=== PATIENT | female | born 1965 | race Caucasian/White ===

== ENCOUNTER → 2020-06-17 15:24 | Outpatient (CLI) | payer BC, SELFPAY ==
[2020-06-17 16:04] LABS: Chloride 106 mmol/L (98-107); Sodium 141 mmol/L (136-145)
[2020-06-17 16:05] LABS: Potassium 4.5 mmoL/L (3.5-5.1)
[2020-06-17 16:07] LABS: Alanine Aminotransferase 17 U/L (12-78); Albumin Level 4.9 g/dl (3.5-5.0); Alkaline Phosphatase 78 U/L (38-126); Anion Gap 10.5 mEq/L (5-15); Aspartate Amino Transferase 23 U/L (14-36); Bilirubin,Total 0.5 mg/dl (0.2-1.3); Blood Urea Nitrogen 21 mg/dl (7-17); Carbon Dioxide 29 mmol/L (22.0-30.0); Estimated Glomerular Filt Rate 87 ml/min (>60); GFR (African American) 106 ML/MIN (>60); Globulin 2.4 g/dL (1.3-3.2); Total Protein,Serum 7.3 g/dl (6.3-8.2)
[2020-06-17 16:08] LABS: Calcium 9.8 mg/dl (8.4-10.2); Glucose 108 mg/dl (74-100)
[2020-06-17 16:38] LABS: Thyroid Stimulating Hormone 1.63 uIU/mL (0.465-4.68)
[2020-06-17 16:44] LABS: Erythrocyte Sedimentation Rate 13 mm/hr (0-30)
[2020-06-22 17:41] LABS: Antinuclear Antibodies, IFA Negative (.)
== END ==
PROVIDERS: Visit Provider Family Medicine
DX: H01.004 Unspecified blepharitis left upper eyelid (principal); J30.1 Allergic rhinitis due to pollen
CPT/HCPCS: 80053; 84443; 85651; 86038

== ENCOUNTER → 2020-07-01 15:43 | Outpatient (POV) | payer BC, SELFPAY | PROVIDERS: Visit Provider Family Medicine | DX: Z00.00 Encounter for general adult medical examination without abnormal findings (principal) ==

== ENCOUNTER → 2020-07-29 14:59 | Outpatient (POV) | payer BC, SELFPAY | DX: Z00.00 Encounter for general adult medical examination without abnormal findings (principal) ==

== ENCOUNTER 2020-09-06 17:14 | Emergency (ER) | payer BC, SELFPAY ==
[2020-09-06 18:00] VITALS: BP 212/100; PULSE 72; RESP 22; TEMP 37; O2SAT 97; BMI 31.2
--- NOTE | 2020-09-06 18:36 | HMH.EDUTC ---
[facility] [place] Clinical Impression: Leg pain Qualifiers: Laterality: left Qualified Code(s): M79.605 - Pain in left leg Disposition: Home, Self-Care Condition on Discharge: Good Instructions: DI for Leg Pain Additional Instructions: You was given out patient order for venous dopler they should call you tomorrow to schedule this procedure Follow up with your Family Doctor if no improvement or any worsening of symptoms Return if needed Follow up with your Family Doctor as needed for re-evaluation of elevated blood pressure Straight to ER if any life threatening symptoms Warm compresses may help when pain starts Referrals: Anuj Brown MD [Primary Care Provider] - As needed Time of Disposition: 19:24 Medical Decision Making - Woodrow Inquiry Pt receiving controlled substance: No Woodrow was queried for this patient: No Vital Signs: 09/06/20 18:00 Temperature 98.6 F Temperature Source Oral Pulse Rate [Right Brachial] 72 Respiratory Rate 22 Blood Pressure [Right Arm] 212/100 H Blood Pressure Mean [Right Arm] 137 Blood Pressure Source [Right Arm] Automatic Cuff Blood Pressure Position [Right Arm] Sitting 02 Sat by Pulse Oximetry 97 Oxygen Delivery Method Room Air Orders (Tests/Meds): ORDERS Category Date Time Status XR tibia fibula LT 2V Stat Exams 09/06/20 18:39 Taken - Radiology Data #1 Image(s): Tib/Fib Image Reviewed: Yes I reviewed the patient's radiology image Preliminary Findings: No Fracture Seen Medical Decision Narrative: Patient blood pressure elevated discussed with patient about transfer to the ED and patient declined States that she was nervous about coming into the [facility] and did not want to be transferred she would follow up with her PCP [facility] [place] - General Stated complaint: left leg swelling and burning Time Seen by Provider: 09/06/20 18:36 Mode of Arrival: Ambulatory Source of Information: Patient Limitations: No Limitations Description of Symptoms (Recalled from Triage Doc. by RN): PATIENT C/O PAIN AND INTERMITTEN SWELLING TO LEFT LOWER LEG X 3-4 WEEKS HEENT Symptoms (Recalled from RN notes): No Resp Symptoms (Recalled from RN notes): No Skin Symptoms (Recalled from RN notes): No MS Symptoms (Recalled from RN notes): Yes Functional Status (Recalled from RN notes): WNL - History of Present Illness Provider Complaint: Patient states that she has been having burning like sensation on and off for several weeks States that it occurs most at night when she lays down States that burning pain has come and gone and sometimes her leg feels a little swollen States that she has not done anything that she is aware of to hurt it Denies any recent trips or long periods of sitting - Related Data Allergies Allergy/AdvReac Type Severity Reaction Status Date / Time No Known Allergies Allergy Verified 09/06/20 18:17 - Worker's Comp Is this a Worker's Comp case?: No [facility] History - Hepatitis A Screen Drug use history?: No High risk sexual behaviors?: No History of sexually transmitted infection?: No Currently employed?: No Childcare worker?: No Do you have indoor plumbing?: Yes Do you have electricity?: Yes Attestation statement:: This patient has been screened for Hepatitis A risk factors. I have reviewed the patient's past medical history: Yes - Social History Alcohol Intake: never Occupational Status: other ROS Obtained: Yes All systems reviewed & no additional complaints, Yes Systems reviewed as appropriate & no additional complaints - Constitutional Constitutional: Reports system reviewed and no additional complaints, except as docu - Cardiovascular Cardiovascular: Reports system reviewed and no additional complaints, except as docu - Respiratory Respiratory: Reports system reviewed and no additional complaints, except as docu - Gastrointestinal Gastrointestingal: Reports: system reviewed and no additional complaints, except as docu Physical Exam
--- NOTE | 2020-09-06 18:39 | XR_ITS ---
PROCEDURE INFORMATION: Exam: XR Left Tibia and Fibula Exam date and time: 09/06/2020 6:39 PM Age: 55 years old Clinical indication: Patient HX: Left lower leg pain for several weeks, no known injury. ; Additional info: Pain in lower leg TECHNIQUE: Imaging protocol: XR Left tibia and fibula. Views: 2 views. COMPARISON: No relevant prior studies available. FINDINGS: Bones/joints: No acute fracture or dislocation. No significant osteoarthrosis. No joint space erosion. Small dorsal calcaneal enthesophyte. Soft tissues: Normal. IMPRESSION: No acute osseous finding.
[2020-09-06 19:22] VITALS: BP 158/92
[2020-09-06 19:28] VITALS: BP 158/92; PULSE 72; RESP 22; TEMP 37; O2SAT 97
== END 2020-09-06 19:34 | disposition home or self-care (01) ==
PROVIDERS: Emergency Provider Nurse Practitioner; PCP Family Medicine
DX: M79.605 Pain in left leg (principal); R60.0 Localized edema
CPT/HCPCS: 73590; 99202; G0463

== ENCOUNTER → 2020-09-11 08:36 | Outpatient (CLI) | payer BC, SELFPAY ==
--- NOTE | 2020-09-11 08:45 | CA_ITS ---
APPROVED REPORT Left Lower Extremity Venous Study for DVT. Client Technical Professional: DESTINI Indications Lower Extremity Pain: Left Lower Extremity Edema: Left Pain in LLE x 3-4 weeks. She denies trauma. Pain is in the mid lateral aspect of the left calf. Vein Imaging CFV (L): compressive, spontaneous, phasic, augmentation FEM (L): compressive, spontaneous, phasic, augmentation POP (L): compressive, spontaneous, phasic, augmentation PTV (L): Compressible GSV (L): compressive, spontaneous, phasic, augmentation Peroneals (L):Compressible GAS (L): Compressible Findings No evidence of DVT or superficial thrombophlebitis in the veins scanned of the left lower extremity. Conclusion No evidence of DVT or superficial thrombophlebitis in the veins scanned of the left lower extremity. Electronically signed by : Kenn Oreilly MD 09/11/2020 15:10:30
== END ==
PROVIDERS: PCP Family Medicine; Visit Provider Nurse Practitioner
DX: M79.662 Pain in left lower leg (principal); M79.89 Other specified soft tissue disorders
CPT/HCPCS: 93971

== ENCOUNTER → 2020-09-15 14:24 | Outpatient (CLI) | payer BC, SELFPAY ==
--- NOTE | 2020-09-15 14:32 | XR_ITS ---
PROCEDURE: XR LUMBAR SPINE MIN 4V CLINICAL INDICATION: BACK PAIN COMPARISON: No exams were available for comparison FINDINGS: Minimal lumbar curvature convex left. No fracture or dislocation. No lytic or blastic change. There is mild degenerative disc disease at L2-L3. Facet arthritic changes are present at the lumbosacral junction. 5 mm stone is present in the mid polar region of the left kidney. IMPRESSION: Degenerative changes lumbar spine. Left nephrolithiasis Dictated by: Kenn Oreilly MD 09/15/2020 14:55 Kenn Oreilly MD in [place] 09/15/2020 14:55
== END ==
PROVIDERS: PCP Family Medicine; Visit Provider Nurse Practitioner Family
DX: M54.9 Dorsalgia, unspecified (principal); M54.5 Low back pain
CPT/HCPCS: 72110

== ENCOUNTER 2020-11-12 17:45 | Emergency (ER) | payer OTHER, BC, SELFPAY ==
[2020-11-12 18:50] VITALS: BP 212/88; PULSE 79; RESP 18; TEMP 36.8; O2SAT 99; BMI 31.2
--- NOTE | 2020-11-12 19:07 | XR_ITS ---
PROCEDURE INFORMATION: Exam: XR Right Foot Exam date and time: 11/12/2020 7:07 PM Age: 55 years old Clinical indication: Patient HX: Right lateral foot and heel pain for a week. Uses a pedal on a machine at work. No known injury. TECHNIQUE: Imaging protocol: XR Right foot. Views: 3 or more views. COMPARISON: No relevant prior studies available. FINDINGS: Bones/joints: Degenerative changes in the 1st tarsal metatarsal joint with joint space narrowing. Mild hallux valgus deformity. Calcaneal spurring. There is a fracture of the sesamoid bone adjacent to the cuboid. Soft tissues: Normal. IMPRESSION: Fracture of the sesamoid bone adjacent to the cuboid. No additional fracture or dislocation.
--- NOTE | 2020-11-12 20:10 | HMH.EDUTC ---
[facility] [place] Disposition Clinical Impression: Right foot pain, Tendinitis of right foot Disposition: Home, Self-Care Condition on Discharge: Good Instructions: DI for Tendinitis, DI for Foot Pain Additional Instructions: Rest the extremity, Wear the matthew wrap for compression, Elevate the extremity as tolerated while you are resting. Follow up with Dr. Domingo (podiatry). I put in a referral but you need to call her office and schedule an appointment. Sometimes ankle and foot tendonitis is hard to get completely better because you will still have to walk and use your foot a lot. So, plan on following up with the software test specialist. Follow up with your regular doctor. GO TO THE ER FOR ANY WORSENING SYMPTOMS Prescriptions: methylPREDNISolone [Medrol] 4 mg PO DIRECTED 6 Days #21 packet Transmission Status: Received by [id number] Referrals: Anuj Brown MD [Primary Care Provider] - Maegan Domingo DPM [Staff Physician] - Time of Disposition: 20:17 Medical Decision Making - Medical Records Medical records reviewed: No: I reviewed the patient's medical records. - Woodrow Inquiry Pt receiving controlled substance: No Vital Signs: 11/12/20 18:50 11/12/20 20:20 Temperature 98.2 F 98.2 F Temperature Source Oral Pulse Rate 79 Pulse Rate [Right Brachial] 79 Respiratory Rate 18 18 Blood Pressure 212/88 H Blood Pressure [Right Arm] 212/88 H Blood Pressure Mean [Right Arm] 129 Blood Pressure Source [Right Arm] Automatic Cuff Blood Pressure Position [Right Arm] Sitting 02 Sat by Pulse Oximetry 99 Oxygen Delivery Method Room Air - Radiology Data #1 Image(s): Foot/Toes Image Reviewed: Yes I reviewed the patient's radiology image Preliminary Findings: Abnormal PROCEDURE INFORMATION: Exam: XR Right Foot Exam date and time: 11/12/2020 7:07 PM Age: 55 years old Clinical indication: Patient HX: Right lateral foot and heel pain for a week. Uses a pedal on a machine at work. No known injury. TECHNIQUE: Imaging protocol: XR Right foot. Views: 3 or more views. COMPARISON: No relevant prior studies available. FINDINGS: Bones/joints: Degenerative changes in the 1st tarsal metatarsal joint with joint space narrowing. Mild hallux valgus deformity. Calcaneal spurring. There is a fracture of the sesamoid bone adjacent to the cuboid. Soft tissues: Normal. IMPRESSION: Fracture of the sesamoid bone adjacent to the cuboid. No additional fracture or dislocation. [facility] [place] HPI - General Stated complaint: right foot pain Time Seen by Provider: 11/12/20 19:00 Mode of Arrival: Ambulatory Source of Information: Patient Limitations: No Limitations Description of Symptoms (Recalled from Triage Doc. by RN): PATIENT C/O PAIN TO OUTER SIDE OF RIGHT FOOT X 2 WEEKS. STATES WHEN SHE WAS WALKING TODAY SHE HAD A SHARP RADIATE THROUGH HER ANKLE. NO KNOWN INJURY HEENT Symptoms (Recalled from RN notes): No Resp Symptoms (Recalled from RN notes): No Skin Symptoms (Recalled from RN notes): No MS Symptoms (Recalled from RN notes): Yes Functional Status (Recalled from RN notes): WNL - History of Present Illness Provider Complaint: She has been having right foot pain for the past 2 weeks. She denies any injury. She states that today her pain got worse, so she came in to try to get it checked out. She is not diabetic. - Related Data Previous Rx's Medication Instructions Recorded methylPREDNISolone [Medrol] 4 mg PO DIRECTED 6 Days #21 11/12/20 packet Allergies Allergy/AdvReac Type Severity Reaction Status Date / Time No Known Allergies Allergy Verified 09/06/20 18:17 - Worker's Comp Is this a Worker's Comp case?: No [facility] History - Hepatitis A Screen Drug use history?: No High risk sexual behaviors?: No History of sexually transmitted infection?: No Currently employed?: No Childcare worker?: No Do
[2020-11-12 20:20] VITALS: BP 212/88; PULSE 79; RESP 18; TEMP 36.8; O2SAT 99
== END 2020-11-12 20:25 | disposition home or self-care (01) ==
PROVIDERS: Emergency Provider Nurse Practitioner Family; PCP Family Medicine
DX: M77.51 Other enthesopathy of right foot and ankle (principal); S92.811A Other fracture of right foot, initial encounter for closed fracture
CPT/HCPCS: 73630; 99202; G0463

== ENCOUNTER 2020-11-13 11:26 | Outpatient (RCR) | payer BC, SELFPAY | END 2020-11-13 12:24 | disposition home or self-care (01) | LOC: PT 11:26 | PROVIDERS: Visit Provider Podiatrist | DX: M79.671 Pain in right foot (principal); M77.51 Other enthesopathy of right foot and ankle | CPT/HCPCS: 97760 ==

== ENCOUNTER → 2020-12-16 14:33 | Outpatient (CLI) | payer OTHER, SELFPAY ==
--- NOTE | 2020-12-16 14:34 | MR_ITS ---
PROCEDURE INFORMATION: Exam: MR Right Lower Extremity Other Than Joint Without and With Contrast; Foot Exam date and time: 12/16/2020 2:34 PM Age: 55 years old Clinical indication: Patient HX: Right lateral foot pain and swelling. No initial injury. Symptoms x1 month; Additional info: Evaluate right foot injury and pain TECHNIQUE: Imaging protocol: MR of the Right lower extremity without and with intravenous contrast. Exam focused on the foot. Contrast material: PROHANCE; Contrast volume: 15 ml; Contrast route: IV; COMPARISON: CR XR FOOT RT MIN 3V 11/12/2020 7:17 PM FINDINGS: Bones and cartilage: First MTP arthropathy. Cystic change is identified within the plantar aspect of the 1st metatarsal head. Increased STIR signal intensity is identified within the medial sub-hallux sesamoid bone, suggestive of a cyst or sesamoiditis. T1 isointense soft tissue plantar to the 5th metatarsal head, likely due to a pressure lesion. This is hyperintense on STIR. No dislocation of the foot. Mild valgus deviation of the great toe. An ossicle is identified adjacent to the calcaneocuboid joint with enhancement of the bone marrow and surrounding soft tissues. This enhancement is likely due to marrow and soft tissue edema, with fracture of this bone described on prior x-rays. Joint spaces: Effusion posterior to the tibiotalar joint. Minimal subtalar joint effusion. Small intermetatarsal effusion at the 1st interspace. LIGAMENTS: Calcaneofibular ligament: Mild edema adjacent to the calcaneofibular ligament without visualized tear. Ligament sprain is considered. Lisfranc ligament: No evidence of tear. TENDONS: Flexor tendons of foot: Mild fluid adjacent to the flexor hallucis tendon, suggestive of tenosynovitis. Tibialis posterior tendon: No evidence of tear. Peroneal tendons: Partial split tear of the peroneus brevis tendon. Partial tear also visualized of the peroneus longus tendon. There is mild fluid adjacent to the peroneal tendons. Extensor tendons of foot: No evidence of tear. Tibialis anterior tendon: No evidence of tear. Achilles tendon: There is a decrease in caliber of the distal Achilles tendon, suggestive of partial tear. Mild heterogeneous signal intensity of the Achilles tendon. Tarsal canal (Sinus tarsi): Edema within the sinus tarsi. Soft tissues: Minimal fluid within the retrocalcaneal bursa. Mild soft tissue swelling plantar to the 2nd MTP joint. The above. Plantar fascia: Thickening and heterogeneous signal intensity of the proximal plantar fascia with adjacent heel pad edema, consistent with plantar fasciitis. IMPRESSION: 1. Partial split tear of the peroneus brevis tendon. Partial tear also visualized of the peroneus longus tendon. There is mild fluid adjacent to the peroneal tendons. 2. An ossicle is identified adjacent to the calcaneocuboid joint with enhancement of the bone marrow and surrounding soft tissues. This enhancement is likely due to marrow and soft tissue edema, with fracture of this bone described on prior x-rays. 3. MR findings consistent with plantar fasciitis. 4. Effusion posterior to the tibiotalar joint. Minimal subtalar joint effusion. 5. There is a decrease in caliber of the distal Achilles tendon, suggestive of partial tear. Clinical correlation is recommended. 6. First MTP arthropathy. Cystic change is identified within the plantar aspect of the 1st metatarsal head. 7. Increased STIR signal intensity is identified within the medial sub-hallux sesamoid bone, suggestive of a cyst or sesamoiditis. 8. Mild valgus deviation of the great toe. 9. Mild edema adjacent to the calcaneofibular ligament without visual
== END ==
PROVIDERS: PCP Family Medicine; Visit Provider Podiatrist
DX: M79.671 Pain in right foot (principal); M77.51 Other enthesopathy of right foot and ankle
CPT/HCPCS: 73720; A9576

== ENCOUNTER 2020-12-28 13:34 | Outpatient (RCR) | payer BC, MEDICAID, SELFPAY ==
--- NOTE | 2020-12-28 15:07 | HMH.PTOPEV ---
PT Outpatient Evaluation Rehab PT Outpatient Evaluation Start: 12/28/20 13:37 Freq: Status: Active Protocol: Document 12/28/20 13:45 CHRISTOPHERVANGIE (Rec: 12/28/20 15:07 GUSTABO [id number]) Electronically Signed By Butch Evans, JOHNSON 12/28/20 13:45 Outpatient Therapy Subjective History Subjective History This is the initial evaluation for Shell Rosado. Pt is a 55 y /o female referred for Peroneal tendonitis. Pt reports she uses a foot pedal at work all day. She states one day she got up and started walking when she felt and heard a crack in her R ankle. Pt reported a 10/10 pain with swelling. Pt went to ED to get imaging, but imaging was negative for fractures. Pt was told she had peroneal tendonitis and then given a boot. Pt later went to Foot doctor where imaging then found Peroneal longus/brevis partial tears and other associated injuries. Pt's boot was d/c last Monday and progressed to a tie up foot brace. Pt has been off work but is retuning MondayJanuary 04. 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/Reading,Recreation Activity,Walking Symptom Description Intermittent Level of pain today (0-10) 3 Pain scale - at its best (0-10) 0 Pain scale - at its worst (0-10) 10 Ankle/Foot Eval Gait Observation General Gait Pattern Observation No Deviations/Normal Palpation Tenderness right Ankle/Foot Palpation Findings Tenderness Ankle/Foot Palpation Overall Comment along Peroneal longus/brevis insertions/tendons ROM Ankle/Foot Dorsiflexion w/Knee Extended 35 Active Range Motion (degrees) Ankle/Foot Plantar Flexion Active Range 60 of Motion (degrees) Ankle/Foot Eversion Active Range of 23 Motion (degrees) Ankle/Foot Inversion Active Range of 31 Motion (degrees) MMT Ankle Dorsiflexion Strength Grade 5 Normal Ankle Plantarflexion Strength Grade
== END 2020-12-28 13:40 | disposition home or self-care (01) ==
LOC: PT 13:34
PROVIDERS: PCP Family Medicine; Visit Provider Podiatrist
DX: M79.671 Pain in right foot (principal); M76.71 Peroneal tendinitis, right leg; M77.51 Other enthesopathy of right foot and ankle
CPT/HCPCS: 97163

== ENCOUNTER → 2021-02-16 09:56 | Outpatient (CLI) | payer BC, SELFPAY | PROVIDERS: PCP Family Medicine; Visit Provider Nurse Practitioner | DX: Z20.822 Contact with and (suspected) exposure to COVID-19 (principal) | CPT/HCPCS: C9803; U0003; U0005 ==

== ENCOUNTER 2021-02-19 15:47 | Outpatient (RCR) | payer BC, MEDICAID, SELFPAY ==
--- NOTE | 2021-02-19 16:41 | HMH.PTOPEV ---
PT Outpatient Evaluation Rehab PT Outpatient Evaluation Start: 02/19/21 15:58 Freq: Status: Active Protocol: Document 02/19/21 16:24 IRENEPERLA (Rec: 02/19/21 16:34 IRENEILSAALOK [id number]) Electronically Signed By Sergio Lerma, PT 02/19/21 16:24 Outpatient Therapy Subjective History Subjective History This is the inital evaluation for the 2nd episode of PT for this patient. Pt is a 55 y/o female initially referred for Peroneal tendonitis. Pt reports she uses a foot pedal at work all day. She states one day she got up and started walking when she felt and heard a crack in her R ankle. Pt reported a 10/10 pain with swelling following initial injury. Pt went to ED to get imaging, but imaging was negative for fractures. Pt was told she had peroneal tendonitis and then given a boot. Pt later went to Foot doctor where imaging then found Peroneal longus/brevis partial tears and other associated injuries. Patient ran out of approved visit from her initial episode. Patient has since returned to full duty at work with no functional limitations at work or home. Patient reports no pain. All ROM/MMT measurements WFL. Patient states that she believes she does not need therapy. Ankle/Foot Eval Palpation Tenderness right Ankle/Foot Palpation Findings None/Normal ROM Ankle/Foot Dorsiflexion w/Knee Extended WFL Active Range Motion (degrees) Ankle/Foot Plantar Flexion Active Range WFL of Motion (degrees) Ankle/Foot Eversion Active Range of WFL Motion (degrees) Ankle/Foot Inversion Active Range of WFL Motion (degrees) Great Toe ROM Reason Not Measured Within Functional Limits MMT Ankle Dorsiflexion Strength Grade 5 Normal Ankle Plantarflexion Strength Grade 5 Normal Foot Eversion Strength Grade 5 Normal Foot Inversion Strength Grade 5 Normal Special Tests Ankle Anterior Drawer Test Negative Right Ankle Eversion Test Negative Right
== END 2021-02-19 15:50 | disposition home or self-care (01) ==
LOC: PT 15:47
PROVIDERS: Visit Provider Podiatrist
DX: S92.901A Unspecified fracture of right foot, initial encounter for closed fracture (principal); S86.311A Strain of muscle(s) and tendon(s) of peroneal muscle group at lower leg level, right leg, initial encounter; M76.71 Peroneal tendinitis, right leg
CPT/HCPCS: 97163

== ENCOUNTER → 2021-04-28 13:17 | Outpatient (CLI) | payer BC, SELFPAY ==
--- NOTE | 2021-04-28 | CA_ITS ---
APPROVED REPORT EXAM: Comprehensive 2D, Doppler, and color-flow Echocardiogram Licensing Engineer: Shanelle Gallagher RT(R) Ht: 5 ft 0 in Wt: 160lbs BSA: 1.70 BP: 169/83 mmHg Indications: HTN, murmur, palpitations 2D Dimensions LVOT 1.91 cm (M/F) 1.5-2.5 LVEF (Goodwin's) 73.40 % F: 54 - 74 LV Volume 64.30 mL F: 46 - 106 LV Volume Index 38.04 mL/m2 F: 29 - 61 LA Volume 32.30 mL LA Volume Index 19.11 mL/m2 (M/F) 16-34 M-Mode Dimensions RVDd 2.88 cm (0.9-2.6) LA Diam 3.39 cm (1.9-4.0) LVDd 4.56 cm (3.5-5.7) Ao Diam 2.40 cm (2.0-3.7) LVDs 3.29 cm (3.5-5.7) IVSd 0.90 cm (0.6-1.1) PWd 0.86 cm (0.6-1.1) EF (Teich) 54.10% FS 27.90% EDV (Teich) 95.40 mL ESV (Teich) 43.80 mL LV Diastology E Decel Time 233.00 (160-240 msec) E/A Ratio 0.9 MED E' 8.80 (< 7 cm/sec) E'/MED E' Ratio 10.50 (>14) LAT E' 9.90 (<10 cm/sec) E/LAT E' Ratio 9.33 (>14) Mitral Valve MV E Max Juan. 92.00 (40-130 cm/s) MV A Velocity 97.00 (40-130 cm/s) E/A Ratio 0.95 MV Decel. Time 233.00 (160-240 ms) MV PHT 68.00 ms Tricuspid Valve TR P. Velocity 256.00 cm/s RAP Estimate 10.00 mmHg RVSP 36.30 mmHg Left Ventricle Left atrium is mildly enlarged, left ventricle is normal size, mild concentric left ventricular hypertrophy, visually estimated ejection fraction 55% with no regional wall motion abnormality, diastolic parameters are inconclusive in the study. Right Ventricle Right atrium and right ventricle relatively normal size and function. Aortic Valve Aortic valve is minimally thickened and fibrosed, there is no aortic stenosis or aortic insufficiency. Mitral Valve Mitral valve grossly normal, there is trace mitral regurgitation. Tricuspid Valve Tricuspid valve grossly normal, there is trace tricuspid regurgitation, tricuspid regurgitation jet velocity is inadequate for calculation of the right ventricular systolic pressure. Pulmonic Valve Pulmonic valve is poorly visualized. Great Vessels Aortic root is normal size. Inferior vena cava is poorly visualized. Pericardium No significant pericardial effusion noted. Conclusion 1. Mildly enlarged left atrium, normal left ventricular size, mild concentric left ventricular hypertrophy, visually estimated ejection fraction 55% with no regional wall motion abnormality, diastolic parameters are inconclusive. 2. Trace mitral and tricuspid regurgitation. 3. No significant pericardial effusion. 4. Inferior vena cava is poorly visualized. Electronically signed by : Sammy Zuluaga MD 04/28/2021 20:08:44
== END ==
PROVIDERS: PCP Family Medicine; Visit Provider Family Medicine
DX: I10 Essential (primary) hypertension (principal)
CPT/HCPCS: 93306

== ENCOUNTER → 2022-01-18 09:17 | Outpatient (CLI) | payer BC, SELFPAY ==
--- NOTE | 2022-01-18 09:19 | MM_ITS ---
PROCEDURE INFORMATION: Exam: Bilateral Screening 3D Mammography Exam date and time: 01/18/2022 9:17 AM Age: 56 years old Clinical indication: Screening examination. No family history of breast cancer. TECHNIQUE: Imaging protocol: Bilateral Screening tomosynthesis and 2D mammography including computer-aided detection (CAD) when performed. COMPARISON: [facility] DIG MAMM-SCREEN PAIGE 12/16/2013 2:32 PM FINDINGS: MAMMOGRAPHY: Breast composition: There are scattered areas of fibroglandular density. Mass: No suspicious mass. Architectural distortion: None. Calcifications: No suspicious calcifications. Asymmetric density: None. Skin thickening: None. Axillary adenopathy: None. IMPRESSION: No mammographic evidence of malignancy. Annual screening is recommended unless otherwise clinically indicated. ASSESSMENT: BI-RADS Category 1: Negative
== END ==
PROVIDERS: PCP Family Medicine; Visit Provider Family Medicine
DX: Z12.31 Encounter for screening mammogram for malignant neoplasm of breast (principal)
CPT/HCPCS: 77063; 77067

== ENCOUNTER 2022-05-10 18:45 | Emergency (ER) | payer BC, SELFPAY ==
[2022-05-10] VITALS (8 sets, daily range): BP systolic 123–143; BP diastolic 63–78; PULSE 64–78; RESP 14–16; TEMP 36.6; O2SAT 97–100; BMI 31.2
--- NOTE | 2022-05-10 19:16 | CT_ITS ---
PROCEDURE INFORMATION: Exam: CT Abdomen And Pelvis With Contrast Exam date and time: 05/10/2022 7:46 PM Age: 57 years old Clinical indication: Abdominal pain; Localized; Left lower quadrant (llq); Additional info: Llq pain TECHNIQUE: Imaging protocol: Computed tomography of the abdomen and pelvis with contrast. Radiation optimization: All CT scans at this facility use at least one of these dose optimization techniques: automated exposure control; mA and/or kV adjustment per patient size (includes targeted exams where dose is matched to clinical indication); or iterative reconstruction. Contrast material: ISOVUE; Contrast volume: 75 ml; Contrast route: IV; REPORTING DATA: Count of CT and Cardiac NM exams in prior 12 months: This patient has received 0 known CTs and 0 known cardiac nuclear medicine studies in the 12 months prior to the current study. COMPARISON: CR XR LUMBAR SPINE MIN 4V 09/15/2020 2:34 PM FINDINGS: Liver: Normal. No mass. Gallbladder and bile ducts: Normal. No calcified stones. No ductal dilation. Pancreas: Normal. No ductal dilation. Spleen: Normal. No splenomegaly. Adrenal glands: Normal. No mass. Kidneys and ureters: Multiple small calyceal stones noted in both kidneys. No evidence of obstructing ureteral stone or hydronephrosis. Stomach and bowel: There is moderate diverticulosis throughout the distal colon. Focal wall thickening and inflammatory changes seen in the lower descending colon compatible with acute diverticulitis. No evidence of diverticular perforation or abscess. Appendix: No evidence of appendicitis. Intraperitoneal space: Unremarkable. No free air. No significant fluid collection. Vasculature: Unremarkable. No abdominal aortic aneurysm. Lymph nodes: Unremarkable. No enlarged lymph nodes. Urinary bladder: Unremarkable as visualized. Reproductive: Uterus is surgically absent. There is a 2.5 cm simple appearing left adnexal cyst. Pelvic organs are otherwise unremarkable. Bones/joints: There is mild thoracolumbar scoliosis and multilevel degenerative disease. Soft tissues: Unremarkable. IMPRESSION: 1. Uncomplicated acute diverticulitis of the distal descending colon 2. 2.5 cm simple appearing left adnexal cyst in the pelvis compatible with a benign physiologic cyst. No further workup indicated. 3. Bilateral nephrolithiasis without evidence of obstructing ureteral stone or hydronephrosis
[2022-05-10 19:19] LABS: Microscopic, Urine URINE MICROSCOPIC (MICROSCOPIC)
[2022-05-10 19:26] LABS: Basophils # 0.2 K/mm3 (0-0.2); Basophils % 1.8 % (0.1-2.0); Eosinophils # 0.3 K/mm3 (0.0-0.4); Eosinophils % 2.8 % (0.1-12.0); Hematocrit 40.6 % (37.0-47.0); Hemoglobin 13.7 g/dL (12.2-16.2); Lymphocytes # 2.1 K/mm3 (0.7-4.5); Lymphocytes % 21.6 % (10-50); Mean Corpuscular HGB Conc 33.7 g/dL (31.8-35.4); Mean Corpuscular Hemoglobin 29.2 pg (27.0-31.2); Mean Corpuscular Volume 86.7 fl (81-99); Mean Platelet Volume 8.5 fl (7.4-10.4); Monocytes # 0.6 K/mm3 (0.1-1.0); Monocytes % 6.1 % (1.7-9.3); Neutrophils # 6.6 K/mm3 (1.8-7.8); Neutrophils % 67.6 % (37.0-80.0); Platelet Count 306 K/mm3 (142-424); Red Blood Count 4.69 M/mm3 (4.20-5.40); Red Cell Distribution Width 13.6 % (11.5-17.5); White Blood Count 9.7 K/mm3 (4.8-10.8)
[2022-05-10 19:29] LABS: Chloride 104 mmol/L (98-107); Potassium 3.1 mmoL/L (3.5-5.1); Sodium 139 mmol/L (136-145)
[2022-05-10 19:32] LABS: Alanine Aminotransferase 28 U/L (12-78); Albumin Level 4.9 g/dl (3.5-5.0); Alkaline Phosphatase 105 U/L (38-126); Amylase 88 U/L (30-110); Anion Gap 11.1 mEq/L (5-15); Aspartate Amino Transferase 37 U/L (14-36); Bilirubin,Total 0.4 mg/dl (0.2-1.3); Blood Urea Nitrogen 25 mg/dl (7-17); Carbon Dioxide 27 mmol/L (22.0-30.0); Creatinine Clearance Estimated 90 mL/min (50-200); Estimated Glomerular Filt Rate 74 ml/min (>60); GFR (African American) 90 ML/MIN (>60); Glucose 112 mg/dl (74-100); Lipase 99 U/L (23-300)
[2022-05-10 19:33] LABS: Albumin/Globulin Ratio 1.4 (1.1-1.8); Globulin 3.4 g/dL (1.3-3.2); Total Protein,Serum 8.3 g/dl (6.3-8.2)
[2022-05-10 19:35] LABS: Appearance,Urine CLEAR (Clear); Bilirubin,Urine Negative (Negative); Blood, Urine TRACE-I (Negative); Color,Urine YELLOW (Yellow); Glucose,Urine (UA) Negative (Negative); Ketones,Urine Negative (Negative); Leukocyte Esterase,Urine Negative (Negative); Nitrate,Urine Negative (Negative); PH,Urine 5.5 (5.0-8.5); Protein,Urine Negative (Negative); Specific Gravity, Urine >= 1.030 (1.005-1.030); Urobilinogen,Urine 0.2 EU/dl (0.2)
--- NOTE | 2022-05-10 19:41 | PC.NURSE ---
Pt gone to RAD via wheelchair
[2022-05-10 19:49] LABS: WBC,Urine Occasional #/hpf (0-3)
--- NOTE | 2022-05-10 20:09 | PC.NURSE ---
Pt back from RAD
--- NOTE | 2022-05-10 21:05 | PC.NURSE ---
Dr. Mack at
--- NOTE | 2022-05-10 21:07 | HMH.EDABDPAI ---
Discharge Plan Disposition Patient Disposition: Home, Self-Care Prescriptions Prescriptions: New metronidazole 500 mg Tablet 500 mg PO TID Qty: 30 0RF levofloxacin 500 mg tablet 500 mg PO DAILY Qty: 10 0RF Referrals Follow up/Referrals: Anuj Brown MD [Primary Care Provider] - See instructions Clinical Impressions Clinical Impression: Diverticulitis Instructions Patient Instructions: DI for Diverticulitis Discharge ED Provider: Frederick (ED),Vernon Bautista Abdominal Pain HPI General Chief Complaint: Abdominal Pain Stated Complaint: left side pain Time Seen by Provider: 05/10/22 21:07 Mode of Arrival: Ambulatory Source of Information: Patient and Medical Record Limitations: No Limitations Description of Symptoms (Recalled from ER Triage Doc. by RN): Pt c/o sharp LLQ pain since yesterday, tender to palpation. pt denies n/v/d or burning with urination. pain /10 History of Present Illness HPI narrative: pt with lt lower abd pain since yesterday w/o fever or trauma or rash - no urinary sx complaint: abdominal pain Onset (ago): day(s) Consistency: constant Location: LLQ Severity: moderate Associated symptoms: denies other symptoms Related Data Previous Rx's Medication Instructions Recorded levofloxacin 500 mg tablet 500 mg PO DAILY #10 tabs 05/10/22 metronidazole 500 mg tablet 500 mg PO TID #30 tabs 05/10/22 Allergies Allergy/AdvReac Type Severity Reaction Status Date / Time No Known Allergies Allergy Verified 05/10/22 19:30 [facility] Disclaimer: The information contained in this section may have been updated after the patient was seen, as this information can be updated by other users. Medical History (Updated 05/10/22 @ 21:23 by Vernon Mack (ED)MD) Hyperlipidemia Hypertension Hypertension Surgical History (Updated 05/10/22 @ 19:30 by Ashlyn Tomas RN) History of hysterectomy Social History Smoking Status: Never smoker alcohol intake: never current occupational status: other Travel in the last 8 weeks: None ROS Obtained: Yes All systems reviewed & no additional complaints except as documented Physical Exam General General appearance: alert Head Head exam: normocephalic Eye Eye exam: Present PERRL and EOMI ENT ENT exam: Present mucous membranes moist Neck Neck exam: Present trachea midline Respiratory Respiratory exam: Absent respiratory distress Cardiovascular Cardiovascular exam: Present regular rate Abdominal Exam Abdominal exam: Present soft and tenderness; Absent guarding or rebound Abdominal tenderness: Present LLQ and moderate Extremities Exam Extremities exam: Present full ROM Back Exam Back exam: Absent CVA tenderness (L) Neurological Exam Neurological exam: Present alert, oriented X3 and CN II-XII intact; Absent motor sensory deficit Psychiatric Psychiatric exam: Present normal affect Skin Skin exam: Absent rash Medical Decision Making Medical Records Medical records reviewed: Yes I reviewed the patient's medical records. [place] Inquiry Pt receiving controlled substance: No Vital Signs: 05/10/22 19:00 05/10/22 19:30 05/10/22 20:00 Temperature 97.8 F Temperature Source Oral Pulse Rate 68 69 Pulse Rate [Right] 78 Respiratory Rate 14 Blood Pressure 123/70 128/63 Blood Pressure [Right Arm] 135/73 Blood Pressure Mean [Right Arm] 93 Blood Pressure Source [Right Arm] Automatic Cuff Blood Pressure Position [Right Arm] Sitting 02 Sat by Pulse Oximetry 97 97 97 Oxygen Delivery Method Room Air Room Air Lab Data Lab results reviewed: Yes I reviewed the patient's lab results. Lab Results 05/10/22 19:11: Urine Color Yellow, Urine Appearance Clear, Urine pH 5.5, Ur Specific [place] >= 1.030, Urine Protein Negative, Urine Glucose (UA) Negative, Urine Ketones Negative, Urine Blood Trace-i, Urine Nitrate Negative, Urine Bilirubin Negative, Urine Urobilinogen 0.2, Ur Leukocyte Esterase Negative, Uri
--- NOTE | 2022-05-10 21:25 | PC.NURSE ---
Dr. Mack speaking with Dr. Brown
== END 2022-05-10 22:35 | disposition home or self-care (01) ==
PROVIDERS: Emergency Medicine; Emergency Provider Emergency Medicine; PCP Family Medicine
DX: K57.92 Diverticulitis of intestine, part unspecified, without perforation or abscess without bleeding (principal); R10.32 Left lower quadrant pain; E78.5 Hyperlipidemia, unspecified; I10 Essential (primary) hypertension; Z90.710 Acquired absence of both cervix and uterus
CPT/HCPCS: 74177; 80053; 81001; 82150; 83690; 85025; 96361; 96374; 96375; 99285; Q9967

== ENCOUNTER 2022-05-16 11:39 | Emergency (ER) | payer BC, SELFPAY ==
[2022-05-16 12:30] VITALS: BP 133/79; PULSE 83; RESP 20; TEMP 36.8; O2SAT 98; BMI 45.8
--- NOTE | 2022-05-16 12:40 | XR_ITS ---
FINAL REPORT CLINICAL HISTORY: Chest congestion, cough FINDINGS: Two views of the chest were obtained. The heart size and pulmonary vascularity are within normal limits. The mediastinum is normal. No acute pulmonary abnormality is identified. There is no pneumothorax. The bony thorax is intact. IMPRESSION: No active cardiopulmonary disease. Reviewed, Interpreted and Dictated by Aguilar Chau III, MD Transcribed by Patt Heath Authenticated and [facility]
--- NOTE | 2022-05-16 13:05 | EXP.UTC ---
Discharge Plan Disposition Patient Disposition: Home, Self-Care Condition: Good Prescriptions Prescriptions: No Action lisinopril-hydrochlorothiazide 20-12.5 mg tablet 1 tab PO DAILY Label Comments: TAKE 1 TABLET BY MOUTH ONCE DAILY potassium chloride 10 mEq tablet extended release 10 meq PO DAILY Label Comments: TAKE 1 TABLET BY MOUTH TWICE DAILY venlafaxine 37.5 mg tablet 37.5 mg PO DAILY Label Comments: TAKE 1 TABLET BY MOUTH ONCE DAILY metoprolol succinate 25 mg tablet extended release 24 hr 25 mg PO DAILY Label Comments: TAKE 1 TABLET BY MOUTH AT BEDTIME rosuvastatin 10 mg tablet 10 mg PO DAILY topiramate 50 mg tablet 50 mg PO DAILY Label Comments: TAKE 1 TABLET BY MOUTH ONCE DAILY AT BEDTIME metronidazole 500 mg tablet 500 mg PO TID levofloxacin 500 mg tablet 500 mg PO DAILY Referrals Follow up/Referrals: Anuj Brown MD [Primary Care Provider] - See instructions Activity Restrictions/Add. Instructions Additional Instructions/Restrictions: *Monitor Temp, Over the counter Motrin or Tylenol as directed/as needed Tylenol every 4 hours and Motrin every 6 hours (as long as your family doctor has told you that you can take it) for fever or pain. and straight to ER if unable to lower temp less than 101.0 after medication given *Warm salt water gargles may help to soothe the throat *Throat Lozenges? *Warm fluids like tea with honey may help to soothe the throat? *Sleep elevated *Humidifier/Vaporizer Continue taking Levaquin as prescribed Follow up IMMEDIATELY for new or worsening symptoms or no Noticeable improvement over the next 48-72 hours. 911 for difficulty breathing or swallowing Clinical Impressions Clinical Impression: URI (upper respiratory infection) Instructions Patient Instructions: Levofloxacin, Guaifenesin Discharge ED Provider: Marly Molina [facility] HPI General Stated complaint: congestion,cough,headache Mode of Arrival: Ambulatory Source of Information: Patient Limitations: No Limitations Time Seen by Provider: 05/16/22 13:05 Description of Symptoms (Recalled from Triage Doc. by RN): weak, cough, LINARES, congestion, hurts in ears HEENT Symptoms (Recalled from RN notes): Yes Resp Symptoms (Recalled from RN notes): No Skin Symptoms (Recalled from RN notes): No MS Symptoms (Recalled from RN notes): No Functional Status (Recalled from RN notes): n/a History of Present Illness Provider Complaint: Patient states that she is currently on Levaquin States that for the last couple of days she will cough up some white colored mucous and today her ears was hurting and she was feeling tired and achy states that she was worried that she may be getting bronchitis or something so she came in to get checked Related Data Home Medications Medication Instructions Recorded Confirmed levofloxacin 500 mg tablet 500 mg PO DAILY abx 05/16/22 05/16/22 lisinopril 20 1 tab PO DAILY . 05/16/22 05/16/22 mg-hydrochlorothiazide 12.5 mg tablet metoprolol succinate 25 mg 25 mg PO DAILY . 05/16/22 05/16/22 tablet,extended release 24 hr metronidazole 500 mg tablet 500 mg PO TID abx 05/16/22 05/16/22 potassium chloride 10 mEq 10 meq PO DAILY . 05/16/22 05/16/22 tablet,extended release rosuvastatin 10 mg tablet 10 mg PO DAILY . 05/16/22 05/16/22 topiramate 50 mg tablet 50 mg PO DAILY . 05/16/22 05/16/22 venlafaxine 37.5 mg tablet 37.5 mg PO DAILY . 05/16/22 05/16/22 Allergies Allergy/AdvReac Type Severity Reaction Status Date / Time No Known Allergies Allergy Verified 05/16/22 12:43 Worker's Comp Is this a Worker's Comp case?: No [facility] Disclaimer: The information contained in this section may have been updated after the patient was seen, as this information can be updated by other users. Medical History (Updated 05/16/22 @ 14:08 by Marly Molina APRN) Hyperlipidemia Hyperten
[2022-05-16 14:21] VITALS: BP 133/79; PULSE 83; RESP 20; TEMP 36.8; O2SAT 98
== END 2022-05-16 14:15 | disposition home or self-care (01) ==
PROVIDERS: Emergency Provider Nurse Practitioner; PCP Family Medicine
DX: J06.9 Acute upper respiratory infection, unspecified (principal); R51.9 Headache, unspecified
CPT/HCPCS: 71046; 99212; 99214; G0463

== ENCOUNTER 2022-07-08 11:16 | Day surgery (SDC) | payer BC, SELFPAY ==
[2022-07-08 11:41] VITALS: BP 147/74; PULSE 80; RESP 16; TEMP 36.4; O2SAT 98; BMI 26.1
--- NOTE | 2022-07-08 12:27 | EXP.ANES.CKL ---
[facility] Disclaimer: The information contained in this section may have been updated after the patient was seen, as this information can be updated by other users. Medical History Hyperlipidemia Hypertension Hypertension Surgical History History of hysterectomy Family History (Updated 07/08/22 @ 11:41 by Mandi Macedo RN) Other No significant family history Social History (Updated 07/08/22 @ 11:40 by Mandi Macedo RN) Smoking Status: Never smoker alcohol intake: never substance use type: denies use current occupational status: employed Travel in the last 8 weeks: None [facility] Anesthesia Checklist Patient Identification Patient Identification: Arm Band and Family Structural Data Admitted From: Home Planned Operative Procedure/s: Colonoscopy Consent for Planned Operative Procedure(s) Verified: Yes Verified Documents: Surgical Consent and History and Physical NPO Status Verified Time NPO: 00:00 Additional verifications Patient : No Anesthesia Reactions: No Hx Blood Transfusions: No Blood Transfusion Reaction: No Cephalosporin Allergy: No Previous Colonoscopy: No Airway Assessment C-Spine Mobility Assessed: Yes TMJ Mobility Assessed: Yes Dentition: Good Dentition Neurological Assessment Level of Consciousness: Awake, Alert, Appropriate and Follows Commands Hx Seizures: No Numbness or tingling in extremities: No Anesthesia Plan Anesthesia Risk discussed: Yes ASA Class: II Anesthesia Type: MAC Preoperative Comments Pre-Operative Comments: Hypertension. No previous colonoscopy.
[2022-07-08 13:51] VITALS: O2SAT 98
--- NOTE | 2022-07-08 14:20 | P.PCN_ITS ---
Procedure: Date: 07/08/22 Patient Date of :: 1965 Procedure Performed:: Total colonoscopy to terminal ileum Indications:: Patient is a 57-year-old female. She has never had previous colonoscopy. She did present to the emergency department on 05/10/2022 with left lower quadrant pain and work-up revealed uncomplicated diverticulitis which was able to be managed as an outpatient. Performing Provider:: Aguilar Roldan MD Referring Provider:: Jordon Brown MD Sedation:: MAC sedation Procedure:: Patient history was obtained and appropriate physical examination was performed. Patient's medications and allergies were reviewed. Informed consent was obtained after explaining the benefits, alternatives, and risks of the procedure including, but not limited to, bleeding, perforation, missed lesions, and ad verse reaction to anesthesia medications. Patient was transported to endoscopy procedure room. Patient was connected to monitoring devices. Throughout the procedure the patient's blood pressure, p ulse, and oxygen saturations were monitored continuously. Patient identification and planned procedure were verified by the staff. Patient was positioned in lateral decubitus position. Digital anorectal exam was performed. Variable stiffness Olympus colonoscope was inserted and advanced under direct visualization to the cecum. Adequacy of the colonic preparation was noted. The colonoscope was advanced a short distance into the terminal ileum. The colonoscope was then slowly withdrawn while carefully examining the color, texture, anatomy, and integrity of the mucosoa circumferentially. Within the rectum retroflexion was performed. Colonoscope was then withdrawn. There was noted to be some particulate liquid stool throughout the colon and this was mostly cleared with thorough trans colonoscopic irrigation and suctioning. She did have some stool coating the thomas of the cecum and ascending colon. Findings:: Mild diverticular disease between 25 and 30 cm from the anal verge Recommendations:: Recommend repeat colonoscopy 5 to 7 years as this is her initial screening colonoscopy and prep was somewhat suboptimal. Complications:: None immediately apparent Estimated blood obtained (mL): 0
[2022-07-08 14:23] VITALS: BP 131/73; PULSE 82; RESP 16; TEMP 36.6; O2SAT 100
[2022-07-08 14:33] VITALS: BP 140/77; PULSE 75; RESP 16; O2SAT 99
[2022-07-08 14:38] VITALS: BP 120/60; PULSE 80; RESP 17; O2SAT 100
[2022-07-08 14:53] VITALS: BP 121/63; PULSE 77; RESP 16; O2SAT 100
== END 2022-07-08 14:55 | disposition home or self-care (01) ==
PROVIDERS: PCP Family Medicine; Visit Provider Surgery
PROC: 0DJD8ZZ Inspection of Lower Intestinal Tract, Via Natural or Artificial Opening Endoscopic (ICD-10-PCS; CPT 45378; principal; 2022-07-08 12:30)
DX: K57.92 Diverticulitis of intestine, part unspecified, without perforation or abscess without bleeding (principal); Z79.899 Other long term (current) drug therapy
CPT/HCPCS: 45378

== ENCOUNTER 2022-12-02 15:05 | Emergency (ER) | payer BC, SELFPAY ==
--- NOTE | 2022-12-02 15:07 | EXP.UTC ---
Discharge Plan Disposition Patient Disposition: Home, Self-Care Condition: Good Prescriptions Prescriptions: New cyclobenzaprine 10 mg tablet 10 mg PO Q8H PRN (Reason: muscle spasm) Qty: 30 0RF No Action lisinopril-hydrochlorothiazide 20-12.5 mg tablet 1 tab PO DAILY Patient Comments: TAKE 1 TABLET BY MOUTH ONCE DAILY potassium chloride 10 mEq tablet extended release 10 meq PO DAILY Patient Comments: TAKE 1 TABLET BY MOUTH TWICE DAILY venlafaxine 37.5 mg tablet 37.5 mg PO DAILY Patient Comments: TAKE 1 TABLET BY MOUTH ONCE DAILY metoprolol succinate 25 mg tablet extended release 24 hr 25 mg PO DAILY Patient Comments: TAKE 1 TABLET BY MOUTH AT BEDTIME rosuvastatin 10 mg tablet 10 mg PO DAILY topiramate 50 mg tablet 50 mg PO DAILY Patient Comments: TAKE 1 TABLET BY MOUTH ONCE DAILY AT BEDTIME peg 3350-electrolytes [Golytely] 236-22.74-6.74 -5.86 gram recon soln 240 ml PO Q10M Rx Instructions: until fecal effluent is clear Referrals Follow up/Referrals: Anuj Brown MD [Primary Care Provider] - See instructions Clinical Impressions Clinical Impression: Muscle spasm Instructions Patient Instructions: DI for Muscle Spasm Discharge ED Provider: Cherrie Castellanos [facility] [place] HPI General Stated complaint: RT lower back and shoulder blade pain Time Seen by Provider: 12/02/22 15:35 History of Present Illness Provider Complaint: Pain under right shoulder blade for about a week. Pain in right low back X 2-3 days. Worse in am. Better after she moves around but still there. No known injury. Pain patch helped some but pain returned as soon as she took it off. Onset (ago): week(s) (1) Location: back Relieving factors: none Exacerbating factors: none Associated symptoms: denies other symptoms Treatments prior to arrival: none Related Data Home Medications Medication Instructions Recorded Confirmed lisinopril 20 1 tab PO DAILY . 05/16/22 07/08/22 mg-hydrochlorothiazide 12.5 mg tablet metoprolol succinate 25 mg 25 mg PO DAILY . 05/16/22 07/08/22 tablet,extended release 24 hr potassium chloride 10 mEq 10 meq PO DAILY . 05/16/22 07/08/22 tablet,extended release rosuvastatin 10 mg tablet 10 mg PO DAILY . 05/16/22 07/08/22 topiramate 50 mg tablet 50 mg PO DAILY . 05/16/22 07/08/22 venlafaxine 37.5 mg tablet 37.5 mg PO DAILY . 05/16/22 07/08/22 peg 3350-electrolytes 236 240 ml PO Q10M BOWEL PREP 07/08/22 07/08/22 gram-22.74 gram-6.74 gram-5.86 gram solution (Golytely) Previous Rx's Medication Instructions Recorded cyclobenzaprine 10 mg tablet 10 mg PO Q8H PRN muscle spasm #30 12/02/22 tabs Allergies Allergy/AdvReac Type Severity Reaction Status Date / Time No Known Allergies Allergy Verified 07/08/22 11:38 [facility] Disclaimer: The information contained in this section may have been updated after the patient was seen, as this information can be updated by other users. Medical History (Updated 12/02/22 @ 15:41 by REJI Mcfarlane) Hyperlipidemia Hypertension Hypertension Surgical History History of hysterectomy Family History (Updated 07/08/22 @ 11:41 by Mandi Macedo RN) No significant family history Social History (Updated 07/08/22 @ 12:29 by Sergio Lei CRNA) Smoking Status: Never smoker alcohol intake: never substance use type: denies use current occupational status: employed Travel in the last 8 weeks: None ROS Obtained: Yes All systems reviewed & no additional complaints except as documented Musculoskeletal Musculoskeletal: Reports as per HPI, Reports myalgias and Reports stiffness Physical Exam General General appearance: alert and in no apparent distress Head Head exam: atraumatic, normocephalic and normal inspection Eye Eye exam: Present normal appearance, PERRL and EOMI
[2022-12-02 15:30] VITALS: BP 141/66; PULSE 82; RESP 16; TEMP 36.8; O2SAT 98; BMI 29.9
[2022-12-02 15:44] VITALS: BP 141/66; PULSE 82; RESP 16; TEMP 36.8; O2SAT 98
== END 2022-12-02 15:46 | disposition home or self-care (01) ==
PROVIDERS: Emergency Provider Physician Assistant; PCP Family Medicine
DX: M54.6 Pain in thoracic spine (principal); M62.838 Other muscle spasm; E78.5 Hyperlipidemia, unspecified; I10 Essential (primary) hypertension
CPT/HCPCS: 99212; 99214; G0463

== ENCOUNTER → 2023-01-20 15:14 | Outpatient (CLI) | payer BC, SELFPAY ==
--- NOTE | 2023-01-20 15:21 | MM_ITS ---
PROCEDURE INFORMATION: Exam: MG Bilateral Screening 3D Mammography Exam date and time: 01/20/2023 3:15 PM Age: 57 years old Clinical indication: Screening examination TECHNIQUE: Imaging protocol: Bilateral Screening tomosynthesis and 2D mammography including computer-aided detection (CAD) when performed. COMPARISON: 1. MG MM DIG SCREENING MAMM BI W/CAD 01/18/2022 9:17 AM 2. MG DMSB DIG MAMM-SCREEN PAIGE 12/16/2013 2:32 PM FINDINGS: MAMMOGRAPHY: Breast composition: The breasts are almost entirely fatty. Mass: None. Architectural distortion: None. Calcifications: No suspicious calcifications. Asymmetric density: None. Skin thickening: None. Axillary adenopathy: None. IMPRESSION: No mammographic evidence of malignancy. Annual screening is recommended unless otherwise clinically indicated. ASSESSMENT: BI-RADS Category 1: Negative
== END ==
PROVIDERS: PCP Family Medicine; Visit Provider Family Medicine
DX: Z12.31 Encounter for screening mammogram for malignant neoplasm of breast (principal)
CPT/HCPCS: 77063; 77067

== ENCOUNTER 2023-12-06 21:49 | Emergency (ER) | payer BC, SELFPAY ==
[2023-12-06 21:51] VITALS: BP 158/77; PULSE 77; RESP 18; TEMP 37.1; O2SAT 98; BMI 32.2
--- NOTE | 2023-12-06 22:18 | ED_ITS ---
Discharge Plan Disposition Patient Disposition: Home, Self-Care Chief Complaint: Wound/Laceration Prescriptions Prescriptions: No Action meloxicam 15 mg tablet 15 mg PO DAILY Patient Comments: TAKE 1 TABLET BY MOUTH ONCE DAILY lisinopril-hydrochlorothiazide 20-12.5 mg tablet 1 tab PO DAILY Patient Comments: TAKE 1 TABLET BY MOUTH ONCE DAILY potassium chloride 10 mEq tablet extended release 10 meq PO DAILY Patient Comments: TAKE 1 TABLET BY MOUTH TWICE DAILY venlafaxine 37.5 mg tablet 37.5 mg PO DAILY Patient Comments: TAKE 1 TABLET BY MOUTH ONCE DAILY rosuvastatin 10 mg tablet 10 mg PO DAILY cyclobenzaprine 10 mg tablet 10 mg PO Q8H PRN (Reason: muscle spasm) Qty: 30 0RF Referrals Follow up/Referrals: Anuj Brown MD [Primary Care Provider] - See instructions Activity Restrictions/Add. Instructions Additional Instructions/Restrictions: Call your family doctor to establish care for this visit to the emergency department and schedule follow-up within 48 hours to ensure improvement. If you have any worsening of your condition or any other concerning signs or symptoms, return to the emergency department or your primary care doctor for further evaluation. Return to the emergency department triage area to have olga removed in 10 to 14 days. Just tell them you have olga that need removed, you do not need to check in as a patient. Clinical Impressions Clinical Impression: Laceration of scalp Instructions Patient Instructions: DI for Laceration Repair Print Language Print Language: Palestinian Discharge ED Provider: Devan Pabon General Adult HPI General Chief complaint: Wound/Laceration Stated complaint: AO 12-06-23 2100 fell and hit head Time Seen by Provider: 12/06/23 21:52 Mode of Arrival: Ambulatory Source of Information: Patient Limitations: No Limitations Description of Symptoms (Recalled from ER Triage Doc. by RN): 58 F presents from home with a laceration to her scalp after a mechanical fall in her bedroom approximately 1 hour ago. Patient denies LOC and does not take a daily blood thinner. NAD on arrival. GCS 15 History of Present Illness HPI narrative: Please note that above description of symptoms, in this electronic medical record under categorization of recalled from ER triage doctor by RN are reflective of an initial nursing assessment, however, is not reflective of my full history and physical exam that was personally taken and clarified. Consequentially, this preceding description of symptoms, which may include the patient's categorized chief complaint in the EMR, do not reflect my personal clinical impression, and the ultimate description of history of present illness and patient stated complaints should be deferred to this section of the note. Unless stated otherwise or congruent with this section of the note, additional signs, symptoms, or incongruence should be interpreted as inaccurate with my clinical impression. Related Data Home Medications ?Medication ?Instructions ?Recorded ?Confirmed lisinopril 20 1 tab PO DAILY . 05/16/22 04/13/23 mg-hydrochlorothiazide 12.5 mg tablet potassium chloride 10 mEq 10 meq PO DAILY . 05/16/22 04/13/23 tablet,extended release rosuvastatin 10 mg tablet 10 mg PO DAILY . 05/16/22 04/13/23 venlafaxine 37.5 mg tablet 37.5 mg PO DAILY . 05/16/22 04/13/23 meloxicam 15 mg tablet 15 mg PO DAILY 04/13/23 04/13/23 Previous Rx's ?Medication ?Instructions ?Recorded cyclobenzaprine 10 mg tablet 10 mg PO Q8H PRN muscle spasm #30 12/02/22 tabs Allergies Allergy/AdvReac Type Severity Reaction Status Date / Time No Known Allergies Allergy Verified 04/13/23 14:16 [facility] Disclaimer: The information contained in this section may have been updated after the patient was seen, as this information can be updated by other users. Medical History Hyperlipidemia Hypertension Hypertension Surgical History History of hysterectomy Family History (Updated 04/13/23 @ 14:25 by Ana Paula Crawford) Other Heart attack Hyperlipidemia Hypertension Social History Smoking Status: Never smoker alcohol intake: never substance use type: denies use current occupational status: employed Travel in the last 8 weeks: None ROS Obtained: Yes All systems reviewed & no additional complaints except as documented Physical Exam General General appearance: alert Head Head exam: normocephalic and other (4 cm laceration posterior scalp) Eye Eye exam: Present normal appearance, PERRL and EOMI Neck Neck exam: Present normal inspection, full ROM and trachea midline Respiratory Respiratory exam: Absent respiratory distress, wheezes, stridor, accessory muscle use or prolonged expiratory phase Cardiovascular Cardiovascular exam: Present other (Pulses equal symmetric in upper and lower extremities) Abdominal Exam Abdominal exam: Present soft; Absent distention, tenderness or pulsatile mass Extremities Exam Extremities exam: Absent edema Neurological Exam Neurological exam: Present alert, oriented X3 and CN II-XII intact; Absent motor sensory deficit Skin Skin exam: Present warm and dry; Absent diaphoresis or erythema Medical Decision Making Medical Records Medical records reviewed: Yes I reviewed the patient's medical records. Screening: Per USPSTF and CDC recommendations, given the prevalence of disease in our region, it is our hospital?s policy to screen for HIV and viral Hepatitis for all patients aged 18 and over and those with ongoing risk factors. [place] Inquiry Pt receiving controlled substance: No Woodrow was queried for this patient: No Vital Signs: 12/06/23 21:51 Temperature 98.7 F Temperature Source Oral Pulse Rate [Left] 77 Respiratory Rate 18 Blood Pressure [Right Arm] 158/77 H Blood Pressure Mean [Right Arm] 104 Blood Pressure Source [Right Arm] Automatic Cuff Blood Pressure Position [Right Arm] Sitting 02 Sat by Pulse Oximetry 98 Oxygen Delivery Method Room Air Orders (Tests/Meds): ED MEDICATIONS Discontinued Medications Generic Name Dose Route Start Last Admin Trade Name Freq PRN Reason Stop Dose Admin Lidocaine HCl 20 ml 12/06/23 22:02 Lidocaine 1% 20ml Mdv SQ 12/06/23 22:03 ONCE ONE Medical Decision Narrative: 58-year-old female no relevant medical history presenting with fall and head laceration. She tripped just before arrival, hit her head on a coffee table. Laceration and bleeding. Not lose consciousness. Lost her hair, came to the emergency department. Hemostatic on arrival. She does not take anticoagulatio n. Minimal pain. History obtained with patient. On arrival, well-appearing. She has a 4 cm laceration on her occipital scalp that does not gape. Does not violate muscular tissue. Incredibly low risk for tetanus given indoor, tetanus not deemed necessary at this time. Laceration was anesthetized with 1% lidocaine, closed with [address] [place] [address] head and [place] CT C-spine negative. Imaging considered, but not deemed necessary. Because patient at baseline without signs or symptoms of clinical decompensation, deemed appropriate for discharge. I discussed my clinical impression with patient[] and answered all questions. At this time, the evidence for any other entities in the differential is insufficient to warrant any further testing or ED observation. This was explained as well. Advisory was given that persistent or worsening symptoms require further evaluation. I confirmed the understanding of this discussion. Logistics Service Representative disclaimer Much of this encounter note is an electronic resource director spoken language to printed text. Electronic resource director of the spoken language may permit errors. Although I have reviewed the note, some errors may still exist. Procedures Laceration Laceration 1: Site: scalp Side (If applicable): left Size (cm): 4 Description: linear Depth: simple, single layer Local Anesthetic: lidocaine 1% Amount of anesthesia used (mL): 10 Pre-repair: wound explored and deep structures intact Skin layer closed with: other (Olga) Number of sutures: 5 Critical Care Critical Care Time Critical Care Time: No
[2023-12-06] MEDS: LIDOCAINE 1% 20ML MDV 20 ML SQ (22:22)
--- NOTE | 2023-12-06 22:23 | PC.NURSE ---
Lidacaine used by provider on patients lac on head
[2023-12-06 22:43] VITALS: BP 141/76; PULSE 67; RESP 16; TEMP 36.8; O2SAT 98
== END 2023-12-06 22:45 | disposition home or self-care (01) ==
PROVIDERS: Emergency Provider Emergency Medicine; PCP Family Medicine
DX: S01.01XA Laceration without foreign body of scalp, initial encounter (principal); W01.190A Fall on same level from slipping, tripping and stumbling with subsequent striking against furniture, initial encounter
CPT/HCPCS: 12002; 99283

== ENCOUNTER 2023-12-08 11:17 | Outpatient (CLI) | payer BC, SELFPAY ==
--- NOTE | 2023-12-08 11:25 | XR_ITS ---
FINAL REPORT CLINICAL HISTORY: fall, c/o low back pain COMPARISON: 09/15/2020 FINDINGS: LUMBOSACRAL SPINE SERIES Five views of the lumbosacral spine were obtained. There is no fracture present. There is no malalignment. There is moderate diffuse degenerative disc disease and facet arthropathy. IMPRESSION: Degenerative changes without acute process. Reviewed, Interpreted and Dictated by Anuj Van MD Transcribed by Pili Soares Authenticated and [facility]
--- NOTE | 2023-12-08 11:28 | XR_ITS ---
FINAL REPORT CLINICAL HISTORY: ACUTE MIDLINE LOW BACK PAIN WITHOUT SCIATICA FALL COMPARISON: None FINDINGS: SACRUM COCCYX 3 views demonstrate no acute fracture or dislocation. The sacral arches are intact. There are mild degenerative changes of the sacroiliac joints. No soft tissue abnormality is seen. IMPRESSION: Degenerative changes without acute process. Reviewed, Interpreted and Dictated by Anuj Van MD Transcribed by Pili Soares Authenticated and [facility]
== END 2023-12-08 23:59 | disposition home or self-care (01) ==
LOC: LAB 11:19 → RAD 11:20
PROVIDERS: PCP Physician Assistant; Visit Provider Physician Assistant
DX: M54.50 Low back pain, unspecified (principal)
CPT/HCPCS: 72110; 72220

== ENCOUNTER 2023-12-16 11:03 | Emergency (ER) | payer BC, SELFPAY ==
[2023-12-16 11:19] VITALS: BP 120/80; PULSE 80; RESP 20; O2SAT 100
[2023-12-16 11:23] VITALS: BP 120/80; PULSE 80; RESP 20; TEMP 36.6
== END 2023-12-16 11:23 | disposition home or self-care (01) ==
LOC: UTC 11:30
PROVIDERS: Emergency Provider Nurse Practitioner Family; PCP Physician Assistant
DX: Z48.02 Encounter for removal of sutures (principal)
CPT/HCPCS: 99211; G0381

== ENCOUNTER 2024-01-19 10:39 | Outpatient (CLI) | payer BC, SELFPAY ==
--- OUTSIDE RECORDS SUMMARY | 2024-01-19 10:44 | XMS_ITS ---
Author Organization [facility] Address [address] [facility] 36 [facility] [address] [place] [id number] Care Team Providers Care Assistant Project Engineer Name Role Phone Owen Brown Primary Care Provider [phone] Meg Evans Unavailable [phone] REASON FOR VISIT Message PROBLEMS Problem Type ICD Code Onset Dates Problem Status W/U Status Risk SNOMED Code Notes Problem Neck pain (M54.2) Active confirmed [id number] Encounters Encounter Location Date Provider Diagnosis [place] [facility] [address] [facility] [address] [place] [phone] 01/18/2024 Meg Evans Neck pain M54.2 and Pain, joint, shoulder, left M25.512 ASSESSMENTS Encounter Date Diagnosis Assessment Notes Treatment Notes Treatment Clinical Notes 01/18/2024 Neck pain (ICD-10 - M54.2) 01/18/2024 Pain, joint, shoulder, left (ICD-10 - M25.512) PLAN OF TREATMENT Pending Test Test Name Order Date X ray : Shoulder, left 01/18/2024 X ray : Spine, cervical A-P and Lateral 01/18/2024 Next Appt Details Provider Name:Meg devlin, 03/15/2024 01:15:00 PM, 12[address] [facility] 36 [facility], [address], [place], [phone],
--- OUTSIDE RECORDS SUMMARY | 2024-01-19 10:44 | XMS_ITS | Patient Health Record ---
Author Organization [facility] Address [address] [place] [id number] Care Team Providers Care Company Manager Name Role Phone Owen Brown Primary Care Provider Meg Evans Unavailable [phone] ALLERGIES No Known Allergies RESULTS Component Value Reference Range Notes P-Basic Metabolic Panel (BMP ) Reviewed date:01/11/2024 01:21:37 PM Interpretation:gluc 154, bun 23 Performing Lab: Notes/Report: Test performed by [facility], [facility] , [address], [place] [address] Geronimo Mcdonnell MD, Crew Chief CLIA: [id number] Sodium 142 135-145 mmol/L Potassium 3.6 3.5-5.3 mmol/L Chloride 104 97-108 mmol/L CO2 26 22-32 mmol/L Glucose 154 65-99 mg/dL BUN 23 6-20 mg/dL Creatinine 0.62 0.50-1.00 mg/dL Calcium 9.2 8.6-10.4 mg/dL eGFR by Creatinine 103 >59 mL/min/1.73m2 Glycohemoglobin A1c (in hous e) Reviewed date:01/09/2024 11:19:12 AM Interpretation:5.6 Performing Lab: Notes/Report: 5.6 glycohemoglobin 5.6% 5 - 6.5 % X ray : Spine, sacrum and co ccyx Reviewed date:12/14/2023 08:12:29 AM Interpretation:degenerative changes Performing Lab: Notes/Report: degenerative changes X ray : Spine, lumbar Reviewed date:12/14/2023 08:12:37 AM Interpretation: Performing Lab: Notes/Report: P-Basic Metabolic Panel (BMP ) Reviewed date:09/22/2023 10:51:59 AM Interpretation:gluc 132, bun 27 Performing Lab: Notes/Report: Test performed by [facility] [address] [place] [address] , [address], [place] [address] Geronimo Mcdonnell MD, Crew Chief CLIA: [id number] Sodium 143 135-145 mmol/L Potassium 4.3 3.5-5.3 mmol/L Chloride 106 97-108 mmol/L CO2 24 22-32 mmol/L Glucose 132 65-99 mg/dL BUN 27 6-20 mg/dL Creatinine 0.70 0.50-1.00 mg/dL Calcium 9.8 8.6-10.4 mg/dL eGFR by Creatinine 101 >59 mL/min/1.73m2 Glycohemoglobin A1c (in hous e) Reviewed date:09/22/2023 10:51:59 AM Interpretation:5.5 Performing Lab: Notes/Report: 5.5 glycohemoglobin 5.5% 5 - 6.5 % P-Vitamin D 25-Hydroxy Reviewed date:03/27/2023 10:57:18 PM Interpretation:Normal Performing Lab: Notes/Report: Test performed by [facility] [address] [place] [address] , [address], [place] [address] Geronimo Mcdonnell MD, Crew Chief CLIA: [id number] Vitamin D 25-Hydroxy 35.7 30.0-100.0 ng/mL Interpretation of Vitamin D 25 OH: < 20 ng/mL - Deficiency 20 - 29 ng/mL - Insufficiency 30 - 100 ng/mL - Sufficiency > 100 ng/mL - Super-therapeutic- toxicity may occur above this level. Clinical correlation required. P-TSH reflex to FT4 Reviewed date:03/27/2023 10:57:18 PM Interpretation:Normal Performing Lab: Notes/Report: Test performed by [facility] [address] [place] [address] , [address], [place] [address] Geronimo Mcdonnell MD, Crew Chief CLIA: [id number] TSH reflex to FT4 1.70 0.43-5.25 mU/L P-Comprehensive Metabolic Pa bairon (CMP) Reviewed date:03/27/2023 10:57:18 PM Interpretation:Glu 110, Bun 24 Performing Lab: Notes/Report: Test performed by [facility] [address] [place] [address] , [address], [place] [address] Geronimo Mcdonnell MD, Crew Chief CLIA: [id number] Sodium 141 135-145 mEq/L Potassium 4.6 3.5-5.3 mEq/L Chloride 105 97-108 mEq/L CO2 26 22-32 mEq/L Glucose 110 65-99 mg/dL BUN 24 6-20 mg/dL Creatinine 0.82 0.50-1.00 mg/dL Calcium 9.8 8.6-10.4 mg/dL eGFR by Creatinine 83 >59 mL/min/1.73m2 Protein 7.0 6.0-8.3 g/dL Albumin 5.0 3.5-5.3 g/dL Alkaline Phosphatase 94 35-121 IU/L ALT (SGPT) 23 <5-47 IU/L AST (SGOT) 22 <5-40 IU/L Bilirubin, Total 0.2 <0.2-1.2 mg/dL A/G Ratio 2.5 1.1-2.5 mg/dL P-Vitamin B12 Reviewed date:03/27/2023 10:57:18 PM Interpretation:Normal Performing Lab: Notes/Report: Test performed by [facility] [address] [place] [address] , [address], [place] [address] Geronimo Mcdonnell MD, Crew Chief CLIA: [id number] Vitamin B12 834 805-3756 pg/mL CBC Venipuncture (in house) Reviewed date:03/24/2023 05:06:26 PM Interpretation: Performing Lab: Notes/Report: wbc 9.5 3.5 - 10 lymph 27.9 15 - 50 mid 5.3 2 - 15 gran 66.8 35 - 80 rbc 4.74 3.5 - 5.5 hgb 14.0 11.5 - 16.5 hct 40.2 35 - 55 mcv 84.8 75 - 100 mch 29.6 25 - 35 mchc 34.9 31 - 38 platlet 305 100 - 400 Mammogram Reviewed date:02/01/2023 01:21:36 PM Interpretation:Negative annual f/u Performing Lab: Notes/Report: Negative annual f/u result REASON FOR REFERRAL Diagnosis 1 Headache, chronic da tamela (R51.9) Referral Organization [facility] Referring Provider First Name Meg Referring Provider Last Name Cristina Referring Provider Speciality Physician Marketing Designer Referred Provider Neurology, . Referred Provider Specialty Neurology General Notes Meg Evans 03/24 2:12:47 PM > PT needs an appt with Deven Bonilla Melissa 03/27/2023 10:07:19 AM > faxed referral, they will contact pt Referral Priority Routine MEDICATIONS Medication SIG (Take, Route, Frequency, Duration) Notes Start Date End Date Status Meloxicam 15 MG Take 1 tablet by mouth once daily for 90 Active Rosuvastatin Calcium 10 MG 1 tab(s) oral ly once a day for 90 days Active Topiramate 50 MG TAKE 1 TABLET BY MOUTH AT BEDTIME for 90 days Not-Taking Cyclobenzaprine HCl 5 MG 1 tablet at bed time as needed Orally Once a day 01/04/2024 Active Potassium Chloride ER 10 MEQ Take 1 tablet by mouth twice daily for 90 Active Nurtec 75 MG ALLOW 1 TABLET TO DISSOLVE ON THE TONGUE ONCE DAILY for 30 Active Lisinopril-hydroCHLOROthiaz dann 20-25 MG 1 tablet Orally Once a day for 90 days Active Venlafaxine HCl 37.5 MG Take 1 tablet by mouth once daily for 90 Active IMMUNIZATIONS Vaccine Route Administration Date Status Comme nts COVID 19 Moderna Unknown 09/22/2021 Administered COVID 19 Pfizer Unknown 05/25/2020 Administered COVID 19 Pfizer Unknown 06/22/2020 Administered COVID 19 Pfizer Unknown 11/18/2020 Administered Flublok Unknown 11/11/2020 Administered Fluzone PF Quad (6-35 months) Unknown 12/07/2015 Admini stered Fluzone PF Quad (6-35 months) Unknown 11/30/2016 Admini stered Fluzone PF Quad (6-35 months) Unknown 11/23/2019 Admini stered Hepatitis A (adult) Unknown 02/27/2018 Administered Shingrix Unknown 09/17/2022 Administered SOCIAL HISTORY Sex Assigned At : Social History Observation Description Sex Assigned At Unknown PROBLEMS Problem Type ICD Code Onset Dates Problem Status W/U Status Risk SNOMED Code Notes Problem Diverticulitis (K57.92) Active confirmed 288007594 Problem Migraine without aur a and without status migrainosus, not intractable (G43.009) Active confirmed 237534893 Problem Neck pain (M54.2) Active confirmed 8168 0005 Problem New daily persistent headache (G44.52) Active confirmed 763393561402446 Problem Seasonal allergic rhinitis due to pollen (J30.1) Active confirmed 37475999 Problem Pure hypercholesterolemia (E78.00) Active confirmed 962828825 Problem Hot flashes due to menopause (N95.1) Active confirmed 734519265 Problem Primary hypertension (I10) Active confirmed 24020787 Problem Screening mammogram for breast cancer (Z12.31) Active confirmed 416216856 Problem 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) Active confirmed 114675519909550 VITAL SIGNS Heart Rate 79 /min 01/04/2024 Blood pressure diastolic 68 mm Hg 01/04/2024 Height 62 in 01/04/2024 Blood pressure systolic 126 mm Hg 01/04/2024 Weight 167.4 lbs 01/04/2024 BMI 30.61 kg/m2 01/04/2024 Encounters Encounter Location Date Provider Diagnosis [facility] [address] [place], [place] [id number] 01/30/2023 Owen Brown [facility] [address] [place], [place] [id number] 03/27/2023 Meg Burgosdy [facility] [address] [place] [id number] 05/08/2023 Meg Aubreydy [facility] [address] [place] [id number] 09/15/2023 Meg Aubreydy [facility] [address] [place] [id number] 09/18/2023 Owen Brown [facility] [address] [place] [id number] 09/19/2023 Meg Evans [facility] [address] [place] [id number] 09/22/2023 Meg Cristina [facility] [address] [place] [id number] 12/01/2023 Owen Brown [facility] [address] [place], [place] [id number] 12/14/2023 Meg Crowdy [facility] [address] [place] [id number] 12/15/2023 Meg Crowdy [facility] [address] [place] [id number] 01/09/2024 Owen Brown [facility] [address] [place] [id number] 01/11/2024 Meg Crowdy [facility] [address] [place] [id number] 01/18/2024 Meg Crowdy Neck pain M54.2 and Pain, joint, shoulder, left M25.512 [facility] [address] [place], [place] [id number] 01/01/2024 Owen Brown [facility] [address] [place], [place] [id number] 01/04/2024 Meg Crowdy Neck muscle spasm M6 2.838 ; Pure hypercholesterolemia E78.00 ; Impaired fasting glucose R73.01 ; Elevated BUN R79.9 and Screening mammogram, encounter for Z12.31 [facility] [address] [place] [id number] 12/15/2023 Meg Crowdy [facility] [address] [place], [place] [id number] 12/08/2023 Meg Crowdy Laceration of scalp without foreign body, subsequent encounter S01.01XD and Acute midline low back pain without sciatica M54.50 [facility] [address] [place], [place] [id number] 11/10/2023 Meg Crowdy Neck muscle spasm M6 2.838 and Frequent headaches R51.9 [facility] [address] [place], [place] [id number] 08/25/2023 Meg Crowdy Lower extremity elizabeth a R60.0 [facility] [address] [place], [place] [id number] 09/15/2023 Meg Evans Routine physical examination Z00.00 ; Primary hypertension I10 ; Pure hypercholesterolemia E78.00 ; Lower extremity edema R60.0 and Elevated glucose R73.09 [facility] [address] [facility] [address] [facility] [address] [place] [id number] 03/24/2023 Meg Evans Headache, chronic da tamela R51.9 ; Primary hypertension I10 and Neck muscle spasm M62.838 ASSESSMENTS Encounter Date Diagnosis Assessment Notes Treatment Notes Treatment Clinical Notes 01/04/2024 Neck muscle spasm (I CD-10 - M62.838) 01/04/2024 Pure hypercholestero lemia (ICD-10 - E78.00) Lipids were normal at her work, see patient docs. 01/18/2024 Neck pain (ICD-10 - M54.2) 01/18/2024 Pain, joint, shoulde r, left (ICD-10 - M25.512) 12/08/2023 Laceration of scalp without foreign body, subsequent encounter (ICD-10 - S01.01XD) Will return for staple removal. 12/08/2023 Acute midline low ba ck pain without sciatica (ICD-10 - M54.50) 11/10/2023 Neck muscle spasm (I CD-10 - M62.838) 11/10/2023 Frequent headaches ( ICD-10 - R51.9) Headaches are likely caused by her neck muscle spasm. Gave exercises to do at home and will apply voltaren and get a neck massager. If this does not help, will get imaging and start PT. 09/15/2023 Routine physical examination (ICD-10 - Z00.00) Healthy female, continue routine care. She is going to call her insurance to see if they cover any weight loss medications. 09/15/2023 Primary hypertension (ICD-10 - I10) BP is better and swelling has resolved. 08/25/2023 Lower extremity elizabeth a (ICD-10 - R60.0) 03/24/2023 Primary hypertension (ICD-10 - I10) 03/24/2023 Headache, chronic da tamela (ICD-10 - R51.9) Headaches do not appear to be migraines. They happen daily and feel like a band around her head. She has no light or sound sensitivity. The nurtec and topamax have not helped. She was previously on a beta jamil and it did not help either. She gets relief from excedrine migraine. Will check labs and make neurology referral. She can start taking the meloxicam daily to see if this does help with the neck pain, which may, in turn, help the headaches. 09/15/2023 Pure hypercholestero lemia (ICD-10 - E78.00) 03/24/2023 Neck muscle spasm (I CD-10 - M62.838) Will start the meloxicam daily for the next week. Will check labs. If all normal, can try some muscle relaxants. Also discussed heat and massage for the neck. 01/04/2024 Impaired fasting glu cose (ICD-10 - R73.01) 09/15/2023 Lower extremity elizabeth a (ICD-10 - R60.0) 01/04/2024 Elevated BUN (ICD-10 - R79.9) 01/04/2024 Screening mammogram, encounter for (ICD-10 - Z12.31) 09/15/2023 Elevated glucose (IC D-10 - R73.09) PLAN OF TREATMENT Pending Test Test Name Order Date X ray : Shoulder, left 01/18/2024 Mammogram 01/04/2024 X ray : Spine, cervical A-P and Lateral 01/18/2024 Next Appt Details Provider Name:Meg Bautista Ze devlin, 03/15/2024 01:15:00 PM, [address], [address], [place], [place], [id number], Insurance Providers Payer Name Payer Address Payer Phone Subscriber Number Group Number Insured Name Patient Relationship to Insured Coverage Start Date Coverage End Date [employer] [address] [place] [address] [phone] [id number] Danny EFRAÍN NAIF Self - patient is the insured MEDICAL (GENERAL) HISTORY Medical History History ICD Code Blepharitis Surgical History Surgery Date(Month/Year) partial hysterectomy 2001 Hospitalization History Reason Date(Month/Year) [facility]rec [place] [place] [facility] [place] 09/06/2020
--- OUTSIDE RECORDS SUMMARY | 2024-01-19 10:44 | XMS_ITS ---
Author Organization [facility] Address [address] [facility] [address] [facility] [address] [place] [id number] Care Team Providers Care Cattle Feeder Name Role Phone Owen Brown Primary Care Provider Meg Evans [phone] REASON FOR VISIT Test results Encounters Encounter Location Date Provider Diagnosis [facility] [address] [facility] [address] [facility] [address] [place] [id number] 01/11/2024 Meg Evans PLAN OF TREATMENT Next Appt Details Provider Name:Meg devlin, 03/15/2024 01:15:00 PM, [address] [facility] [address] [facility], [address], [place], [phone],
--- OUTSIDE RECORDS SUMMARY | 2024-01-19 10:44 | XMS_ITS ---
Author Organization [facility] Address [address] [place] [phone] Care Team Providers Care Mash Tub Cooker Name Role Phone Owen Brown Primary Care Provider REASON FOR VISIT refills MEDICATIONS Medication SIG (Take, Route, Frequency, Duration) Notes Start Date End Date Status Nurtec 75 MG ALLOW 1 TABLET TO DI SSOLVE ON THE TONGUE ONCE DAILY for 30 Active Encounters Encounter Location Date Provider Diagnosis [facility] [address] [place] [id number] 01/09/2024 Owen Brown PLAN OF TREATMENT Medication Medication Name Sig Start Date Stop Date Notes Nurtec 75 MG ALLOW 1 TABLET TO DI SSOLVE ON THE TONGUE ONCE DAILY for 30 Next Appt Details Provider Name:Meg devlin, 03/15/2024 01:15:00 PM, [address] [facility] [address] [facility], [address], [place], [place], [phone],
--- NOTE | 2024-01-19 10:48 | XR_ITS ---
FINAL REPORT CLINICAL HISTORY: PAIN COMPARISON: None FINDINGS: LEFT SHOULDER: 3 views of the left shoulder were obtained. There is no acute fracture or dislocation. Mild acromioclavicular degenerative change is present. There is calcification adjacent to the humeral head, consistent with calcific tendinitis. IMPRESSION: Calcification adjacent to the humeral head, consistent with calcific tendinitis. Mild acromioclavicular degenerative change without acute bony abnormality. Reviewed, Interpreted and Dictated by Aguilar Chau III, MD Transcribed by Soraida Castro Authenticated and . [facility]
--- NOTE | 2024-01-19 10:48 | XR_ITS ---
FINAL REPORT CLINICAL HISTORY: neck pain COMPARISON: None FINDINGS: CERVICAL SPINE: AP and lateral views of the cervical spine were obtained. There is no prior exam for comparison. There is no acute fracture or malalignment. Vertebral body height is preserved. Mild and moderate degenerative change of the mid and lower cervical spine is present. The precervical soft tissues are normal. IMPRESSION: Mild and moderate degenerative change of the mid and lower cervical spine, without acute bony abnormality. Reviewed, Interpreted and Dictated by Aguilar Chau III, MD Transcribed by Soraida Castro Authenticated and [facility]
== END 2024-01-19 23:59 | disposition home or self-care (01) ==
LOC: RAD 10:42
PROVIDERS: PCP Physician Assistant; Visit Provider Physician Assistant
DX: M25.512 Pain in left shoulder (principal); M54.2 Cervicalgia
CPT/HCPCS: 72040; 73030

== ENCOUNTER 2024-01-22 15:42 | Outpatient (CLI) | payer BC, SELFPAY ==
--- NOTE | 2024-01-22 15:44 | MM_ITS ---
PROCEDURE INFORMATION: Exam: MG Bilateral Screening 3D Mammography Exam date and time: 01/22/2024 3:46 PM Age: 58 years old Clinical indication: Screening examination TECHNIQUE: Imaging protocol: Bilateral Screening tomosynthesis and 2D mammography including computer-aided detection (CAD) when performed. COMPARISON: No relevant prior studies available. FINDINGS: MAMMOGRAPHY: Breast composition: The breasts are almost entirely fatty. Mass: None. Architectural distortion: None. Calcifications: No suspicious calcifications. Asymmetric density: None. Skin thickening: None. Axillary adenopathy: None. IMPRESSION: No mammographic evidence of malignancy. Annual screening is recommended unless otherwise clinically indicated. ASSESSMENT: BI-RADS Category 1: Negative.
== END 2024-01-22 23:59 | disposition home or self-care (01) ==
LOC: RAD 15:43
PROVIDERS: PCP Physician Assistant; Visit Provider Physician Assistant
DX: Z12.31 Encounter for screening mammogram for malignant neoplasm of breast (principal)
CPT/HCPCS: 77063; 77067

== ENCOUNTER 2024-01-23 16:55 | Emergency (ER) | payer BC, SELFPAY ==
[2024-01-23 17:55] VITALS: BP 124/85; PULSE 68; RESP 18; TEMP 36.6; O2SAT 98; BMI 31.6
--- NOTE | 2024-01-23 18:02 | EXP.UTC ---
Discharge Plan Disposition Patient Disposition: Still a Patient Condition: Fair Prescriptions Prescriptions: No Action lisinopril-hydrochlorothiazide 20-12.5 mg tablet 1 tab PO DAILY Patient Comments: TAKE 1 TABLET BY MOUTH ONCE DAILY potassium chloride 10 mEq tablet extended release 10 meq PO DAILY Patient Comments: TAKE 1 TABLET BY MOUTH TWICE DAILY venlafaxine 37.5 mg tablet 37.5 mg PO DAILY Patient Comments: TAKE 1 TABLET BY MOUTH ONCE DAILY rosuvastatin 10 mg tablet 10 mg PO DAILY Referrals Follow up/Referrals: Meg Evans PA [Primary Care Provider] - See instructions Clinical Impressions Clinical Impression: Abdominal pain Print Language Print Language: Iraqi Discharge ED Provider: Anel Head [facility] HPI General Stated complaint: RT side abd pain,back pain Mode of Arrival: Ambulatory Source of Information: Patient Time Seen by Provider: 01/23/24 18:02 Description of Symptoms (Recalled from Triage Doc. by RN): PAIN ON RIGHT SIDE AND INTO BACK, STATES CAN NOT VOID, NO PEE SINCE BEFORE 1400 TODAY HEENT Symptoms (Recalled from RN notes): No Resp Symptoms (Recalled from RN notes): No Skin Symptoms (Recalled from RN notes): No MS Symptoms (Recalled from RN notes): No Functional Status (Recalled from RN notes): WNL History of Present Illness Provider Complaint: She states that since around 2:30 pm today she has had right lower back, right flank, and right sided abdominal pain. She states that she has a history of kidney stones and she feels like that is what she is having right now. She has had nausea but no vomiting, diarrhea or constipation. She states that she has not been able to void since before her pain started. Related Data Home Medications ?Medication ?Instructions ?Recorded ?Confirmed lisinopril 20 1 tab PO DAILY . 05/16/22 01/23/24 mg-hydrochlorothiazide 12.5 mg tablet potassium chloride 10 mEq 10 meq PO DAILY . 05/16/22 01/23/24 tablet,extended release rosuvastatin 10 mg tablet 10 mg PO DAILY . 05/16/22 01/23/24 venlafaxine 37.5 mg tablet 37.5 mg PO DAILY . 05/16/22 01/23/24 Allergies Allergy/AdvReac Type Severity Reaction Status Date / Time No Known Allergies Allergy Verified 04/13/23 14:16 Worker's Comp Is this a Worker's Comp case?: No PFSH PFSH Disclaimer: The information contained in this section may have been updated after the patient was seen, as this information can be updated by other users. Medical History Hyperlipidemia Hypertension Hypertension Surgical History History of hysterectomy Family History (Updated 04/13/23 @ 14:25 by Ana Paula Crawford) Other Heart attack Hyperlipidemia Hypertension Social History Smoking Status: Never smoker alcohol intake: never substance use type: denies use current occupational status: employed Travel in the last 8 weeks: None ROS Obtained: Yes All systems reviewed & no additional complaints except as documented Constitutional Constitutional: Denies chills, Denies fever(s) and Reports poor appetite ENT Ears, Nose, Mouth, and Throat: Denies dizziness and Denies sore throat Cardiovascular Cardiovascular: Denies dyspnea Respiratory Respiratory: Denies chest congestion, Denies cough and Denies dyspnea Gastrointestinal Gastrointestingal: Reports as per HPI and abdominal pain Genitourinary Female Genitourinary: Reports as per HPI, Denies difficulty voiding, Denies hematuria, Denies urinary frequency, Denies urinary incontinence, Denies urinary hesitancy and Denies urinary urgency Musculoskeletal Musculoskeletal: Denies arthralgias Integumentary/Breasts Skin/Breast: Denies rash Neurologic Neurologic: Denies dizziness Physical Exam General General appearance: alert and in no apparent distress Head Head exam: atraumatic, normocephalic and normal inspection Eye Eye exam: Present normal appearance, PERRL and EOMI ENT ENT exam: Present normal exam, normal oropharynx, mucous membranes moist, TM's normal bilaterally and normal external ear exam Neck Neck exam: Present normal inspection, full ROM and trachea midline; Absent meningismus or lymphadenopathy Chest Chest inspection: Present normal inspection and symmetric chest wall rise; Absent tenderness Respiratory Respiratory exam: Present normal lung sounds bilaterally; Absent respiratory distress Cardiovascular Cardiovascular exam: Present regular rate and normal rhythm; Absent JVD Abdominal Exam Abdominal exam: Present soft and normal bowel sounds; Absent distention, tenderness or guarding Extremities Exam Extremities exam: Present normal inspection, full ROM and normal capillary refill; Absent calf tenderness Back Exam Back exam: Present normal inspection; Absent tenderness Neurological Exam Neurological exam: Present alert and oriented X3 Psychiatric Psychiatric exam: Present normal affect and normal mood Skin Skin exam: Present warm, dry, intact and normal color Lymphatic Lymphatic Findings: no adenopathy Medical Decision Making Medical Records Medical records reviewed: No I reviewed the patient's medical records. Screening: Per USPSTF and CDC recommendations, given the prevalence of disease in our region, it is our hospital?s policy to screen for HIV and viral Hepatitis for all patients aged 18 and over and those with ongoing risk factors. [place] Inquiry Pt receiving controlled substance: No Vital Signs: 01/23/24 17:55 Temperature 97.8 F Temperature Source Oral Pulse Rate [Left Radial] 68 Respiratory Rate 18 Blood Pressure [Left Arm] 124/85 Blood Pressure Mean [Left Arm] 98 02 Sat by Pulse Oximetry 98 Medical Decision Narrative: She was transferred to the er due to her abdominal pain.
--- NOTE | 2024-01-23 19:14 | ED_ITS ---
<Statement entered by Anel Head DO - 01/24/24 00:27> I was consulted by the KAITLYNN, and we discussed the complexity of the problems being addressed. I approved the treatment and management plan for this patient's care in the emergency department, thus performing a substantive portion of the medical decision making. Anel Head DO Discharge Plan Disposition Patient Disposition: Home, Self-Care Condition: Good Prescriptions Prescriptions: New sulfamethoxazole-trimethoprim [Bactrim DS] 800-160 mg tablet 1 tab PO BID 5 Days Qty: 10 0RF tamsulosin 0.4 mg capsule 0.4 mg PO HS Qty: 7 0RF ketorolac 10 mg tablet 10 mg PO Q8H PRN (Reason: pain) 3 Days Qty: 14 0RF oxycodone 5 mg tablet 5 mg PO Q8H PRN (Reason: pain) Qty: 12 0RF No Action lisinopril-hydrochlorothiazide 20-12.5 mg tablet 1 tab PO DAILY Patient Comments: TAKE 1 TABLET BY MOUTH ONCE DAILY potassium chloride 10 mEq tablet extended release 10 meq PO DAILY Patient Comments: TAKE 1 TABLET BY MOUTH TWICE DAILY venlafaxine 37.5 mg tablet 37.5 mg PO DAILY Patient Comments: TAKE 1 TABLET BY MOUTH ONCE DAILY rosuvastatin 10 mg tablet 10 mg PO DAILY Referrals Follow up/Referrals: Meg Evans PA [Primary Care Provider] - See instructions Darryl Don MD [Referring] - See instructions Activity Restrictions/Add. Instructions Additional Instructions/Restrictions: Please take your antibiotic until it is gone. Please call in the morning to establish follow-up with urology. Please strain all your urine with urine strainer that I gave you. Return to the ER for any worsening fever pain intractable nausea vomiting. Clinical Impressions Clinical Impression: Ureterolithiasis Urinary tract infectious disease Qualifiers: Urinary tract infection type: site unspecified Hematuria presence: with hematuria Qualified Code(s): N39.0 - Urinary tract infection, site not specified Instructions Patient Instructions: DI for Kidney Stones Print Language Print Language: Upper Sorbian Discharge ED Provider: Anel Head General Adult HPI <REJI Diaz - Last Filed: 01/23/24 23:08> General Chief complaint: Abdominal Pain Stated complaint: RT side abd pain,back pain Time Seen by Provider: 01/23/24 18:02 Mode of Arrival: Ambulatory Source of Information: Patient Description of Symptoms (Recalled from ER Triage Doc. by RN): PAIN ON RIGHT SIDE AND INTO BACK, STATES CAN NOT VOID, NO PEE SINCE BEFORE 1400 TODAY History of Present Illness HPI narrative: Patient presents for evaluation of right flank pain. Patient reports that she had acute onset of right flank pain this afternoon. It has not abated. She does have a previous history of stones but does not currently have a urologist. She denies fever chills hemoptysis hematochezia melena hematemesis hematuria dysuria she reports some nausea but no vomiting or diarrhea. Related Data Home Medications ?Medication ?Instructions ?Recorded ?Confirmed lisinopril 20 1 tab PO DAILY . 05/16/22 01/23/24 mg-hydrochlorothiazide 12.5 mg tablet potassium chloride 10 mEq 10 meq PO DAILY . 05/16/22 01/23/24 tablet,extended release rosuvastatin 10 mg tablet 10 mg PO DAILY . 05/16/22 01/23/24 venlafaxine 37.5 mg tablet 37.5 mg PO DAILY . 05/16/22 01/23/24 Previous Rx's ?Medication ?Instructions ?Recorded ketorolac 10 mg tablet 10 mg PO Q8H PRN pain 3 days #14 01/23/24 tabs oxycodone 5 mg tablet 5 mg PO Q8H PRN pain #12 tabs 01/23/24 sulfamethoxazole 800 1 tab PO BID 5 days #10 tabs 01/23/24 mg-trimethoprim 160 mg tablet (Bactrim DS) tamsulosin 0.4 mg capsule 0.4 mg PO HS #7 caps 01/23/24 Allergies Allergy/AdvReac Type Severity Reaction Status Date / Time No Known Allergies Allergy Verified 04/13/23 14:16 [facility] <REJI Diaz - Last Filed: 01/23/24 23:08> [facility] Disclaimer: The information contained in this section may have been updated after the patient was seen, as this information can be updated by other users. Medical History Hyperlipidemia Hypertension Hypertension Surgical History History of hysterectomy Family History (Updated 04/13/23 @ 14:25 by Ana Paula Crawford) Other Heart attack Hyperlipidemia Hypertension Social History Smoking Status: Never smoker alcohol intake: never substance use type: denies use current occupational status: employed Travel in the last 8 weeks: None Other Medical History Have you received the Pneumonia Vaccine: No <REJI Diaz - Last Filed: 01/23/24 23:08> ROS Obtained: Yes Systems reviewed as appropriate & no additional complaints except as documented Physical Exam <REJI Diaz - Last Filed: 01/23/24 23:08> General General appearance: alert and in no apparent distress Respiratory Respiratory exam: Present normal lung sounds bilaterally Cardiovascular Cardiovascular exam: Present regular rate Neurological Exam Neurological exam: Present alert and oriented X3 Medical Decision Making <REJI Diaz - Last Filed: 01/23/24 23:08> Medical Records Medical records reviewed: Yes I reviewed the patient's medical records. Screening: Per USPSTF and CDC recommendations, given the prevalence of disease in our region, it is our hospital?s policy to screen for HIV and viral Hepatitis for all patients aged 18 and over and those with ongoing risk factors. [place] Inquiry Pt receiving controlled substance: No Vital Signs: 01/23/24 17:55 01/23/24 19:21 01/23/24 21:26 Temperature 97.8 F 98.1 F 98.2 F Temperature Source Oral Oral Pulse Rate 78 Pulse Rate [Left Radial] 68 83 Respiratory Rate 18 18 20 Blood Pressure 136/73 Blood Pressure [Left Arm] 124/85 143/78 H Blood Pressure Mean [Left Arm] 98 99 02 Sat by Pulse Oximetry 98 100 Oxygen Delivery Method Room Air Room Air Lab Data Lab results reviewed: Yes I reviewed the patient's lab results. Lab Results 01/23/24 19:39: WBC 17.6 H, RBC 4.53, Hgb 13.3, Hct 38.0, MCV 83.9, MCH 29.3, MCHC 35.0, RDW 13.9, Plt Count 325, MPV 8.7, Neut % (Auto) 86.6 H, Lymph % (Auto) 9.3 L, [place] % (Auto) 3.3, Eos % (Auto) 0.3, Baso % (Auto) 0.5, Neut # (Auto) 15.2 H, Lymph # (Auto) 1.6, [place] # (Auto) 0.6, Eos # (Auto) 0.1, Baso # (Auto) 0.1, Total Counted 100, Neutrophils % (Manual) 84 H, Band Neutrophils % 3.0, Lymphocytes % (Manual) 10, Monocytes % (Manual) 3, Platelet Estimate Normal, Anisocytosis 1+, Microcytosis 1+, Macrocytosis 1+, Ovalocytes 1+, Sodium 136, Potassium 4.1, Chloride 101, Carbon Dioxide 25, Anion Gap 14.1, BUN 25 H, Creatinine 0.70, Estimated Creat Clear 103, Estimated GFR 86, Est GFR ( Amer) 104, Glucose 116 H, Calcium 9.5, Total Bilirubin 0.5, AST 36, ALT 30, Alkaline Phosphatase 63, Total Protein 7.2, Albumin 5.0, Globulin 2.2, A lbumin/Globulin Ratio 2.3 H, Lipase 83, HIV 1&2 Antibody Rapid Nonreactive 01/23/24 19:47: Urine Color Yellow, Urine Appearance Clear, Urine pH 6.0, Ur Specific [place] >= 1.030, Urine Protein Negative, Urine Glucose (UA) Negative, Urine Ketones 2+, Urine Blood 3+ A, Urine Nitrate Negative, Urine Bilirubin Negative, Urine Urobilinogen 0.2, Ur Leukocyte Esterase Negative, Urine RBC Tntc, Urine WBC 3-5, Ur Squamous Epith Cells 20-50, Urine Bacteria 3+ 01/23/24 19:39 01/23/24 19:39 Orders (Tests/Meds): ED MEDICATIONS Discontinued Medications Generic Name Dose Route Start Last Admin Trade Name Sammyq PRN Reason Stop Dose Admin Acetaminophen 1,000 mg 01/23/24 19:41 01/23/24 19:44 Acetaminophen 500mg Tab PO 01/23/24 19:42 1,000 mg ONCE ONE Administration Sodium Chloride 1,000 mls @ 250 mls/hr 01/23/24 18:15 Sod Chlor 0.9% 1000ml Bag IV 02/22/24 18:14 .Q4H ESTEBAN Iopamidol 75 ml 01/23/24 20:14 01/23/24 20:15 Iopamidol-370 (76%);100ml Bottle IV 01/23/24 20:15 75 ml ONCE ONE Administration Ketorolac Tromethamine 15 mg 01/23/24 19:41 01/23/24 19:44 Ketorolac 30mg/Ml Vial IV 01/23/24 19:42 15 mg ONCE ONE Administration Sodium Chloride 10 ml 01/23/24 20:14 01/23/24 20:15 Sodium Chloride 0.9% 10ml Syr (Rad Only) IV 02/22/24 20:13 10 ml NEEDED PRN Administration Maintain IV Site Tamsulosin HCl 0.4 mg 01/23/24 21:15 01/23/24 21:20 Tamsulosin 0.4mg Capsule PO 01/23/24 21:16 0.4 mg ONCE ONE Administration Trimethoprim/Sulfamethoxazole 1 each 01/23/24 21:14 01/23/24 21:20 Sulfa/Trimethoprim 1 Tablet PO 01/23/24 21:15 1 each ONCE ONE Administration ORDERS Category Date Time Status CT abdomen pelvis w con Stat Cat Scan 01/23/24 19:21 Completed Complete Blood Count Auto Diff Stat Lab 01/23/24 19:39 Completed Comprehensive Metabolic Panel Stat Lab 01/23/24 19:39 Completed HIV (1&2) Antibody Rapid Stat Lab 01/23/24 19:39 Completed Hep C Ab with Reflex to RNA Stat Lab 01/23/24 19:39 Received Lipase Stat Lab 01/23/24 19:39 Completed UA [Urinalysis and Microscopic] Stat Lab 01/23/24 19:47 Completed Urine Culture Stat Micro 01/23/24 19:47 Received Medical Decision Narrative: In summary patient is a 58-year-old female who presents to the emergency department for evaluation of right flank pain. Patient is hemodynamically stable upon arrival, afebrile. Zickel exam is remarkable for CVA tenderness to percussion on the right negative on the left no anterior abdominal pain rebound guarding or rigidity. Bowel sounds normal active. Differential diagnosis includes kidney stone versus urinary tract infection versus cholecystitis versus pancreatitis etc. Initial workup will be conducted with hematologic labs CT scan abdomen pelvis with contrast. Initial interventions include Tylenol and Toradol for now. Initial workup reviewed by me white count of 17.6 with a left shift and absolute neutrophil count of 15.2 her CMP is nonactionable urinalysis shows 2+ ketones 3+ blood nitrite negative leukocyte Estrace negative with microscopic exam showing too numerous to count red cells 3-5 white cells 20-50 epithelial cells 3+ bacteria and my informal interpretation of her CT scan abdomen pelvis showed an obstructing approximately 3 mm stone at the right UVJ junction with hydronephrosis.. Upon repeat evaluation patient reported complete resolution of her discomfort. I had interactive discussion with the patient regarding her options given her findings and patient is comfortable going home with a prescription for Bactrim tamsulosin Toradol a referral to Dr. Don of urology. Thus she is appropriate for discharge at this time with strict return precautions <Anel N Sonido, DO - Last Filed: 01/24/24 00:27> [place] Inquiry Pt receiving controlled substance: Yes [place] was queried for this patient: Yes Risks and benefits of using a controlled substance: were discussed with pt by me Vital Signs: 01/23/24 17:55 01/23/24 19:21 01/23/24 21:26 Temperature 97.8 F 98.1 F 98.2 F Temperature Source Oral Oral Pulse Rate 78 Pulse Rate [Left Radial] 68 83 Respiratory Rate 18 18 20 Blood Pressure 136/73 Blood Pressure [Left Arm] 124/85 143/78 H Blood Pressure Mean [Left Arm] 98 99 02 Sat by Pulse Oximetry 98 100 Oxygen Delivery Method Room Air Room Air Lab Data Lab Results 01/23/24 19:39: WBC 17.6 H, RBC 4.53, Hgb 13.3, Hct 38.0, MCV 83.9, MCH 29.3, MCHC 35.0, RDW 13.9, Plt Count 325, MPV 8.7, Neut % (Auto) 86.6 H, Lymph % (Auto) 9.3 L, [place] % (Auto) 3.3, Eos % (Auto) 0.3, Baso % (Auto) 0.5, Neut # (Auto) 15.2 H, Lymph # (Auto) 1.6, [place] # (Auto) 0.6, Eos # (Auto) 0.1, Baso # (Auto) 0.1, Total Counted 100, Neutrophils % (Manual) 84 H, Band Neutrophils % 3.0, Lymphocytes % (Manual) 10, Monocytes % (Manual) 3, Platelet Estimate Normal, Anisocytosis 1+, Microcytosis 1+, Macrocytosis 1+, Ovalocytes 1+, Sodium 136, Potassium 4.1, Chloride 101, Carbon Dioxide 25, Anion Gap 14.1, BUN 25 H, Creatinine 0.70, Estimated Creat Clear 103, Estimated GFR 86, Est GFR ( Amer) 104, Glucose 116 H, Calcium 9.5, Total Bilirubin 0.5, AST 36, ALT 30, Alkaline Phosphatase 63, Total Protein 7.2, Albumin 5.0, Globulin 2.2, A lbumin/Globulin Ratio 2.3 H, Lipase 83, HIV 1&2 Antibody Rapid Nonreactive 01/23/24 19:47: Urine Color Yellow, Urine Appearance Clear, Urine pH 6.0, Ur Specific [place] >= 1.030, Urine Protein Negative, Urine Glucose (UA) Negative, Urine Ketones 2+, Urine Blood 3+ A, Urine Nitrate Negative, Urine Bilirubin Negative, Urine Urobilinogen 0.2, Ur Leukocyte Esterase Negative, Urine RBC Tntc, Urine WBC 3-5, Ur Squamous Epith Cells 20-50, Urine Bacteria 3+ Orders (Tests/Meds): ED MEDICATIONS Discontinued Medications Generic Name Dose Route Start Last Admin Trade Name Freq PRN Reason Stop Dose Admin Acetaminophen 1,000 mg 01/23/24 19:41 01/23/24 19:44 Acetaminophen 500mg Tab PO 01/23/24 19:42 1,000 mg ONCE ONE Administration Sodium Chloride 1,000 mls @ 250 mls/hr 01/23/24 18:15 Sod Chlor 0.9% 1000ml Bag IV 02/22/24 18:14 .Q4H ESTEBAN Iopamidol 75 ml 01/23/24 20:14 01/23/24 20:15 Iopamidol-370 (76%);100ml Bottle IV 01/23/24 20:15 75 ml ONCE ONE Administration Ketorolac Tromethamine 15 mg 01/23/24 19:41 01/23/24 19:44 Ketorolac 30mg/Ml Vial IV 01/23/24 19:42 15 mg ONCE ONE Administration Sodium Chloride 10 ml 01/23/24 20:14 01/23/24 20:15 Sodium Chloride 0.9% 10ml Syr (Rad Only) IV 02/22/24 20:13 10 ml NEEDED PRN Administration Maintain IV Site Tamsulosin HCl 0.4 mg 01/23/24 21:15 01/23/24 21:20 Tamsulosin 0.4mg Capsule PO 01/23/24 21:16 0.4 mg ONCE ONE Administration Trimethoprim/Sulfamethoxazole 1 each 01/23/24 21:14 01/23/24 21:20 Sulfa/Trimethoprim 1 Tablet PO 01/23/24 21:15 1 each ONCE ONE Administration ORDERS Category Date Time Status CT abdomen pelvis w con Stat Cat Scan 01/23/24 19:21 Completed Complete Blood Count Auto Diff Stat Lab 01/23/24 19:39 Completed Comprehensive Metabolic Panel Stat Lab 01/23/24 19:39 Completed HIV (1&2) Antibody Rapid Stat Lab 01/23/24 19:39 Completed Hep C Ab with Reflex to RNA Stat Lab 01/23/24 19:39 Received Lipase Stat Lab 01/23/24 19:39 Completed UA [Urinalysis and Microscopic] Stat Lab 01/23/24 19:47 Completed Urine Culture Stat Micro 01/23/24 19:47 Received Critical Care <REJI Diaz - Last Filed: 01/23/24 23:08> Critical Care Time Critical Care Time: No
[2024-01-23 19:21] VITALS: BP 143/78; PULSE 83; RESP 18; TEMP 36.7; O2SAT 100; BMI 31.6
--- NOTE | 2024-01-23 19:21 | CT_ITS ---
PROCEDURE INFORMATION: Exam: CT Abdomen And Pelvis With Contrast Exam date and time: 01/23/2024 8:12 PM Age: 58 years old Clinical indication: Abdominal pain and other: Right flank pain; Additional info: Right flank pain, h0 kidney stones TECHNIQUE: Imaging protocol: Computed tomography of the abdomen and pelvis with contrast. Radiation optimization: All CT scans at this facility use at least one of these dose optimization techniques: automated exposure control; mA and/or kV adjustment per patient size (includes targeted exams where dose is matched to clinical indication); or iterative reconstruction. Contrast material: ISOVUE 370; Contrast volume: 75 ml; Contrast route: IV; COMPARISON: CT ABDOMEN PELVIS W CON 05/10/2022 7:46 PM FINDINGS: Liver: Normal. No mass. Gallbladder and biliary ducts: Normal. No calcified stones. No ductal dilation. Pancreas: Normal. No ductal dilation. Spleen: Normal. No splenomegaly. Adrenal glands: Normal. No mass. Kidneys and ureters: Mild right hydronephrosis is documented. There are multiple bilateral nonobstructing calyceal calculi which measure in size between 3 mm and 6 mm. Mild right hydroureter with transition point at the right UVJ calculus image number 97 measuring 3.7 mm across. Stomach and bowel: Diverticulosis without diverticulitis at descending and sigmoid colon. Appendix: No evidence of appendicitis. Intraperitoneal space: Unremarkable. No free air. No significant fluid collection. Vasculature: Unremarkable. No abdominal aortic aneurysm. Lymph nodes: Unremarkable. No enlarged lymph nodes. Urinary bladder: Unremarkable as visualized. Reproductive: Patient is status post hysterectomy Bones/joints: Unremarkable. No acute fracture. Soft tissues: Unremarkable. IMPRESSION: Mild right hydronephrosis caused by 3.7 mm right UVJ calculus.
[2024-01-23] MEDS: KETOROLAC 30MG/ML VIAL 15 MG IV (19:44)
[2024-01-23] MEDS: ACETAMINOPHEN 500MG TAB 1000 MG PO (19:44)
[2024-01-23 19:53] LABS: Microscopic, Urine URINE MICROSCOPIC (MICROSCOPIC)
[2024-01-23 19:56] LABS: Basophils # 0.1 K/mm3 (0-0.2); Basophils % 0.5 % (0.1-2.0); Eosinophils # 0.1 K/mm3 (0.0-0.4); Eosinophils % 0.3 % (0.1-12.0); Hemoglobin 13.3 g/dL (12.2-16.2); Lymphocytes # 1.6 K/mm3 (0.7-4.5); Lymphocytes % 9.3 % (10-50); Mean Corpuscular Hemoglobin 29.3 pg (27.0-31.2); Mean Corpuscular Volume 83.9 fl (81-99); Mean Platelet Volume 8.7 fl (7.4-10.4); Monocytes # 0.6 K/mm3 (0.1-1.0); Monocytes % 3.3 % (1.7-9.3); Neutrophils # 15.2 K/mm3 (1.8-7.8); Neutrophils % 86.6 % (37.0-80.0); Platelet Count 325 K/mm3 (142-424); Red Blood Count 4.53 M/mm3 (4.20-5.40); Red Cell Distribution Width 13.9 % (11.5-17.5); White Blood Count 17.6 K/mm3 (4.8-10.8)
[2024-01-23 19:56] LABS: Appearance,Urine CLEAR (Clear); Bilirubin,Urine Negative (Negative); Blood, Urine 3+ (Negative); Color,Urine YELLOW (Yellow); Glucose,Urine (UA) Negative (Negative); Ketones,Urine 2+ (Negative); Leukocyte Esterase,Urine Negative (Negative); Nitrate,Urine Negative (Negative); Protein,Urine Negative (Negative); Specific Gravity, Urine >= 1.030 (1.005-1.030); Urobilinogen,Urine 0.2 EU/dl (0.2)
[2024-01-23 20:05] LABS: Alanine Aminotransferase 30 U/L (12-78); Albumin/Globulin Ratio 2.3 (1.1-1.8); Alkaline Phosphatase 63 U/L (38-126); Anion Gap 14.1 mEq/L (5-15); Aspartate Amino Transferase 36 U/L (14-36); Bilirubin,Total 0.5 mg/dl (0.2-1.3); Blood Urea Nitrogen 25 mg/dl (7-17); Calcium 9.5 mg/dl (8.4-10.2); Carbon Dioxide 25 mmol/L (22.0-30.0); Chloride 101 mmol/L (98-107); Creatinine Clearance Estimated 103 mL/min (50-200); Estimated Glomerular Filt Rate 86 ml/min (>60); GFR (African American) 104 ML/MIN (>60); Globulin 2.2 g/dL (1.3-3.2); Glucose 116 mg/dl (74-100); Lipase 83 U/L (23-300); Potassium 4.1 mmoL/L (3.5-5.1); Sodium 136 mmol/L (136-145); Total Protein,Serum 7.2 g/dl (6.3-8.2)
[2024-01-23 20:09] LABS: MANUAL DIFFERENTIAL MANUAL DIFFERENTIAL (MANUAL DIFF)
--- NOTE | 2024-01-23 20:11 | PC.NURSE ---
to CT at this time
[2024-01-23] MEDS: SODIUM CHLORIDE 0.9% 10ML SYR (RAD ONLY) 10 ML IV (20:15)
[2024-01-23] MEDS: IOPAMIDOL-370 (76%);100ML BOTTLE 75 ML IV (20:15)
[2024-01-23 20:20] LABS: Bacteria,Urine 3+ /lpf; RBC,Urine TNTC #/hpf (0-3); Squamous Epithelial Cell,Urine 20-50 #/hpf (0-5)
[2024-01-23 20:54] LABS: HIV (1&2) Antibody Rapid NONREACTIVE (NONREACTIVE)
[2024-01-23] MEDS: SULFA/TRIMETHOPRIM 1 TABLET 1 EACH PO (21:20)
[2024-01-23] MEDS: TAMSULOSIN 0.4MG CAPSULE 0.4 MG PO (21:20)
[2024-01-23 21:26] VITALS: BP 136/73; PULSE 78; RESP 20; TEMP 36.8; O2SAT 97
[2024-01-23 22:33] LABS: Lymphocytes % 10 % (10-50); Monocytes % 3 % (2-9); Neutrophils % 84 % (42-76); Total Cells Counted 100
[2024-01-23 22:34] LABS: Anisocytosis 1+; Macrocytosis 1+; Microcytosis 1+; Ovalocytes 1+; Platelet Estimate Normal
--- NOTE | 2024-01-24 08:24 | PC.NURSE ---
[facility] pharm[facility] called about the torodol we sent in. Due to her not having a torodol injection or IV the order was changed to 600mg PO ibuprofen q8 PRN with a total of 20 tablets by .
[2024-01-25 08:22] LABS: HCV Ab Non Reactive (Non Reactive)
== END 2024-01-23 21:27 | disposition home or self-care (01) ==
LOC: UTC 18:09 → ER 19:11
PROVIDERS: Nurse Practitioner Family; Physician Assistant; Emergency Provider Emergency Medicine; PCP Physician Assistant
DX: N20.0 Calculus of kidney (principal); N39.0 Urinary tract infection, site not specified
CPT/HCPCS: 74177; 80053; 81001; 83690; 85007; 85025; 85027; 86803; 87086; 87389; 96374; 99285; J1885; Q9967

== ENCOUNTER 2024-01-28 16:33 | Emergency (ER) | payer BC, SELFPAY ==
[2024-01-28 16:34] VITALS: BP 118/70; PULSE 67; RESP 18; TEMP 37.1; O2SAT 95; BMI 31.2
--- NOTE | 2024-01-28 17:25 | CT_ITS ---
PROCEDURE INFORMATION: Exam: CT Abdomen And Pelvis Without Contrast Exam date and time: 01/28/2024 6:31 PM Age: 58 years old Clinical indication: Abdominal pain; Generalized; Additional info: Kidney stone TECHNIQUE: Imaging protocol: Computed tomography of the abdomen and pelvis without contrast. Radiation optimization: All CT scans at this facility use at least one of these dose optimization techniques: automated exposure control; mA and/or kV adjustment per patient size (includes targeted exams where dose is matched to clinical indication); or iterative reconstruction. COMPARISON: CT ABDOMEN PELVIS W CON 01/23/2024 8:12 PM FINDINGS: Liver: Liver is unremarkable. Gallbladder and biliary ducts: Gallbladder unremarkable Pancreas: Pancreas unremarkable Spleen: The spleen is unremarkable. Splenic granulomas Adrenal glands: Adrenal glands unremarkable. Kidneys and ureters: Bilateral punctate nonobstructing renal calculi. Previously demonstrated mild right hydronephrosis has resolved. Previously demonstrated right UVJ calculus is no longer present. This is not visualized within the bladder and presumably has been excreted. Stomach and bowel: Moderate stool burden Appendix: No evidence of appendicitis. Intraperitoneal space: Unremarkable. No free air. No significant fluid collection. Vasculature: Unremarkable. No abdominal aortic aneurysm. Lymph nodes: Unremarkable. No enlarged lymph nodes. Urinary bladder: See Kidneys and ureters finding. Reproductive: Hysterectomy Bones/joints: Unremarkable. No acute fracture. Soft tissues: Unremarkable. IMPRESSION: 1. No evidence of acute abnormality. 2. Previously demonstrated mild right hydronephrosis has resolved. Previously demonstrated right UVJ calculus is no longer present. This is not visualized within the bladder and presumably has been excreted.
--- NOTE | 2024-01-28 17:47 | ED_ITS ---
Discharge Plan Disposition Patient Disposition: Home, Self-Care Condition: Good Prescriptions Prescriptions: No Action lisinopril-hydrochlorothiazide 20-12.5 mg tablet 1 tab PO DAILY Patient Comments: TAKE 1 TABLET BY MOUTH ONCE DAILY potassium chloride 10 mEq tablet extended release 10 meq PO DAILY Patient Comments: TAKE 1 TABLET BY MOUTH TWICE DAILY venlafaxine 37.5 mg tablet 37.5 mg PO DAILY Patient Comments: TAKE 1 TABLET BY MOUTH ONCE DAILY rosuvastatin 10 mg tablet 10 mg PO DAILY sulfamethoxazole-trimethoprim [Bactrim DS] 800-160 mg tablet 1 tab PO BID 5 Days Qty: 10 0RF tamsulosin 0.4 mg capsule 0.4 mg PO HS Qty: 7 0RF ketorolac 10 mg tablet 10 mg PO Q8H PRN (Reason: pain) 3 Days Qty: 14 0RF oxycodone 5 mg tablet 5 mg PO Q8H PRN (Reason: pain) Qty: 12 0RF Referrals Follow up/Referrals: Meg Evans PA [Primary Care Provider] - See instructions Activity Restrictions/Add. Instructions Additional Instructions/Restrictions: Increase fluids and rest. Scan showed no stone or no hydronephrosis. Urine was normal. Follow-up with your PCP if not improved. Clinical Impressions Clinical Impression: Dysuria Instructions Patient Instructions: Kidney Stones -- Adult Print Language Print Language: Bulgarian Discharge ED Provider: Devan Pabon General Adult HPI <Judith Borrero (ED), MOLDER SWEEP - Last Filed: 01/28/24 21:00> General Chief complaint: Recheck/Abnormal Lab/Rx Stated complaint: weak tired low blood pressure Time Seen by Provider: 01/28/24 17:47 History of Present Illness HPI narrative: This is a 58-year-old female who presents to the ED today for feeling weak, tired and shaky with some hot flashes and chills. She has no nausea or vomiting. No other symptoms. She did come to the ED earlier this week and had a 3-1/2 mm kidney stone that she was told was infected. She did not want to be admitted. She did pass the kidney stone she believes but still having some pain in feels terrible. She has no other symptoms at this time. Related Data Home Medications ?Medication ?Instructions ?Recorded ?Confirmed lisinopril 20 1 tab PO DAILY . 05/16/22 01/23/24 mg-hydrochlorothiazide 12.5 mg tablet potassium chloride 10 mEq 10 meq PO DAILY . 05/16/22 01/23/24 tablet,extended release rosuvastatin 10 mg tablet 10 mg PO DAILY . 05/16/22 01/23/24 venlafaxine 37.5 mg tablet 37.5 mg PO DAILY . 05/16/22 01/23/24 Previous Rx's ?Medication ?Instructions ?Recorded ketorolac 10 mg tablet 10 mg PO Q8H PRN pain 3 days #14 01/23/24 tabs oxycodone 5 mg tablet 5 mg PO Q8H PRN pain #12 tabs 01/23/24 sulfamethoxazole 800 1 tab PO BID 5 days #10 tabs 01/23/24 mg-trimethoprim 160 mg tablet (Bactrim DS) tamsulosin 0.4 mg capsule 0.4 mg PO HS #7 caps 01/23/24 Allergies Allergy/AdvReac Type Severity Reaction Status Date / Time No Known Allergies Allergy Verified 04/13/23 14:16 PFSH <Judith Borrero (ED), MOLDER SWEEP - Last Filed: 01/28/24 21:00> [facility] Disclaimer: The information contained in this section may have been updated after the patient was seen, as this information can be updated by other users. Medical History Hyperlipidemia Hypertension Hypertension Surgical History History of hysterectomy Family History (Updated 04/13/23 @ 14:25 by Ana Paula Crawford) Other Heart attack Hyperlipidemia Hypertension Social History Smoking Status: Never smoker alcohol intake: never substance use type: denies use current occupational status: employed Travel in the last 8 weeks: None Other Medical History Have you received the Pneumonia Vaccine: No <Judith Borrero (ED), MOLDER SWEEP - Last Filed: 01/28/24 21:00> ROS Obtained: Yes Systems reviewed as appropriate & no additional complaints except as documented Constitutional Constitutional: Reports as per HPI Physical Exam <Judith Borrero (ED), MOLDER SWEEP - Last Filed: 01/28/24 21:00> General General appearance: alert Head Head exam: atraumatic and normocephalic Eye Eye exam: Present normal appearance, PERRL and EOMI ENT ENT exam: Present normal exam and normal oropharynx Neck Neck exam: Present normal inspection and full ROM Chest Chest inspection: Present normal inspection Respiratory Respiratory exam: Present normal lung sounds bilaterally Cardiovascular Cardiovascular exam: Present regular rate, normal rhythm, normal heart sounds, +S1 and +S2 Abdominal Exam Abdominal exam: Present soft and normal bowel sounds Extremities Exam Extremities exam: Present normal inspection, full ROM and normal capillary refill Back Exam Back exam: Present normal inspection Neurological Exam Neurological exam: Present alert and oriented X3 Skin Skin exam: Present warm and dry Medical Decision Making <Judith Borrero (ED), MOLDER SWEEP - Last Filed: 01/28/24 21:00> Medical Records Screening: Per USPSTF and CDC recommendations, given the prevalence of disease in our region, it is our hospital?s policy to screen for HIV and viral Hepatitis for all patients aged 18 and over and those with ongoing risk factors. Woodrow Inquiry Pt receiving controlled substance: No Woodrow was queried for this patient: No Vital Signs: 01/28/24 16:34 01/28/24 21:23 01/28/24 21:25 Temperature 98.7 F 98.7 F 98.0 F Temperature Source Oral Oral Oral Pulse Rate 76 Pulse Rate [Right] 67 76 Respiratory Rate 18 20 20 Blood Pressure 135/70 Blood Pressure [Right Arm] 118/70 135/70 Blood Pressure Mean [Right Arm] 86 91 Blood Pressure Source Automatic Cuff Blood Pressure Position Sitting 02 Sat by Pulse Oximetry 95 96 Oxygen Delivery Method Room Air Room Air Room Air Lab Data Lab Results 01/28/24 17:58: WBC 10.0, RBC 4.69, Hgb 13.8, Hct 39.6, MCV 84.3, MCH 29.5, MCHC 34.9, RDW 13.8, Plt Count 322, MPV 7.9, Neut % (Auto) 70.8, Lymph % (Auto) 21.7, Antelope % (Auto) 5.2, Eos % (Auto) 1.5, Baso % (Auto) 0.7, Neut # (Auto) 7.1, Lymph # (Auto) 2.2, Antelope # (Auto) 0.5, Eos # (Auto) 0.2, Baso # (Auto) 0.1, Sodium 141, Potassium 4.5, Chloride 104, Carbon Dioxide 24, Anion Gap 17.5 H, BUN 26 H, Creatinine 1.10 H, Estimated Creat Clear 65, Estimated GFR 51 L, Est GFR ( Amer) 62, Glucose 120 H, Lactate 2.1, Calcium 9.9, Total Bilirubin 0.4, AST 33, ALT 27, Alkaline Phosphatase 69, Total Protein 7.8, Albumin 5.2 H, Globulin 2.6, Albumin/Globulin Ratio 2.0 H 01/28/24 18:08: Urine Color Yellow, Urine Appearance Clear, Urine pH 6.0, Ur Specific [place] >= 1.030, Urine Protein Trace, Urine Glucose (UA) Negative, Urine Ketones Negative, Urine Blood Negative, Urine Nitrate Negative, Urine Bilirubin 1+ A, Urine Urobilinogen 0.2, Ur Leukocyte Esterase Negative, Urine RBC None, Urine WBC 5-10, Ur Squamous Epith Cells 5-10, Amorphous Sediment 1+, Urine Bacteria 1+, Hyaline Casts 3-5 01/28/24 17:58 01/28/24 17:58 Orders (Tests/Meds): ED MEDICATIONS Discontinued Medications Generic Name Dose Route Start Last Admin Trade Name Freq PRN Reason Stop Dose Admin Lactated Ringer's 500 mls @ 999 mls/hr 01/28/24 17:22 01/28/24 17:53 Lactated Ringer's 1000 Ml Bag IV 01/28/24 17:52 999 mls/hr .Q31M ONE Administration Sodium Chloride 10 ml 01/28/24 18:02 Sodium Chloride 0.9% 10ml Flush Syringe IV 02/27/24 18:01 NEEDED PRN Maintain IV Site ORDERS Category Date Time Status CT abdomen pelvis wo con Stat Cat Scan 01/28/24 17:25 Completed CBC w/Auto Diff [Complete Blood Count Auto Diff] Stat Lab 01/28/24 17:58 Completed Comprehensive Metabolic Panel Stat Lab 01/28/24 17:58 Completed Lactic Acid Stat Lab 01/28/24 17:58 Completed Urinalysis-Acute [Urinalysis and Microscopic] Stat Lab 01/28/24 18:08 Completed Medical Decision Narrative: Insert review patient is a 58-year-old female presenting to the emergency department for evaluation of feeling bad, weak having chills. Patient is hemodynamically stable and nontoxic-appearing upon arrival, afebrile. Differential diagnosis includes UTI, kidney stone, sepsis, among others. Workup will be conducted with hematologic labs, specific imaging including CT scan with no contrast, provocative tests. Initial inventions include crystalloid bolus, analgesics, antibiotics patient is already on antibiotic. Initial workup reviewed by nc labs are remarkable for nothing acute. Formal imaging read remarkable for kidney stone that has passed. Upon repeat evaluation patient's pain is improved, appears better perfused, patient is safe for discharge home and feels much better <Devan Pabon MD - Last Filed: 01/28/24 21:37> Vital Signs: 01/28/24 16:34 01/28/24 21:23 01/28/24 21:25 Temperature 98.7 F 98.7 F 98.0 F Temperature Source Oral Oral Oral Pulse Rate 76 Pulse Rate [Right] 67 76 Respiratory Rate 18 20 20 Blood Pressure 135/70 Blood Pressure [Right Arm] 118/70 135/70 Blood Pressure Mean [Right Arm] 86 91 Blood Pressure Source Automatic Cuff Blood Pressure Position Sitting 02 Sat by Pulse Oximetry 95 96 Oxygen Delivery Method Room Air Room Air Room Air Lab Data Lab Results 01/28/24 17:58: WBC 10.0, RBC 4.69, Hgb 13.8, Hct 39.6, MCV 84.3, MCH 29.5, MCHC 34.9, RDW 13.8, Plt Count 322, MPV 7.9, Neut % (Auto) 70.8, Lymph % (Auto) 21.7, Antelope % (Auto) 5.2, Eos % (Auto) 1.5, Baso % (Auto) 0.7, Neut # (Auto) 7.1, Lymph # (Auto) 2.2, Antelope # (Auto) 0.5, Eos # (Auto) 0.2, Baso # (Auto) 0.1, Sodium 141, Potassium 4.5, Chloride 104, Carbon Dioxide 24, Anion Gap 17.5 H, BUN 26 H, Creatinine 1.10 H, Estimated Creat Clear 65, Estimated GFR 51 L, Est GFR ( Amer) 62, Glucose 120 H, Lactate 2.1, Calcium 9.9, Total Bilirubin 0.4, AST 33, ALT 27, Alkaline Phosphatase 69, Total Protein 7.8, Albumin 5.2 H, Globulin 2.6, Albumin/Globulin Ratio 2.0 H 01/28/24 18:08: Urine Color Yellow, Urine Appearance Clear, Urine pH 6.0, Ur Specific [place] >= 1.030, Urine Protein Trace, Urine Glucose (UA) Negative, Urine Ketones Negative, Urine Blood Negative, Urine Nitrate Negative, Urine Bilirubin 1+ A, Urine Urobilinogen 0.2, Ur Leukocyte Esterase Negative, Urine RBC None, Urine WBC 5-10, Ur Squamous Epith Cells 5-10, Amorphous Sediment 1+, Urine Bacteria 1+, Hyaline Casts 3-5 Orders (Tests/Meds): ED MEDICATIONS Discontinued Medications Generic Name Dose Route Start Last Admin Trade Name Freq PRN Reason Stop Dose Admin Lactated Ringer's 500 mls @ 999 mls/hr 01/28/24 17:22 01/28/24 17:53 Lactated Ringer's 1000 Ml Bag IV 01/28/24 17:52 999 mls/hr .Q31M ONE Administration Sodium Chloride 10 ml 01/28/24 18:02 Sodium Chloride 0.9% 10ml Flush Syringe IV 02/27/24 18:01 NEEDED PRN Maintain IV Site ORDERS Category Date Time Status CT abdomen pelvis wo con Stat Cat Scan 01/28/24 17:25 Completed CBC w/Auto Diff [Complete Blood Count Auto Diff] Stat Lab 01/28/24 17:58 Completed Comprehensive Metabolic Panel Stat Lab 01/28/24 17:58 Completed Lactic Acid Stat Lab 01/28/24 17:58 Completed Urinalysis-Acute [Urinalysis and Microscopic] Stat Lab 01/28/24 18:08 Completed Medical Decision Narrative: Insert review patient is a 58-year-old female presenting to the emergency department for evaluation of feeling bad, weak having chills. Patient is hemodynamically stable and nontoxic-appearing upon arrival, afebrile. Differential diagnosis includes UTI, kidney stone, sepsis, among others. Workup will be conducted with hematologic labs, specific imaging including CT scan with no contrast, provocative tests. Initial inventions include crystalloid bolus, analgesics, antibiotics patient is already on antibiotic. Initial workup reviewed by me labs are remarkable for nothing acute. Formal imaging read remarkable for kidney stone that has passed. Upon repeat evaluation patient's pain is improved, appears better perfused, patient is safe for discharge home and feels much better I was consulted by the KAITLNYN, and we discussed the complexity of the problems being addressed. I approved the treatment and management plan for this patient's care in the Emergency Department, thus performing a substantive portion of the medical decision making. Devan Pabon MD Critical Care <Judith Borrero (ED), MOLDER SWEEP - Last Filed: 01/28/24 21:00> Critical Care Time Critical Care Time: No
[2024-01-28] MEDS: LACTATED RINGERS 1000ML 500 ML 999 ML IV (17:53)
[2024-01-28 18:06] LABS: Basophils # 0.1 K/mm3 (0-0.2); Basophils % 0.7 % (0.1-2.0); Eosinophils # 0.2 K/mm3 (0.0-0.4); Eosinophils % 1.5 % (0.1-12.0); Hematocrit 39.6 % (37.0-47.0); Hemoglobin 13.8 g/dL (12.2-16.2); Lymphocytes # 2.2 K/mm3 (0.7-4.5); Lymphocytes % 21.7 % (10-50); Mean Corpuscular HGB Conc 34.9 g/dL (31.8-35.4); Mean Corpuscular Hemoglobin 29.5 pg (27.0-31.2); Mean Corpuscular Volume 84.3 fl (81-99); Mean Platelet Volume 7.9 fl (7.4-10.4); Monocytes # 0.5 K/mm3 (0.1-1.0); Monocytes % 5.2 % (1.7-9.3); Neutrophils # 7.1 K/mm3 (1.8-7.8); Neutrophils % 70.8 % (37.0-80.0); Platelet Count 322 K/mm3 (142-424); Red Blood Count 4.69 M/mm3 (4.20-5.40); Red Cell Distribution Width 13.8 % (11.5-17.5)
[2024-01-28 18:11] LABS: Albumin Level 5.2 g/dl (3.5-5.0); Chloride 104 mmol/L (98-107); Potassium 4.5 mmoL/L (3.5-5.1); Sodium 141 mmol/L (136-145)
[2024-01-28 18:13] LABS: Microscopic, Urine URINE MICROSCOPIC (MICROSCOPIC)
[2024-01-28 18:14] LABS: Alanine Aminotransferase 27 U/L (12-78); Alkaline Phosphatase 69 U/L (38-126); Anion Gap 17.5 mEq/L (5-15); Aspartate Amino Transferase 33 U/L (14-36); Bilirubin,Total 0.4 mg/dl (0.2-1.3); Blood Urea Nitrogen 26 mg/dl (7-17); Calcium 9.9 mg/dl (8.4-10.2); Carbon Dioxide 24 mmol/L (22.0-30.0); Creatinine Clearance Estimated 65 mL/min (50-200); Estimated Glomerular Filt Rate 51 ml/min (>60); GFR (African American) 62 ML/MIN (>60); Globulin 2.6 g/dL (1.3-3.2); Glucose 120 mg/dl (74-100); Total Protein,Serum 7.8 g/dl (6.3-8.2)
[2024-01-28 18:16] LABS: Lactic Acid 2.1 mmol/L (0.7-2.1)
[2024-01-28 18:17] LABS: Appearance,Urine CLEAR (Clear); Blood, Urine Negative (Negative); Color,Urine YELLOW (Yellow); Glucose,Urine (UA) Negative (Negative); Ketones,Urine Negative (Negative); Leukocyte Esterase,Urine Negative (Negative); Nitrate,Urine Negative (Negative); Protein,Urine TRACE (Negative); Specific Gravity, Urine >= 1.030 (1.005-1.030); Urobilinogen,Urine 0.2 EU/dl (0.2)
[2024-01-28 18:21] LABS: Bilirubin,Urine 1+ (Negative)
[2024-01-28 18:23] LABS: Amorphous Sediment,Urine 1+ /lpf; Bacteria,Urine 1+ /lpf
--- NOTE | 2024-01-28 18:30 | PC.NURSE ---
pt gone to ct via wheelchair
--- NOTE | 2024-01-28 18:37 | PC.NURSE ---
pt arrived back to room from ct
[2024-01-28 21:23] VITALS: BP 135/70; PULSE 76; RESP 20; TEMP 37.1; O2SAT 96
[2024-01-28 21:25] VITALS: BP 135/70; PULSE 76; RESP 20; TEMP 36.7; O2SAT 96
[2024-01-28 22:03] LABS: Reflex Lactic Add Lactic Reflex
== END 2024-01-28 21:20 | disposition home or self-care (01) ==
PROVIDERS: Nurse Practitioner; Emergency Provider Emergency Medicine; PCP Physician Assistant
DX: R30.0 Dysuria (principal); R53.1 Weakness; R53.83 Other fatigue; G25.0 Essential tremor; R68.83 Chills (without fever); N95.1 Menopausal and female climacteric states; R03.1 Nonspecific low blood-pressure reading
CPT/HCPCS: 74176; 80053; 81001; 83605; 85025; 96360; 99284; J7120

== ENCOUNTER 2024-02-16 12:43 | Outpatient (RCR) | payer BC, SELFPAY ==
--- NOTE | 2024-02-16 16:45 | HMH.OTOPEV ---
OT Inpatient Evaluation Rehab OT Outpatient Eval Start: 02/16/24 16:33 Freq: Status: Active Protocol: Document 02/16/24 16:33 CHERYLE (Rec: 02/16/24 16:43 [email or web address] [id number]) E-signed By Janet Jiménez, OT Outpatient Therapy Subjective History Subjective History 58 year old female referred to skilled OP OT services for L shld (upper/middle trapezium spasm) and L elbow pain ( lateral epicondylitis). Patient reported having pain in the L shld ~3 weeks consistently. 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 Patient reported having pain during jobsite with difficulty completing tasks that are required at work. X-ray on 01/19/24 with findings: Calcification adjacent to the humeral head, consistent with calcific tendinitis. Mild acromioclavicular degenerative change without acute bony abnormality. Chief Complaint Pain,Spasms Symptoms Relieved By OTC Meds Symptoms Aggravated By Physical Activity Prior Functional Limitations None Current Functional Limitations Reaching,Lifting Level of pain today (0-10) 3 Pain scale - at its best (0-10) 3 Pain scale - at its worst (0-10) 3 Shoulder/Elbow Eval Shoulder Objective Measurements Shoulder ROM Left Shoulder Abduction Active Range of 140 Motion (degrees) Shoulder Flexion Active Range of Motion 140 (degrees) Query Text: Shoulder External Rotation Active Range 50 of Motion (degrees) Shoulder Internal Rotation Active Range 50 of Motion (degrees) pain with active ROM shoulder exam left standard Shoulder MMT Lower Trapezius Strength Grade 3- Fair- Middle Trapezius Strength Grade 3- Fair- Upper Trapezius/Levator Scapulae 3- Fair- Shoulder Abduction Strength Grade 3- Fair- Shoulder Extension Strength Grade 3- Fair- Shoulder Flexion Strength Grade 3- Fair- Shoulder Horizontal Abduction Strength 3- Fair- Grade Shoulder Horizontal Adduction Strength 3- Fair- Grade Infraspinatus/Teres Minor Strength Grade 3- Fair- Shoulder External Rotation Strength 3- Fair- Grade Shoulder Internal Rotation Strength 3- Fair- Grade Elbow Objective Measurements QuickDASH Activities Please rate your ability to do the following activities in the last week by selecting the number below the appropriate response. 1. Open a tight or new jar. No difficulty 2. Do heavy financial reporting analyst (e.g., wash No difficulty thomas, floors). 3. Carry a shopping bag or briefcase. Moderate difficulty 4. Wash your back. No difficulty 5. Use a knife to cut food. No difficulty 6. Recreational activities in which you Moderate difficulty take some force or impact through your arm, shoulder, or hand (e.g., golf, hammering, tennis, etc.). 7. During the past week, to what extent Moderately has your arm, shoulder or hand problem interfered with your normal social activities with family, friends, neighbors or groups? 8. During the past week, were you Slightly limited limited in your work or other regular daily activites as a result of your arm, shoulder or hand problem? 9. Arm, shoulder or hand pain. Moderate 10. Tingling (pins and needles) in your None arm, shoulder or hand. 11. During the past week, how much Mild difficulty difficulty have you had sleeping because of the pain in your arm, shoulder or hand? Quick DASH 21 OT Outpatient Assessment Impairments Problems/Impairments Impaired Range of Motion, Impaired Strength,Impaired Work Activities,Subjective C/O Pain Prognosis Rehab Potential Good Clinical Impression Consistent with Diagnosis Yes Short Term Goals Number of Weeks 2 Increase Range of Motion Yes: Improve AROM of L UE shld strength flex: 150; abd: 150; er: 60; ir: 60 Increase Strength Yes: Improve L UE shld strength to 3 to 3+/5 throughout Decrease Subjective C/O Pain Yes: 2/10 pain at worst Patient to be Ind w/ HEP Yes: AAROM Patient to be Ind w/ Advanced HEP Yes: Strengthening Improve Quick Dash Score Yes: 19 Care Home Goals Number of Weeks 4 Increase Range of Motion Yes: Improve AROM of L UE shld strength flex: 160; abd: 160; er: 70; ir: 70 Increase Strength Yes: Improve L UE shld strength to 3+/5 to 4-/5 throughout Decrease Subjective C/O Pain Yes: 1/10 pain at worst Patient to be Ind w/ HEP Yes: AROM Patient to be Ind w/ Advanced HEP Yes: Advance strengthening Improve Quick Dash Score Yes: 17 Outpatient Therapy Plan of Care Treatment Plan May Include Therapeutic Exercise Including Home Yes Exercise Program Manual Therapy Techniques Yes Therapeutic Activities to Return to Yes Previous Functional/Work Level Thermal Modalities Yes Electrical Stimulation Yes Ultrasound/Phonophoresis Yes Iontophoresis Yes Eval/Re-Eval Yes Aquatic Therapy Yes Frequency Times per week 2x/wk Duration Number of Weeks 4 weeks Addendums This patient is a candidate for social No or vocational rehab? Patient/Guardian verbally acknowledges Yes understanding of treatment program and consents to further treatment? Patient/Guardian verbally acknowledges Yes understanding of diagnosis, prognosis and goals for treatment? Eval Complexity OT Charge 32141 - Low Complexity PHYSICIAN CERTIFICATION: I certify the specified therapy services for Shell Rosado are required, authorized, and reviewed every 30 days.
== END 2024-02-16 23:59 | disposition home or self-care (01) ==
LOC: OT 12:43
PROVIDERS: Visit Provider Physician Assistant
DX: M77.12 Lateral epicondylitis, left elbow (principal); M62.838 Other muscle spasm
CPT/HCPCS: 97165

== ENCOUNTER 2024-03-29 13:41 | Outpatient (POV) | payer BC, SELFPAY ==
[2024-03-29 14:53] VITALS: BP 139/66; PULSE 80; RESP 18; O2SAT 94; BMI 31.8
--- NOTE | 2024-03-29 15:09 | EXP.PAIN.OV ---
HPI Data of Consult Patient: new to practice Consult date: 03/29/24 Requesting Physician: Anel Osborn APRN Primary Care Provider: REJI Dukes Consult Narrative Reason for consult: Neck pain, bilateral shoulder, arm pain, headache History of present illness: Ms. Rosado is a 58 year old female who presents today as a new patient. She is a referral from [facility]. Today she rates her pain a 4 of 5 out of 10. Patient states she has chronic pain that has been going on for the last several months in her neck, bilateral shoulders and arms. She does state that the left arm does seem worse than the right. She does describe it as a burning, aching sensation that is worse with increased activity or certain positioning with her arms. She does state due to the worsening pain she feels like she has a lot of tension in her muscles and it is causing even tension headaches. Patient states that she works at [employer] and that always has her arms up for sewing or other activities and that does seem to significantly aggravate her pain. Patient has tried [id number]-[id number] Tylenol and ibuprofen along with heat and ice and topicals such as Voltaren with some improvement. Patient did go to physical therapy for 1 episode but does see a chiropractor on a regular basis and feels like this does help. Patient denies any prior back surgery or injection history. Patient is interested in any help we may be able to provide as the pain is interfering with her ability perform activities of daily living such as cooking and cleaning. Her Woodrow has been reviewed and is appropriate. CC: Anel Osborn APRN [facility] Disclaimer: The information contained in this section may have been updated after the patient was seen, as this information can be updated by other users. Medical History Hyperlipidemia Hypertension Hypertension Surgical History History of hysterectomy Family History Other Heart attack Hyperlipidemia Hypertension Social History (Updated 03/29/24 @ 15:04 by Kenia Haro RN) Smoking Status: Never smoker alcohol intake: never substance use type: denies use current occupational status: employed Travel in the last 8 weeks: None Contact w/someone who lives/traveled outside US past 30 days?: No Exposure to someone with infectious disease in past 14 days?: No Do you have a fever (greater than 100.4 F or 38 C)?: No Have you tested positive for COVID-19: No Exposed to someone with COVID-19 in past 14 days?: No Do you have a sore throat?: No Do you have a cough?: No Do you have any weakness?: No Are you experiencing any nausea/vomitting?: No Do you have any diarrhea?: No Are you experiencing any unusual bleeding?: No Do you have any muscle aches/pain?: No Do you have any abdominal pain?: No Are you experiencing loss of taste or smell?: No Review of Systems Review of Systems Review of systems:: pertinent systems reviewed and negative unless documented below Review of systems (narrative): Review of Systems: General: No recent weight changes, no fever, no sleep disturbances Respiratory: No cough, no shortness of air, no recurring pulmonary infections Cardiovascular/peripheral vascular: No chest pain, no palpitations, no edema, no shortness of breath Gastrointestinal: No new onset incontinence, normal bowel movements reported Genitourinary: No new onset incontinence Musculoskeletal: Neck pain, bilateral shoulder pain, arm numbness tingling Psychiatric: [Normal mood/affect] Neurological: [Denies weakness in extremities], [denies balance issues] Meds Home Medications and Allergies Home Medications ?Medication ?Instructions ?Recorded ?Confirmed ?Type lisinopril 20 1 tab PO DAILY . 05/16/22 03/11/24 History mg-hydrochlorothiazide 12.5 mg tablet potassium chloride 10 mEq 10 meq PO DAILY . 05/16/22 03/11/24 History tablet,extended release rosuvastatin 10 mg tablet 10 mg PO DAILY . 05/16/22 03/11/24 History venlafaxine 37.5 mg tablet 37.5 mg PO DAILY . 05/16/22 03/11/24 History ketorolac 10 mg tablet 10 mg PO Q8H PRN pain 3 days #14 01/23/24 03/11/24 Rx tabs oxycodone 5 mg tablet 5 mg PO Q8H PRN pain #12 tabs 01/23/24 03/11/24 Rx sulfamethoxazole 800 1 tab PO BID 5 days #10 tabs 01/23/24 03/11/24 Rx mg-trimethoprim 160 mg tablet (Bactrim DS) tamsulosin 0.4 mg capsule 0.4 mg PO HS #7 caps 01/23/24 03/11/24 Rx New Prescriptions to Start Prescriptions: Allergies Allergy/AdvReac Type Severity Reaction Status Date / Time No Known Allergies Allergy Verified 03/11/24 13:14 Objective Narrative: Physical Exam: General: Alert and oriented x3, no acute distress, pleasant and cooperative Lungs: Respirations even and unlabored, symmetrical chest expansion Eyes: PERRL Musculoskeletal: Flexion and extension of cervical [spine] somewhat guarded secondary to pain, [antalgic gait noted] positive Spurling's test Neurological: Speech clear, no gross sensory deficit Additional findings Additional findings: FINDINGS: CERVICAL SPINE: AP and lateral views of the cervical spine were obtained. There is no prior exam for comparison. There is no acute fracture or malalignment. Vertebral body height is preserved. Mild and moderate degenerative change of the mid and lower cervical spine is present. The precervical soft tissues are normal. IMPRESSION: Mild and moderate degenerative change of the mid and lower cervical spine, without acute bony abnormality. Reviewed, Interpreted and Dictated by Aguilar Chau III, MD Transcribed by Soraida Castro Authenticated and [facility] Assessment and Plan *Assessment and plan (1) Degenerative disc disease, cervical: Status: Acute Category: Medical Code(s): M50.30 - Other cervical disc degeneration, unspecified cervical region (2) Cervical radiculopathy: Status: Acute Category: Medical Code(s): M54.12 - Radiculopathy, cervical region (3) Myofascial pain: Status: Acute Category: Medical Code(s): M79.18 - Myalgia, other site (4) Cervicogenic headache: Status: Chronic Category: Medical Code(s): G44.86 - Cervicogenic headache Plan Patient is experiencing significant pain throughout her neck that does have radiating numbness and tingling into her upper extremities. Patient did have limited range of motion of her cervical spine and a positive Spurling's test. I did discuss with patient that I do believe she would benefit from a cervical epidural steroid injection as well as possible trigger point injections in the future. Risk and benefits were discussed with patient and she would like to proceed forward with this plan of care. Patient has tried and failed conservative therapy and has been experiencing this pain for more than 3 months. Patient has tried even chiropractor, physical therapy and continued at home stretching exercise that was physician guided for more than 12 weeks. I will order the patient a compounded cream and schedule her for a cervical epidural steroid injection C6 or C7 under fluoroscopy. Patient has been instructed to contact the clinic with any concerns before the next appointment. Dr. Jerome has reviewed this note and agrees with this plan of care. This note was dictated using voice recognition software and make contain errors or omissions. All injections are used with Lidocaine, Bupivacaine and Depo Medrol. Occasionally urine drug screen is needed to verify patient's compliance with our office pain contract. This is ordered based off specific treatments related to chronic pain with the potential to abuse certain medications.
== END 2024-03-29 23:59 | disposition home or self-care (01) ==
LOC: SC.PAIN 13:41
PROVIDERS: PCP Physician Assistant; Visit Provider Nurse Practitioner Family
DX: M50.10 Cervical disc disorder with radiculopathy, unspecified cervical region (principal); M79.18 Myalgia, other site; G44.86 Cervicogenic headache; Z73.89 Other problems related to life management difficulty
CPT/HCPCS: 99202; G0463

== ENCOUNTER 2024-04-19 14:26 | Outpatient (CLI) | payer BC, SELFPAY ==
--- NOTE | 2024-04-19 14:29 | MR_ITS ---
FINAL REPORT TECHNIQUE: Multiplanar MR without contrast CLINICAL HISTORY: NECK PAIN FINDINGS: Limited images of the posterior fossa are unremarkable. Alignment is normal. Cervical spinal cord shows normal signal and contour. C2-3: Unremarkable C3-4: Unremarkable C4-5: Mild annular disc bulge. Moderate bilateral neuroforaminal narrowing. C5-6: Mild annular disc bulge with moderate right neuroforaminal narrowing. C6-7: Mild annular disc bulge. C7-T1: Unremarkable IMPRESSION: Mild degenerative changes in the lower cervical spine, most pronounced at C4-5. Reviewed, Interpreted and Dictated by Anuj Van MD Transcribed by Stacia Ny Authenticated and [facility]
== END 2024-04-19 23:59 | disposition home or self-care (01) ==
LOC: RAD 14:26
PROVIDERS: PCP Physician Assistant; Visit Provider Nurse Practitioner Family
DX: M50.30 Other cervical disc degeneration, unspecified cervical region (principal)
CPT/HCPCS: 72141

== ENCOUNTER 2024-05-17 14:12 | Outpatient (POV) | payer BC, SELFPAY ==
[2024-05-17 14:17] VITALS: BP 130/67; PULSE 80; RESP 80; O2SAT 93; BMI 31.8
--- NOTE | 2024-05-17 14:35 | EXP.PAIN.SOA ---
[facility] Disclaimer: The information contained in this section may have been updated after the patient was seen, as this information can be updated by other users. Medical History Hyperlipidemia Hypertension Hypertension Surgical History History of hysterectomy Family History Other Heart attack Hyperlipidemia Hypertension Social History Smoking Status: Never smoker alcohol intake: never substance use type: denies use current occupational status: other Travel in the last 8 weeks: None PM Subjective & Objective Subjective Subjective:: Patient is a pleasant 59-year-old female who presents today for follow-up of her cervical MRI. Today she does rate her pain right now a 2 out of 10 however does state that on days that she works it does go to at least a 5 or more. Patient states she still has the chronic neck pain that goes into her bilateral shoulders with the left side still continuing to be the worst. She does states she has tingling sensations into her extremities. She also makes mention that she has increased headaches. 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 She states the pain is interfering with her ability perform activities of daily living such as cooking and cleaning. Patient states she is interested in injection therapy. Patient is still using her compounded cream and states this does help some. Her Woodrow has been reviewed and is appropriate. Review of Systems: General: No recent weight changes, no fever, no sleep disturbances Respiratory: No cough, no shortness of air, no recurring pulmonary infections Cardiovascular/peripheral vascular: No chest pain, no palpitations, no edema, no shortness of breath Gastrointestinal: No new onset incontinence, normal bowel movements reported Genitourinary: No new onset incontinence Musculoskeletal: Neck pain, bilateral shoulder pain, headaches Psychiatric: [Normal mood/affect] Neurological: [Denies weakness in extremities], [denies balance issues] Pain at rest (0-10 scale): 5 Objective Objective:: Physical Exam: General: Alert and oriented x3, no acute distress, pleasant and cooperative Lungs: Respirations even and unlabored, symmetrical chest expansion Eyes: PERRL Musculoskeletal: Flexion and extension of cervical [spine] somewhat guarded secondary to pain, [antalgic gait noted] positive Spurling's test Neurological: Speech clear, no gross sensory deficit Has patient had previous pain injection?: No Conservative treatment options previously tried: Home exercise plan Length of treatment: Longer than 12 weeks Meds Home Medications and Allergies Home Medications ?Medication ?Instructions ?Recorded ?Confirmed ?Type lisinopril 20 1 tab PO DAILY . 05/16/22 05/17/24 History mg-hydrochlorothiazide 12.5 mg tablet potassium chloride 10 mEq 10 meq PO DAILY . 05/16/22 05/17/24 History tablet,extended release rosuvastatin 10 mg tablet 10 mg PO DAILY . 05/16/22 05/17/24 History venlafaxine 37.5 mg tablet 37.5 mg PO DAILY . 05/16/22 05/17/24 History ketorolac 10 mg tablet 10 mg PO Q8H PRN pain 3 days #14 01/23/24 05/17/24 Rx tabs tamsulosin 0.4 mg capsule 0.4 mg PO HS #7 caps 01/23/24 05/17/24 Rx New Prescriptions to Start Prescriptions: Allergies Allergy/AdvReac Type Severity Reaction Status Date / Time No Known Allergies Allergy Verified 03/11/24 13:14 Assessment and Plan *Assessment and plan (1) Cervical radiculopathy: Status: Acute Category: Medical Code(s): M54.12 - Radiculopathy, cervical region (2) Degenerative disc disease, cervical: Status: Acute Category: Medical Code(s): M50.30 - Other cervical disc degeneration, unspecified cervical region (3) Myofascial pain: Status: Acute Category: Medical Code(s): M79.18 - Myalgia, other site (4) Headache: Status: Acute Category: Medical Code(s): R51.9 - Headache, unspecified Plan Patient is experiencing worsening pain in their neck with radiating tingling and burning sensations into their bilateral upper extremities. Patient does also have worsening headaches and tension in her muscles. Patient did have limited range of motion of her cervical spine with a positive Spurling's test. I did discuss with the patient that I do believe they would benefit from a cervical epidural steroid injection. Risk and benefits were discussed with patient and they would like to proceed forward with this plan of care. Patient has tried and failed conservative therapy including oral medications, heat and ice, topicals, at home stretching exercise for longer than 12 weeks that was physician guided. Patient has not had any cervical epidurals in the past. I did review over her updated cervical imaging that did show multilevel degenerative changes most pronounced at the C4-C5 and C5-C6 level with neuroforaminal narrowing. Patient will be scheduled for a DILEEP C5-C6 under fluoroscopy. Patient denies any blood thinners. Patient has been instructed to contact the clinic with any concerns before the next appointment. Dr. Jerome has reviewed this note and agrees with this plan of care. This note was dictated using voice recognition software and make contain errors or omissions. All injections are used with Lidocaine, Bupivacaine and Depo Medrol. Occasionally urine drug screen is needed to verify patient's compliance with our office pain contract. This is ordered based off specific treatments related to chronic pain with the potential to abuse certain medications.
== END 2024-05-17 23:59 | disposition home or self-care (01) ==
LOC: SC.PAIN 14:12
PROVIDERS: PCP Physician Assistant; Visit Provider Nurse Practitioner Family
DX: M50.10 Cervical disc disorder with radiculopathy, unspecified cervical region (principal); M79.18 Myalgia, other site; R51.9 Headache, unspecified; Z73.89 Other problems related to life management difficulty
CPT/HCPCS: 99212; G0463

== ENCOUNTER 2024-06-18 13:59 | Day surgery (SDC) | payer BC, SELFPAY ==
[2024-06-18 14:07] VITALS: BP 134/70; PULSE 75; RESP 18; TEMP 36.9; O2SAT 94; BMI 31.8
[2024-06-18] MEDS: IOPAMIDOL-200 (41%);10ML VIAL 10 ML IV (14:34)
--- NOTE | 2024-06-18 14:42 | P.PCN_ITS ---
Procedure Date: 06/18/24 Time: 14:45 Anesthesiologist:: Hardeep Champion CRNA Complications:: None Pre-procedure Diagnosis:: Degenerative disc cervical spine multilevels. Cervical radiculopathy Post-procedure Diagnosis:: Same Indications for Procedure:: Patient is a very pleasant 59-year-old female who comes our clinic today for cervical epidural steroid injection. Patient describes posterior cervical neck pain is constant, dull, aching. She also reports bilateral shoulder and arm radicular symptoms at times. She rates her pain 7/10. Procedure Details:: Procedure:Cervical epidural steroid injection Informed consent was obtained and the risks and benefits of the procedure were explained to the patient. The patient was taken to the procedure room and noninvasive monitors placed, including noninvasive blood pressure cuff and pulse oximeter. The neck was prepped using Chloraprep as a cleansing solution. The C6- C7 interspace was viewed using fluroscopy. The skin and subcutaneous tissues were anesthetized using lidocaine 1.5% and a 25-gauge needle. After this an 18- gauge Touhy epidural needle was placed into the C6-C7 interspace under fluroscopy guidance and advanced using loss of resistance to air until the epidural space was encountered. After confirmation of needle placement in the epidural space using contrast dye, a solution containing normal saline, 2 mL and Depo-Medrol 80 mg was incrementally injected into the cervical epidural space.~ The patient tolerated the procedure well with no complications. The patient was observed in the Pain Clinic and then discharged home neurologically intact. Plan and Disposition:: Patient was discharged without incident.
[2024-06-18 14:52] VITALS: BP 133/57; PULSE 72; RESP 17; O2SAT 95
[2024-06-18] MEDS: methylPREDNISolone ACETATE 80MG/ML VIAL 80 MG (14:55)
[2024-06-18 14:56] VITALS: BP 144/46; PULSE 70; RESP 18; O2SAT 97
[2024-06-18 14:58] VITALS: BP 144/46; PULSE 70; RESP 18; O2SAT 97
== END 2024-06-18 14:52 | disposition home or self-care (01) ==
PROVIDERS: PCP Physician Assistant; Visit Provider Nurse Anesthetist, Certified Registered
DX: M50.30 Other cervical disc degeneration, unspecified cervical region (principal); M54.12 Radiculopathy, cervical region
CPT/HCPCS: 62321; J1010; Q9966

== ENCOUNTER 2024-07-01 15:16 | Outpatient (POV) | payer BC, SELFPAY ==
[2024-07-01 15:23] VITALS: BP 119/71; PULSE 72; RESP 14; O2SAT 94; BMI 31.8
--- NOTE | 2024-07-01 15:34 | EXP.PAIN.SOA ---
[facility] Disclaimer: The information contained in this section may have been updated after the patient was seen, as this information can be updated by other users. Medical History Hyperlipidemia Hypertension Hypertension Surgical History History of hysterectomy Family History Other Heart attack Hyperlipidemia Hypertension Social History Smoking Status: Never smoker alcohol intake: never substance use type: denies use current occupational status: other Travel in the last 8 weeks: None PM Subjective & Objective Subjective Subjective:: Patient is a pleasant 59-year-old female who presents today for follow-up of cervical epidural steroid injection C6-C7 on 06/18/2024. Today she rates her pain a 0 out of 10. She states she has had at least 90% improvement following this injection and feels like it is still working well. Patient does state that overall it was pretty much immediate for this to kick in. She states that she has been able to move around easier with overall decreased pain. Patient does states she has 1 spot along the right side but does still occasionally have a tingle sensation however it is not constant. She is prescribed compounded cream. Her Woodrow has been reviewed and is appropriate. Review of Systems: General: No recent weight changes, no fever, no sleep disturbances Respiratory: No cough, no shortness of air, no recurring pulmonary infections Cardiovascular/peripheral vascular: No chest pain, no palpitations, no edema, no shortness of breath Gastrointestinal: No new onset incontinence, normal bowel movements reported Genitourinary: No new onset incontinence Musculoskeletal: Neck pain Psychiatric: [Normal mood/affect] Neurological: [Denies weakness in extremities], [denies balance issues] Pain at rest (0-10 scale): 0 Objective Objective:: Physical Exam: General: Alert and oriented x3, no acute distress, pleasant and cooperative Lungs: Respirations even and unlabored, symmetrical chest expansion Eyes: PERRL Musculoskeletal: Flexion and extension of cervical [spine] within normal limits Neurological: Speech clear, no gross sensory deficit Has patient had previous pain injection?: Yes Percent improvement in pain since last injection: 90% Conservative treatment options previously tried: Home exercise plan Length of treatment: Longer than 12 weeks Meds Home Medications and Allergies Home Medications ?Medication ?Instructions ?Recorded ?Confirmed ?Type lisinopril 20 1 tab PO DAILY . 05/16/22 07/01/24 History mg-hydrochlorothiazide 12.5 mg tablet potassium chloride 10 mEq 10 meq PO DAILY . 05/16/22 07/01/24 History tablet,extended release rosuvastatin 10 mg tablet 10 mg PO DAILY . 05/16/22 07/01/24 History venlafaxine 37.5 mg tablet 37.5 mg PO DAILY . 05/16/22 07/01/24 History ketorolac 10 mg tablet 10 mg PO Q8H PRN pain 3 days #14 01/23/24 07/01/24 Rx tabs tamsulosin 0.4 mg capsule 0.4 mg PO HS #7 caps 01/23/24 07/01/24 Rx New Prescriptions to Start Prescriptions: Allergies Allergy/AdvReac Type Severity Reaction Status Date / Time No Known Allergies Allergy Verified 06/18/24 14:08 Assessment and Plan *Assessment and plan (1) Cervical radiculopathy: Status: Acute Category: Medical Code(s): M54.12 - Radiculopathy, cervical region (2) Degenerative disc disease, cervical: Status: Acute Category: Medical Code(s): M50.30 - Other cervical disc degeneration, unspecified cervical region Plan Patient has had significant improvement following her cervical epidural and does not require any additional interventions at this time. I will send in a 2-week dose of tizanidine 2 mg 3 times daily as needed. Patient will return to clinic in 6 weeks for reevaluation of symptoms and plan of care. Patient has been instructed to contact the clinic with any concerns before the next appointment. Dr. Jerome has reviewed this note and agrees with this plan of care. This note was dictated using voice recognition software and make contain errors or omissions. All injections are used with Lidocaine, Bupivacaine and Depo Medrol. Occasionally urine drug screen is needed to verify patient's compliance with our office pain contract. This is ordered based off specific treatments related to chronic pain with the potential to abuse certain medications.
== END 2024-07-01 23:59 | disposition home or self-care (01) ==
PROVIDERS: PCP Physician Assistant; Visit Provider Nurse Practitioner Family
DX: M50.10 Cervical disc disorder with radiculopathy, unspecified cervical region (principal)
CPT/HCPCS: 99212; G0463

== ENCOUNTER 2024-08-12 15:21 | Outpatient (POV) | payer BC, SELFPAY ==
[2024-08-12 15:41] VITALS: BP 135/82; PULSE 72; RESP 14; O2SAT 98; BMI 31.8
--- NOTE | 2024-08-12 15:43 | EXP.PAIN.SOA ---
[facility] Disclaimer: The information contained in this section may have been updated after the patient was seen, as this information can be updated by other users. Medical History Hyperlipidemia Hypertension Hypertension Surgical History History of hysterectomy Family History Other Heart attack Hyperlipidemia Hypertension Social History Smoking Status: Never smoker alcohol intake: never substance use type: denies use current occupational status: other Travel in the last 8 weeks?: None PM Subjective & Objective Subjective Subjective:: Patient is a pleasant 59-year-old female who presents today for worsening shoulder pain. Today she rates her pain a 5 out of 10. She denies any new trauma or injury. Patient states that she just feels like her work overall aggravates her shoulder pain. She states it is a constant aching, throbbing sensation that is interfering with her ability perform activities of daily living such as cooking and cleaning. Patient denies any previous shoulder surgeries. Patient has had chronic shoulder pain for some time and it seems to progressively worsen. Patient does also make mention today that she has had a more tension headaches. Patient states that she has had these overall for years. Patient does take Excedrin Migraine. Her Woodrow has been reviewed and is appropriate. Review of Systems: General: No recent weight changes, no fever, no sleep disturbances Respiratory: No cough, no shortness of air, no recurring pulmonary infections Cardiovascular/peripheral vascular: No chest pain, no palpitations, no edema, no shortness of breath Gastrointestinal: No new onset incontinence, normal bowel movements reported Genitourinary: No new onset incontinence Musculoskeletal: Bilateral shoulder pain, tension headaches Psychiatric: [Normal mood/affect] Neurological: [Denies weakness in extremities], [denies balance issues] Pain at rest (0-10 scale): 5 Objective Objective:: Physical Exam: General: Alert and oriented x3, no acute distress, pleasant and cooperative Lungs: Respirations even and unlabored, symmetrical chest expansion Eyes: PERRL Musculoskeletal: Flexion and extension of bilateral shoulders somewhat guarded secondary to pain, bilateral popping and clicking noted with flexion and extension Neurological: Speech clear, no gross sensory deficit Has patient had previous pain injection?: No Conservative treatment options previously tried: Home exercise plan Length of treatment: Longer than 12 weeks Meds Home Medications and Allergies Home Medications ?Medication ?Instructions ?Recorded ?Confirmed ?Type lisinopril 20 1 tab PO DAILY . 05/16/22 07/01/24 History mg-hydrochlorothiazide 12.5 mg tablet potassium chloride 10 mEq 10 meq PO DAILY . 05/16/22 07/01/24 History tablet,extended release rosuvastatin 10 mg tablet 10 mg PO DAILY . 05/16/22 07/01/24 History venlafaxine 37.5 mg tablet 37.5 mg PO DAILY . 05/16/22 07/01/24 History ketorolac 10 mg tablet 10 mg PO Q8H PRN pain 3 days #14 01/23/24 07/01/24 Rx tabs tamsulosin 0.4 mg capsule 0.4 mg PO HS #7 caps 01/23/24 07/01/24 Rx tizanidine 2 mg tablet See Rx Instructions .Route 07/26/24 Rx .COMPLEX #90 tabs New Prescriptions to Start Prescriptions: Allergies Allergy/AdvReac Type Severity Reaction Status Date / Time No Known Allergies Allergy Verified 06/18/24 14:08 Assessment and Plan *Assessment and plan (1) Bilateral shoulder pain: Status: Acute Category: Medical Code(s): M25.511 - Pain in right shoulder; M25.512 - Pain in left shoulder Plan Patient is experiencing worsening pain in her bilateral shoulders with limited range of motion and did have popping and clicking with flexion extension during today's visit. I did discuss with the patient that I do believe she would benefit from bilateral shoulder intra-articular shoulder injections. Risk and benefits were discussed with the patient and she would like to proceed forward with this plan of care. Patient has tried and failed oral medications, heat and ice, topicals, at home stretching exercise for longer than 12 weeks. Patient has had chronic shoulder pain for longer than 3 months. Patient was also counseled due to her complaints of tension headache that there are prescription medications that may be beneficial. Patient was counseled that I will send her for referral for Dr. Encarnacion's office. Patient was also recently given tizanidine 2 mg however she states it did cause drowsiness but it did really help her sleep. Patient is also still using her compounded cream. Patient will be scheduled for bilateral shoulder intra-articular injections. These will be done without fluoroscopic or ultrasound guidance. Patient has been instructed to contact the clinic with any concerns before the next appointment. Dr. Jerome has reviewed this note and agrees with this plan of care. This note was dictated using voice recognition software and make contain errors or omissions. All injections are used with Lidocaine, Bupivacaine and dexamethasone. Occasionally urine drug screen is needed to verify patient's compliance with our office pain contract. This is ordered based off specific treatments related to chronic pain with the potential to abuse certain medications.
== END 2024-08-12 23:59 | disposition home or self-care (01) ==
LOC: SC.PAIN 15:24
PROVIDERS: PCP Physician Assistant; Visit Provider Nurse Practitioner Family
DX: M25.511 Pain in right shoulder (principal); M25.512 Pain in left shoulder; G44.209 Tension-type headache, unspecified, not intractable
CPT/HCPCS: 99212; G0463

== ENCOUNTER 2024-09-03 14:25 | Day surgery (SDC) | payer BC, SELFPAY ==
[2024-09-03 14:39] VITALS: BP 125/65; PULSE 72; RESP 18; O2SAT 93; BMI 31.8
[2024-09-03] MEDS: LIDOCAINE 1% 5ML PF VIAL 5 ML (15:03)
[2024-09-03] MEDS: BUPIVACAINE 0.25% 10ML INJ 25 MG IJ (15:03)
[2024-09-03 15:04] VITALS: BP 139/60; PULSE 71; RESP 18; O2SAT 95
[2024-09-03] MEDS: DEXAMETHASONE 10MG/ML 1ML VIAL 10 MG (15:04)
[2024-09-03 15:05] VITALS: BP 139/60; PULSE 71; RESP 18; O2SAT 95
--- NOTE | 2024-09-03 15:06 | EXP.PAIN.PRO ---
Procedure Date: 09/03/24 Time: 15:00 Anesthesiologist:: Hardeep Champion CRNA Complications:: None Pre-procedure Diagnosis:: DJD bilateral shoulder. Chronic bilateral shoulder pain. Post-procedure Diagnosis:: Same Indications for Procedure:: Patient is a pleasant 59-year-old female who comes our clinic today for bilateral intra-articular shoulder injections of cortisone local anesthetic. Patient describes bilateral shoulder pain as constant, dull, aching. She has difficulty with range of motion as secondary to shoulder pain. She has 5/5 strength in bilateral upper extremities. She rates her pain 7/10. Procedure Details:: Procedure Details: Left shoulder intra-articular injection Informed consent was obtained risk and benefits of the procedure were explained to the patient. Patient was taken to the procedure room. The Left shoulder was prepped using ChloraPrep. A 25-gauge needle was used posteriorly to inject 10 mL bupivacaine 0.25% and 10 mg of dexamethasone. Patient tolerated procedure well with no complications. Procedure Details: Right shoulder intra-articular injection Informed consent was obtained risk and benefits of the procedure were explained to the patient. Patient was taken to the procedure room. The right shoulder was prepped using ChloraPrep. A 25-gauge needle was used posteriorly to inject 10 mL bupivacaine 0.25% and 10 mg of dexamethasone. Patient tolerated procedure well with no complications. Plan and Disposition:: Patient was discharged without incident.
[2024-09-03 15:14] VITALS: BP 127/66; PULSE 64; RESP 18; O2SAT 97
== END 2024-09-03 15:14 | disposition home or self-care (01) ==
PROVIDERS: PCP Physician Assistant; Visit Provider Nurse Anesthetist, Certified Registered
DX: M19.012 Primary osteoarthritis, left shoulder (principal); M19.011 Primary osteoarthritis, right shoulder; E78.5 Hyperlipidemia, unspecified; I10 Essential (primary) hypertension; Z79.899 Other long term (current) drug therapy
CPT/HCPCS: 20610; J0665; J1100; J2003

== ENCOUNTER 2024-09-26 15:02 | Outpatient (POV) | payer BC, SELFPAY ==
--- OUTSIDE RECORDS SUMMARY | 2024-03-15 09:15 | XMS_ITS ---
Author Organization [facility] Address [address] [facility] [address] [place], [place] [id number] Care Team Providers Care Printmaker Name Role Phone Owen Brown Primary Care Provider [phone] Meg Evans [phone] Allergies No Known Allergies REASON FOR VISIT 2 month and labs, Needs flu vaccine Encounters Encounter Location Date Provider Diagnosis [facility] [address] [facility] [address] [place] [id number] 03/15/2024 Meg Evans Plan Of Treatment No Information Progress Notes * NAIF ROSADODOB:1965 ( 59 yo F)Acc No.[id number]:03/15/2024 Progress Notes 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 * Family [...] * Electronic signature of REJI Hayes on 09/26/2024 at 03:26 PM EDT Sign off status: Pending * Provider: REJI Obando Date: 0 03/15/2024 Generated for Debbie ceballos/Ame/Arturoitting on: 0 09/26/2024 03:26 PM EDT History and Physical Notes * HPI (History of Present Illness) Category Sub-Category Detail Notes Category Not es HPI Patient is here today for Pt is here today for a 2 month check up and labs
--- OUTSIDE RECORDS SUMMARY | 2024-03-29 11:40 | XMS_ITS ---
Author Organization [facility] Address [address] [place] [id number] Care Team Providers Care Golf Club Manager Name Role Phone Owen Brown Primary Care Provider Meg Evans Unavailable [phone] Allergies No Known Allergies Results Component Value Reference Range Notes P-Basic Metabolic Panel (BMP ) Reviewed date:04/03/2024 11:28:01 AM Interpretation:gluc 105, bun 22 Performing Lab: Notes/Report: Test performed by [facility], [employer] [address] [place] [address] , [address], [place] [address] Geronimo Mcdonnell MD, Printing Services Coordinator CLIA: [id number] Sodium 142 135-145 mmol/L Potassium 4.2 3.5-5.3 [...] W/U Status Risk Notes Problem Essential hypertension (18853163) Essential hypertension (I10) Active confirmed Vital Signs Weight 170.4 lbs 03/29/2024 Blood pressure systolic 120 mm Hg 03/29/19 Blood pressure diastolic 84 mm Hg 025 Heart Rate 83 /min 03/29/2024 Height 62 in 03/29/2024 BMI 31.16 kg/m2 03/29/2024 Encounters Encounter Location Date Provider Diagnosis [facility] [address] [facility] [address] [place] [phone] 03/29/2024 Meg Evans Lower extremity elizabeth a [...] rt test results, Reason: Progress Notes * EFRAÍN NAIFDOB:1965 ( 59 yo F)Acc No.[id number]:03/29/2024 Progress Notes 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 * Procedure Codes: * Electronic signature of REJI Hayes on 09/26/2024 at 03:27 PM EDT Sign off status: Pending * Provider: REJI Obando Date: 03/29/2024 Generated for Esdrasi ng/Fazenaidag/eTransmitting on: 0 09/26/2024 03:27 PM EDT History and Physical Notes * [...]
--- OUTSIDE RECORDS SUMMARY | 2024-09-26 15:26 | XMS_ITS | Clinical Summary ---
Author Organization Healthcare Address [address] [place] [address] Care Team Providers Care Starchmaker Name Role Phone Unavailable Primary Care Provider Unavailabl e Family History Medical History Relation Name Comments Arthritis Other 1 Rheum arthritis Other 2 Relation Name Status Comments Other 1 Other 2 Social History Tobacco Use Types Packs/Day Years Used Date Smoking Tobacco: Never Alcohol Use Standard Drinks/Week Comments No 0 (1 standard drink = 0.6 oz pur e alcohol) Comments Unknown Sex and Gender Information Value Date Recorded Sex Assigned at Not on file Legal Sex Female 6:39 PM EDT Gender Identity Not on file Sexual Orientation Not on file Last Filed Vital Signs Vital Sign Reading Time Taken Comments Blood Pressure - - Pulse - - Temperature - - Respiratory Rate - - Oxygen Saturation - - Inhaled Oxygen Concentration - - Weight 75.3 kg (166 lb 0.1 oz) 10/22/2013 10:43 AM EDT Height 152.4 cm (5') 10/22/2013 10:43 AM EDT Body Mass Index 32.42 10/22/2013 10:43 AM EDT Plan of Treatment Not on file
--- NOTE | 2024-09-26 15:29 | EXP.PAIN.SOA ---
[facility] Disclaimer: The information contained in this section may have been updated after the patient was seen, as this information can be updated by other users. Medical History Hyperlipidemia Hypertension Hypertension Surgical History History of hysterectomy Family History Other Heart attack Hyperlipidemia Hypertension Social History Smoking Status: Never smoker alcohol intake: never substance use type: denies use current occupational status: other Travel in the last 8 weeks?: None PM Subjective & Objective Subjective Subjective:: Patient is a pleasant 59-year-old female who presents today for follow-up of her bilateral intra-articular shoulder injections on 09/03/2024. Patient does state that she did get significant relief of at least 50%. Patient is complaining today however of more tenderness in and around her left shoulder muscle area. Patient does state the pain is interfering with her ability to perform activities of daily living such as cooking and cleaning. Patient is asking if there are additional options we can do for this pain. Patient is prescribed compounded cream and states it does help. She is also prescribed tizanidine 2 mg at bedtime. Her Woodrow has been reviewed and is appropriate. Review of Systems: General: No recent weight changes, no fever, no sleep disturbances Respiratory: No cough, no shortness of air, no recurring pulmonary infections Cardiovascular/peripheral vascular: No chest pain, no palpitations, no edema, no shortness of breath Gastrointestinal: No new onset incontinence, normal bowel movements reported Genitourinary: No new onset incontinence Musculoskeletal: Left shoulder pain Psychiatric: [Normal mood/affect] Neurological: [Denies weakness in extremities], [denies balance issues] Pain at rest (0-10 scale): 7 Objective Objective:: Physical Exam: General: Alert and oriented x3, no acute distress, pleasant and cooperative Lungs: Respirations even and unlabored, symmetrical chest expansion Eyes: PERRL Musculoskeletal: Flexion and extension of left shoulder somewhat guarded secondary to pain, point tenderness noted along left trapezius Neurological: Speech clear, no gross sensory deficit Has patient had previous pain injection?: Yes Percent improvement in pain since last injection: 50% Conservative treatment options previously tried: Home exercise plan Length of treatment: Longer than 12 weeks Meds Home Medications and Allergies Home Medications ?Medication ?Instructions ?Recorded ?Confirmed ?Type lisinopril 20 1 tab PO DAILY . 05/16/22 09/03/24 History mg-hydrochlorothiazide 12.5 mg tablet potassium chloride 10 mEq 10 meq PO DAILY . 05/16/22 09/03/24 History tablet,extended release rosuvastatin 10 mg tablet 10 mg PO DAILY . 05/16/22 09/03/24 History venlafaxine 37.5 mg tablet 37.5 mg PO DAILY . 05/16/22 09/03/24 History ketorolac 10 mg tablet 10 mg PO Q8H PRN pain 3 days #14 01/23/24 09/03/24 Rx tabs tamsulosin 0.4 mg capsule 0.4 mg PO HS #7 caps 01/23/24 09/03/24 Rx tizanidine 2 mg tablet See Rx Instructions .Route 08/28/24 09/03/24 Rx .COMPLEX #90 tabs New Prescriptions to Start Prescriptions: Allergies Allergy/AdvReac Type Severity Reaction Status Date / Time No Known Allergies Allergy Verified 06/18/24 14:08 Assessment and Plan *Assessment and plan (1) Myofascial pain: Status: Acute Category: Medical Code(s): M79.18 - Myalgia, other site (2) Bilateral shoulder pain: Status: Acute Category: Medical Code(s): M25.511 - Pain in right shoulder; M25.512 - Pain in left shoulder Plan Patient continues to have significant pain with palpation along her left shoulder during today's visit. We had discussed prior to her intra-articular injections that she may benefit from trigger point injections. Today I have reviewed over again that I do think she would benefit from this option. Risk and benefits were discussed with the patient and she would like to proceed forward with this plan of care. I will also increase her compounded cream concentration. Patient will be scheduled for left trapezius trigger point injections. These will be done without fluoroscopic or ultrasound guidance. Patient has been instructed to contact the clinic with any concerns before the next appointment. Dr. Jerome has reviewed this note and agrees with this plan of care. This note was dictated using voice recognition software and make contain errors or omissions. All injections are used with Lidocaine, Bupivacaine and dexamethasone. Occasionally urine drug screen is needed to verify patient's compliance with our office pain contract. This is ordered based off specific treatments related to chronic pain with the potential to abuse certain medications.
[2024-09-26 15:44] VITALS: BP 121/73; PULSE 79; RESP 18; O2SAT 94; BMI 70.2
== END 2024-09-26 23:59 | disposition home or self-care (01) ==
LOC: SC.PAIN 15:03
PROVIDERS: PCP Physician Assistant; Visit Provider Nurse Practitioner Family
DX: M79.18 Myalgia, other site (principal); M25.511 Pain in right shoulder; M25.512 Pain in left shoulder; Z79.899 Other long term (current) drug therapy
CPT/HCPCS: 99212; G0463

== ENCOUNTER 2024-10-25 11:43 | Day surgery (SDC) | payer BC, SELFPAY ==
[2024-10-25 11:57] VITALS: BP 120/70; PULSE 71; RESP 18; O2SAT 97; BMI 31.8
--- NOTE | 2024-10-25 12:16 | P.PCN_ITS ---
Procedure Date: 10/25/24 Time: 12:28 Anesthesiologist:: Anel Osborn APRN Complications:: None Pre-procedure Diagnosis:: Bilateral shoulder pain, myofascial pain of left trapezius, degenerative disc disease of cervical spine with cervical radiculopathy Post-procedure Diagnosis:: Same Indications for Procedure:: Patient is a pleasant 59-year-old female who presents today for trigger point injections of her left trapezius. She rates her pain today a 6 out of 10. She denies any new trauma or injury. She is still stating that she still having a lot of tenderness there at her left shoulder. Her Woodrow has been reviewed and is appropriate. Physical Exam: General: Alert and oriented x3, no acute distress, pleasant and cooperative Lungs: Respirations even and unlabored, symmetrical chest expansion Eyes: PERRL Musculoskeletal: Flexion and extension of left shoulder somewhat guarded secondary to pain, [antalgic gait noted] Neurological: Speech clear, no gross sensory deficit Procedure Details:: Patient did have noninvasive blood pressure cuff applied and pulse oximeter. Patient was placed in a sitting position and palpated along her left trapezius muscles. Areas of point tenderness were marked and using a sterile 25-gauge n eedle approximately 10 mL of 0.25% bupivacaine, 1% lidocaine and 10 mg dexamethasone were incrementally injected into her left trapezius muscles. Needle was removed and sterile bandages applied. Patient tolerated the procedure well with no complications and was discharged neurologically intact. Plan and Disposition:: Patient tolerated the procedure well with no complications and was discharged neurologically intact. Pt rates her pain a 0/10 following the injections. Patient will return to clinic in 2 weeks for follow-up and to gauge efficacy. Patient has been instructed to contact the clinic with any concerns before the next appointment. Dr. Jerome has reviewed this note and agrees with this plan of care. This note was dictated using voice recognition software and make contain errors or omissions. All injections are used with Lidocaine, Bupivacaine and dexamethasone. Occasionally urine drug screen is needed to verify patient's compliance with our office pain contract. This is ordered based off specific treatments related to chronic pain with the potential to abuse certain medications.
[2024-10-25 12:30] VITALS: BP 144/69; PULSE 70; RESP 18; O2SAT 98
[2024-10-25] MEDS: BUPIVACAINE 0.25% 10ML INJ 25 MG IJ (12:42)
[2024-10-25] MEDS: DEXAMETHASONE 10MG/ML 1ML VIAL 10 MG (12:43)
[2024-10-25] MEDS: LIDOCAINE 1% 5ML PF VIAL 5 ML (12:43)
[2024-10-25 12:45] VITALS: BP 120/70; PULSE 71; RESP 18; O2SAT 97
[2024-10-25 12:47] VITALS: BP 120/70; PULSE 71; RESP 18; O2SAT 97
== END 2024-10-25 12:30 | disposition home or self-care (01) ==
PROVIDERS: PCP Physician Assistant; Visit Provider Nurse Practitioner Family
DX: M25.512 Pain in left shoulder (principal); M25.511 Pain in right shoulder; M79.18 Myalgia, other site; E78.5 Hyperlipidemia, unspecified; I10 Essential (primary) hypertension; Z79.899 Other long term (current) drug therapy
CPT/HCPCS: 20552; J0665; J1100; J2003

== ENCOUNTER 2025-01-24 12:31 | Outpatient (CLI) | payer BC, SELFPAY ==
--- OUTSIDE RECORDS SUMMARY | 2023-11-10 05:15 | XMS_ITS ---
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 Name Role Phone Owen Brown Primary Care Provider [phone] CristinaMeg Unavailable [phone] REASON FOR VISIT neck and shoulder pain Medications Medication SIG (Take, Route, Frequency, Duration) Notes Start Date End Date Status Medrol 4 MG as directed orally daily; Duration: 6 days 11/10/2023 Active Lisinopril-hydroCHLOROth iazide 20-25 MG 1 tablet Orally Once a day; Duration: 90 days Active tiZANidine HCl 4 MG TAKE 1 TABLET BY CYNTHIA TH ONCE DAILY AT BEDTIME FOR 30 DAYS; Duration: 30 Active Nurtec 75 MG ALLOW 1 TABLET TO DISSOLVE ON THE TONGUE ONCE DAILY; Duration: 30 Active Venlafaxine HCl 37.5 MG Take 1 tablet by mouth once daily; Duration: 90 Active Potassium Chloride ER 10 MEQ Take 1 tablet by mouth twice daily; Duration: 90 Active Meloxicam 15 MG Take 1 tablet by cynthia th once daily; Duration: 90 Active Rosuvastatin Calcium 10 MG 1 tab(s) orally once a day; Duration: 90 days Active Zepbound 2.5 MG/0.5ML 2.5 mg Subcutaneou s once a week 09/19/2023 Active Zepbound 2.5 MG/0.5ML 2.5 mg Subcutaneou s once a week 09/15/2023 Active Align - as directed Orally N ot-Taking Coenzyme Q10 200 MG as directed orally o nce a day; Duration: 30 day(s) 11/29/2021 Not-Taking FiberCon 625 MG 2 tablets as needed Orally Three times a day Not-Romulo ing Topiramate 50 MG TAKE 1 TABLET BY CYNTHIA TH AT BEDTIME; Duration: 90 days Active Vital Signs Blood pressure systolic 120 mm Hg 11/10/19 24 Blood pressure diastolic 80 mm Hg 024 Heart Rate 91 /min 11/10/2023 Height 62 in 11/10/2023 Weight 167.2 lbs 11/10/2023 BMI 30.58 kg/m2 11/10/2023 Encounters Encounter Location Date Provider Diagnosis [facility] [address] [place] [id number] 11/10/2023 Meg Cristina Neck muscle spasm M62.838 and Frequent headaches R51.9 Assessments Encounter Date Diagnosis (ICD Code) Assessment Notes Treatment Notes Treatment Clinical Notes Section Notes 11/10/2023 Neck muscle spasm (ICD-10 - M62.838) 11/10/2023 Frequent headaches (ICD-10 - R51.9) Headaches are likely caused by her neck muscle spasm. Gave exercises to do at home and will apply voltaren and get a neck massager. If this does not help, will get imaging and start PT. Plan Of Treatment Medication Medication Name Sig Start Date Stop Date Notes Medrol 4 MG as directed orally daily; Duration: 6 days Treatment Notes Assessment Notes Frequent headaches Headaches are likely caused by her neck muscle spasm. Gave exercises to do at home and will apply voltaren and get a neck massager. If this does not help, will get imaging and start PT. Next Appt Details Follow Up: prn, Reason: Progress Notes * NAIF ROSADODOB:1965 ( 59 yo F)Acc No.[id number]:11/10/2023 Progress Notes Patient: NAIF STRINGER Provider: REJI Obando :1965 A ge:58 Y S ex:Female Date:11/10/2023 Address:[address] [place], [place] [id number] Pcp:Owen Brown Subjective: * Chief Complaints: * 1 . Neck and shoulder pain. * HPI: S houlder/Upper arm: 58 year old female presents with c/o shoulder pain P t presents today for neck and shoulder pain. Pt sts she is having pain in the back part of her neck and both sides of her shoulders. Pt sts it has been giving her headaches as well. Pt sts it is worse with movement and when she pushes on it. Pt sts it also hurts her in the upper area of her back and this has been ongoing for her for a few months. N tarun: c/o pain. U pper back: c/o radiation of pain. * Medical History: C OVID 19 vaccine, May/Jun 2020, Blepharitis. * Surgical History: p artial hysterectomy 2001. * Hospitalization/Major Diagno stic Procedure: c [facility] [place] [facility] [place] * Family History: F ather: . M other: alive, diagnosed with Hypertension. 2 brother(s) , 2 sister(s) - healthy. 2 son(s) - healthy. . * Social History: C URRENT TOBACCO USE: No . C affeine: no. Marital Status: . Alcohol: no. * Medications: T aking Topiramate 50 MG Tablet TAKE 1 TABLET BY MOUTH AT BEDTIME , Taking Potassium Chloride ER 10 MEQ Tablet Extended Release Take 1 tablet by mouth twice daily , Taking Rosuvastatin Calcium 10 MG Tablet 1 tab(s) orally once a day , Taking Meloxicam 15 MG Tablet Take 1 tablet by mouth once daily , Taking Zepbound 2.5 MG/0.5ML Solution Auto-injector 2.5 mg Subcutaneous once a week , Taking Zepbound 2.5 MG/0.5ML Solution Auto-injector 2.5 mg Subcutaneous once a week , Taking Venlafaxine HCl 37.5 MG Tablet Take 1 tablet by mouth once daily , Taking tiZANidine HCl 4 MG Tablet TAKE 1 TABLET BY MOUTH ONCE DAILY AT BEDTIME FOR 30 DAYS , Taking Lisinopril-hydroCHLOROthiazide 20-25 MG Tablet 1 tablet Orally Once a day , Taking Nurtec 75 MG Tablet Disintegrating ALLOW 1 TABLET TO DISSOLVE ON THE TONGUE ONCE DAILY , Not-Taking Align - Capsule as directed Orally , Not-Taking FiberCon 625 MG Tablet 2 tablets as needed Orally Three times a day , Not-Taking Coenzyme Q10 200 MG Capsule as directed orally once a day , Medication List reviewed and reconciled with the patient Objective: * Vitals: W t:167.2, Temp:98.4, BP:120/80, HR:91, Nurse:MACARIO, Ht: 62, BMI:30.58. * Examination: N tarun: Vertebral spine tenderness: absent. P araspinal muscle spasm: absent bilaterally. R andrea of motion of neck: limited in all directions.?Trapezius tenderness: p resent bilaterally, at spinal insertion, at the base of the skull, at shoulder. S houlder joint: normal ROM. R eflexes: 2 plus bilaterally. S ensations: n ormal bilaterally. M otor strength: n ormal. Assessment: * Assessment: 1. N tarun muscle spasm - M62.838 (Primary) 2 . F requent headaches - R51.9? Plan: * Treatment: 2. F requent headaches Notes: Headaches are likely caused by her neck muscle spasm. Gave exercises to do at home and will apply voltaren and get a neck massager. If this does not help, will get imaging and start PT. ? * Follow Up: p rn * Images: Billing Information: * Visit Code: 98413 Office Visit, Est Pt., Level 3. * Procedure Codes: * Electronic signature of REJI Hayes on 01/24/2025 at 12:35 PM EST Sign off status: Pending * Provider: REJI Obando Date: 0 11/10/2023 Generated for Debbie ceballos/Ame/eTransmitting on: 03/26/2024 12:35 PM EST History and Physical Notes * HPI (History of Present Illness) Category Sub-Category Detail Notes Category Not es Neck pain Upper back radiation of pain Shoulder/Upper arm shoulder pain Pt presents t matt for neck and shoulder pain. Pt sts she is having pain in the back part of her neck and both sides of her shoulders. Pt sts it has been giving her headaches as well. Pt sts it is worse with movement and when she pushes on it. Pt sts it also hurts her in the upper area of her back and this has been ongoing for her for a few months Examination Category Sub-Category Detail Notes Category Not es Neck Vertebral spine tenderness: absent Paraspinal muscle spasm: absent bilatera lly Range of motion of neck: limited in all directions Trapezius tenderness: present bilaterall y, at spinal insertion, at the base of the skull, at shoulder Shoulder joint: normal ROM Reflexes: 2 plus bilaterally Sensations: normal bilaterally Motor strength: normal
--- OUTSIDE RECORDS SUMMARY | 2023-12-08 05:45 | XMS_ITS ---
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 Name Role Phone Owen Brown Primary Care Provider AubreyMeg figueroa Unavailable [phone] Allergies No Known Allergies Results Component Value Reference Range Notes X ray : Spine, lumbar Reviewed date:12/14/2023 08:12:37 AM Interpretation: Performing Lab: Notes/Report: X ray : Spine, sacrum and co ccyx Reviewed date:12/14/2023 08:12:29 AM Interpretation:degenerative changes Performing Lab: Notes/Report: degenerative changes REASON FOR VISIT headache from fall, f/u ER Medications Medication SIG (Take, Route, Frequency, Duration) Notes Start Date End Date Status Lisinopril-hydroCHLOROthia zide 20-25 MG 1 tablet Orally Once a day; Duration: 90 days Active Nurtec 75 MG ALLOW 1 TABLET TO DI SSOLVE ON THE TONGUE ONCE DAILY; Duration: 30 Active Potassium Chloride ER 10 MEQ Take 1 tablet by mouth twice daily; Duration: 90 Active tiZANidine HCl 4 MG TAKE 1 TABLET BY CYNTHIA TH ONCE DAILY AT BEDTIME FOR 30 DAYS; Duration: 30 Active Rosuvastatin Calcium 10 MG 1 tab(s) oral ly once a day; Duration: 90 days Active Topiramate 50 MG TAKE 1 TABLET BY CYNTHIA TH AT BEDTIME; Duration: 90 days Activ e Meloxicam 15 MG Take 1 tablet by cynthia th once daily; Duration: 90 Active Zepbound 2.5 MG/0.5ML 2.5 mg Subcutaneou s once a week 09/19/2023 Active Venlafaxine HCl 37.5 MG Take 1 tablet by mouth once daily; Duration: 90 Active Vital Signs Blood pressure systolic 122 mm Hg 12/08/19 24 Blood pressure diastolic 80 mm Hg 024 Heart Rate 76 /min 12/08/2023 Height 62 in 12/08/2023 Weight 166 lbs 12/08/2023 BMI 30.36 kg/m2 12/08/2023 Encounters Encounter Location Date Provider Diagnosis [facility] [address] [place], [place] [id number] 12/08/2023 Meg Evans Laceration of scalp without foreign body, subsequent encounter S01.01XD and Acute midline low back pain without sciatica M54.50 Assessments Encounter Date Diagnosis (ICD Code) Assessment Notes Treatment Notes Treatment Clinical Notes Section Notes 12/08/2023 Laceration of scalp without foreign body, subsequent encounter (ICD-10 - S01.01XD) Will return for staple removal. 12/08/2023 Acute midline low back pain without sciatica (ICD-10 - M54.50) Plan Of Treatment Treatment Notes Assessment Notes Laceration of scalp without foreign body, subsequent encounter Will return for staple removal. 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 headache from fall, f/u ER. * HPI: H PI: 58 year old female presents with c/o Here for follow up on:?12/06/2023 [facility] er visit. Pt went to er for fall, states she hit the back of her head and had to get 5 sabiha. Pt complains of ongoing headache and tailbone pain. * ROS: D ERMATOLOGY: no R jelena. n o H esperanza. G ASTROENTEROLOGY: no N ausea. n o V omiting. U ROLOGY: no D ifficulty urinating. n o B lood in urine. * Medical History: B lepharitis. * Surgical History: p artial hysterectomy 2001. * Hospitalization/Major Diagno stic Procedure: c [facility] - partial hysterectomy 2001, [facility] [place] - left leg pain 09/06/2020. * Family History: F ather: . M other: alive, diagnosed with Hypertension. 2 brother(s) , 2 sister(s) - healthy. 2 son(s) - healthy. . * Social History: C URRENT TOBACCO USE: No . C affeine: no. Marital Status: . Alcohol: no. * Medications: T aking Topiramate 50 MG Tablet TAKE 1 TABLET BY MOUTH AT BEDTIME , Taking Rosuvastatin Calcium 10 MG Tablet 1 tab(s) orally once a day , Taking Meloxicam 15 MG Tablet Take 1 tablet by mouth once daily , Taking Zepbound 2.5 MG/0.5ML Solution Auto- injector 2.5 mg Subcutaneous once a week , [...] DISSOLVE ON THE TONGUE ONCE DAILY , Taking Potassium Chloride ER 10 MEQ Tablet Extended Release Take 1 tablet by mouth twice daily , Discontinued Align - Capsule as directed Orally , Discontinued FiberCon 625 MG Tablet 2 tablets as needed Orally Three times a day , Discontinued Coenzyme Q10 200 MG Capsule as directed orally once a day , Discontinued Medrol 4 MG Tablet Therapy Pack as directed orally daily , Medication List reviewed and reconciled with the patient * Allergies: N .K.D.A. Objective: * Vitals: W t:166, Temp:98.0, BP:122/80, HR:76, Nurse:royce, Ht: 62, BMI:30.36. * Examination: G eneral Examination: General Appearance: N AD. H EENT: u nremarkable.?Oral cavity: n o lesions, mucosa moist and WNL, no erythema. N tarun: s upple, no lymphadenopathy. C hest: n ormal shape and expansion. H eart: R SR. L ungs: c lear to auscultation. A bdomen: bowel sounds present, soft and nontender, no organomegaly or masses, no guarding or rigidity. N eurologic Exam: I ntact, gait normal. S kin: l eft side of scalp with [address]. P eripheral pulses: n ormal (2+) bilaterally. B ack: ttp along the lumbar spine and coccyx. E xtremities: n o leg edema. ? Assessment: * Assessment: 1. L aceration of scalp without foreign body, subsequent encounter - S01.01XD (Primary) ? 2 . A cute midline low back pain without sciatica - M54.50 Plan: * Treatment: 2. A cute midline low back pain without sciatica I maging: X ray : Spine, lumbar (Performed Date - 12/08/2023) ?Imaging: X ray : Spine, sacrum and coccyx (Performed Date - 12/08/2023)? degenerative changes* Meg Evans 12/12/2023 10 :41:02 AM > see TE * Follow Up: v ia phone to report test results * Images: Billing Information: * Visit Code: 66204 Office Visit, Est Pt., Level 4. * Procedure Codes: * Electronic signature of REJI Hayes on 01/24/2025 at 12:34 PM EST Sign off status: Pending * Provider: REJI Obando Date: 0 12/08/2023 Generated for Esdrasi ng/Ame/eTransmitting on: 03/26/2024 12:34 PM EST History and Physical Notes * HPI (History of Present Illness) Category Sub-Category Detail Notes Category Not es HPI Here for follow up on: 4 [facility] er visit. Pt went to er for fall, states she hit the back of her head and had to get 5 sabiha. Pt complains of ongoing headache and tailbone pain Examination Category Sub-Category Detail Notes Category Not es General Examination HEENT: unremarkable Heart: RSR Lungs: clear to auscultatio n Abdomen: bowel sounds present , soft and nontender, no organomegaly or masses, no guarding or rigidity Extremities: no leg edema General Appearance: NAD Skin: left side of scalp w ith [address] Neurologic Exam: Intact, gait normal Neck: supple, no lymphaden opathy Oral cavity: no lesions, mucosa m oist and WNL, no erythema Peripheral pulses: normal (2+) bilatera lly Back: ttp along the lumbar spine and coccyx Chest: normal shape and exp ansion
--- OUTSIDE RECORDS SUMMARY | 2023-12-15 08:15 | XMS_ITS ---
Author Organization [facility] Address [address] [facility] [address] [id number] Care Team Providers Care Belt Line Feeder Name Role Phone Owen Brown Primary Care Provider Meg Evans [phone] Allergies No Known Allergies REASON FOR VISIT 3 Month Check Up, Needs Tdap & flu vaccine Encounters Encounter Location Date Provider Diagnosis [place] [address] [facility] [address] [id number] 12/15/2023 Meg Evans Plan Of Treatment No Information Progress Notes * NAIF ROSADODOB:1965 ( 59 yo F)Acc No.[id number]:12/15/2023 Progress Notes 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 3 Month Check Up. 2. Needs Tdap & flu vaccine. * ROS: D ERMATOLOGY: no R jelena. n o H esperanza. G ASTROENTEROLOGY: no N ausea. n o V omiting. n o D iarrhea.? U ROLOGY: no D ifficulty urinating. n o B lood in urine. * Medical History: B lepharitis. * Surgical History: p artial hysterectomy 2001. * Hospitalization/Major Diagno stic Procedure: c [facility] - partial hysterectomy 2001, [facility] - left leg pain 09/06/2020. * Family History: F ather: . M other: alive, diagnosed with Hypertension. 2 brother(s) , 2 sister(s) - healthy. 2 son(s) - healthy. . * Social History: C URRENT TOBACCO USE: No . C affeine: no. Marital Status: . Alcohol: no. * Allergies: N .K.D.A. Objective: * Vitals: Assessment: Plan: * Treatment: * Images: Billing Information: * Visit Code: * Procedure Codes: * Electronic signature of REJI Hayes on 01/24/2025 at 12:37 PM EST Sign off status: Pending * Provider: REJI Obando Date: Generated for Debbie ceballos/Ame/Juanjose on: 03/26/2024 12:37 PM EST
--- OUTSIDE RECORDS SUMMARY | 2024-01-04 11:30 | XMS_ITS ---
Author Organization [facility] Address [address] [phone] Care Team Providers Care Septic Tank Installer Name Role Phone Owen Brown Primary Care Provider [phone] AubreyMeg figueroa Unavailable [phone] Allergies No Known Allergies Results Component Value Reference Range Notes Glycohemoglobin A1c (in hous e) Reviewed date:01/09/2024 11:19:12 AM Interpretation:5.6 Performing Lab: Notes/Report: 5.6 glycohemoglobin 5.6% 5 - 6.5 % P-Basic Metabolic Panel (BMP ) Reviewed date:01/11/2024 01:21:37 PM Interpretation:gluc 154, bun 23 Performing Lab: Notes/Report: Test performed by [facility] [address] [place] [address] , [address], [place] [address] Geronimo Mcdonnell MD, Collar Turner CLIA: [id number] Sodium 142 135-145 mmol/L Potassium 3.6 3.5-5.3 mmol/L Chloride 104 97-108 mmol/L CO2 26 22-32 mmol/L Glucose 154 65-99 mg/dL BUN 23 6-20 mg/dL Creatinine 0.62 0.50-1.00 mg/dL Calcium 9.2 8.6-10.4 mg/dL eGFR by Creatinine 103 >59 mL/min/1.73m2 Mammogram Reviewed date:01/25/2024 02:40:01 PM Interpretation:Negative, annual f/u Performing Lab: Notes/Report: Negative, annual f/u result Negative, annual f/u REASON FOR VISIT 3 month check up, Needs labs, mammogram due in Jan., & flu vaccine Medications Medication SIG (Take, Route, Frequency, Duration) Notes Start Date End Date Status Cyclobenzaprine HCl 5 MG 1 tablet at bed time as needed Orally Once a day 01/04/2024 Active Potassium Chloride ER 10 MEQ Take 1 tablet by mouth twice daily; Duration: 90 Active Nurtec 75 MG ALLOW 1 TABLET TO DISSOLVE ON THE TONGUE ONCE DAILY; Duration: 30 Not-Taking Lisinopril-hydroCHLOROthiaz dann 20-25 MG 1 tablet Orally Once a day; Duration: 90 days Active Venlafaxine HCl 37.5 MG Take 1 tablet by mouth once daily; Duration: 90 Active Meloxicam 15 MG Take 1 tablet by mouth once daily; Duration: 90 Active Rosuvastatin Calcium 10 MG 1 tab(s) oral ly once a day; Duration: 90 days Active Topiramate 50 MG TAKE 1 TABLET BY MOUTH AT BEDTIME; Duration: 90 days Not-Taking Vital Signs Blood pressure systolic 126 mm Hg 01/04/20 Blood pressure diastolic 68 mm Hg 024 Heart Rate 79 /min 01/04/2024 Height 62 in 01/04/2024 Weight 167.4 lbs 01/04/2024 BMI 30.61 kg/m2 01/04/2024 Encounters Encounter Location Date Provider Diagnosis [place] [facility] [address] [place] [phone] 01/04/2024 Meg Evans Neck muscle spasm M6 2.838 ; Pure hypercholesterolemia E78.00 ; Impaired fasting glucose R73.01 ; Elevated BUN R79.9 and Screening mammogram, encounter for Z12.31 Assessments Encounter Date Diagnosis (ICD Code) Assessment Notes Treatment Notes Treatment Clinical Notes Section Notes 01/04/2024 Neck muscle spasm (ICD-10 - M62.838) 01/04/2024 Pure hypercholesterolemia (ICD-10 - E78.00) Lipids were normal at her work, see patient docs. 01/04/2024 Impaired fasting glu cose (ICD-10 - R73.01) 01/04/2024 Elevated BUN (ICD-10 - R79.9) 01/04/2024 Screening mammogram, encounter for (ICD-10 - Z12.31) Plan Of Treatment Medication Medication Name Sig Start Date Stop Date Notes Cyclobenzaprine HCl 5 MG 1 tablet at bed time as needed Orally Once a day 01/04/2024 Treatment Notes Assessment Notes Pure hypercholesterolemia Lipids were no rmal at her work, see patient docs. Next Appt Details Follow Up: via phone to repo rt test results, Reason: Progress Notes * NAIF ROSADODOB:1965 ( 59 yo F)Acc No.[id number]:01/04/2024 Progress Notes Patient: NAIF STRINGER Provider: REJI Obando :1965 A ge:58 Y S ex:Female Date:01/04/2024 Address:[address] [place], [place] [address], [id number] Pcp:Owen Brown Subjective: * Chief Complaints: * 1 . 3 month check up. 2. Needs labs, mammogram due in Jan., & flu vaccine. * HPI: H PI: 58 year old female presents with c/o Patient is here today for?Pt is here today for a 3 month check up. Pt sts she has been doing well and has no concerns or complaints at this time. * ROS: D ERMATOLOGY: no R jelena. n o H esperanza. G ASTROENTEROLOGY: no N ausea. n o V omiting. n o D iarrhea.? U ROLOGY: no D ifficulty urinating. n o B lood in urine. * Medical History: B lepharitis. * Surgical History: p artial hysterectomy 2001. * Hospitalization/Major Diagno stic Procedure: [facility] - partial hysterectomy 2001, [facility] [place] pain 09/06/2020. * Family History: F ather: . M other: alive, diagnosed with Hypertension. 2 brother(s) , 2 sister(s) - healthy. 2 son(s) - healthy. . * Social History: C URRENT TOBACCO USE: No . C affeine: no. Marital Status: . Alcohol: no. * Medications: T aking Rosuvastatin Calcium 10 MG Tablet 1 tab(s) orally once a day , Taking Meloxicam 15 MG Tablet Take 1 tablet by mouth once daily , Taking Venlafaxine HCl 37.5 MG Tablet Take 1 tablet by mouth once daily , Taking Lisinopril-hydroCHLOROthiazide 20-25 MG Tablet 1 tablet Orally Once a day , Taking Potassium Chloride ER 10 MEQ Tablet Extended Release Take 1 tablet by mouth twice daily , Not-Taking Topiramate 50 MG Tablet TAKE 1 TABLET BY MOUTH AT BEDTIME , Not-Taking Nurtec 75 MG Tablet Disintegrating ALLOW 1 TABLET TO DISSOLVE ON THE TONGUE ONCE DAILY , Medication List reviewed and reconciled with the patient * Allergies: N .K.D.A. Objective: * Vitals: W t:167.4, Temp:98.4, BP:126/68, HR:79, O2 Sat:96% on RA, Nurse:AVIVA, Ht: 62, BMI:30.61. * Examination: G eneral Examination: General Appearance: N AD. H EENT: u nremarkable.?Oral cavity: n o lesions, mucosa moist and WNL, no erythema. N tarun: s upple, no lymphadenopathy, tender along bilateral trapezius muscles (worse on the left) with spasm present. C hest: n ormal shape and expansion. H eart: R SR. L ungs: c lear to auscultation.?Abdomen: bowel sounds present, soft and nontender, no organomegaly or masses, no guarding or rigidity. N eurologic Exam: I ntact, gait normal. S kin: n ormal, no rash. P eripheral pulses: n ormal (2+) bilaterally. E xtremities: n o leg edema. ? Assessment: * Assessment: 1. P ure hypercholesterolemia - E78.00 (Primary) 2 . N tarun muscle spasm - M62.838 3 . I mpaired fasting glucose - R73.01 4 . E levated BUN - R79.9 5 . S creening mammogram, encounter for - Z12.31 Plan: * Treatment: 2. N tarun muscle spasm Start Cyclobenzaprine HCl Tablet, 5 MG, 1 tablet at bedtime as needed, Orally, Once a day, 30, Refills 0. 3. I mpaired fasting glucose L AB: Glycohemoglobin A1c (in house) (Collection Date & Time - 01/04/2024) 5 .6 Value Reference Range g lycohemoglobin 5.6% 5 - 6.5 % * Maureen Wetzel 01/04/2024 5: 14:29 PM >uAbreycarolinaShawnlily Bautista 01/08/2024 11:17:35 PM > Please let pt know her A1C was normalAshlyn Sharp 01/09/2024 11:18:59 AM > Left message informing pt 4.?Elevated BUN?LAB: P-Basic Metabolic Panel (BMP) (Collection Date & Time - 01/04/2024 04:00 PM)?gluc 154, bun 23* Value Reference Range B UN 23 H 6-20 - mg/dL * C alcium 9.2 8.6-10.4 - mg/dL * C hloride 104 97-108 - mmol/L * C O2 26 22-32 - mmol/L * C reatinine 0.62 0.50-1.00 - mg/dL * G lucose 154 H 65-99 - mg/dL * P otassium 3.6 3.5-5.3 - mmol/L * S odium 142 135-145 - mmol/L * e GFR by Creatinine 103 >59 - mL/min/1.73m2 * CristinaShawnlily Bautista 01/11/2024 1 :21:33 PM > see TE 5.?Screening mammogram, encounter for?Imaging: Mammogram (Performed Date - 01/22/2024)?Negative, annual f/u* Value Reference Range r esult Negative, annual f/u * CristinaShawnlily Bautista 01/07/2024 1 0:12:32 PM >Gisselle Shaffer 01/08/2024 9:10:32 AM > faxed to [facility] Maureen Parsons 01/25/2024 2:39:52 PM > , Patient informed of normal results. * Procedure Codes: [address] [place], [address] CAPILLARY BLOOD DRAW, [address] GLYCATED HEMOGLOBIN TEST, Modifiers: QW * Follow Up: v ia phone to report test results * Images: Billing Information: * Visit Code: 73071 Office Visit, Est Pt., Level 4. * Procedure Codes: [address] [place]. [address] CAPILLARY BLOOD DRAW. 286[address] GLYCATED HEMOGLOBIN TEST. Modifiers: QW * Electronic signature of REJI Hayes on 01/24/2025 at 12:36 PM EST Sign off status: Pending * Provider: REJI Obando Date: Generated for Debbie ceballos/Ame/Juanjose on: 03/26/2024 12:36 PM EST History and Physical Notes * HPI (History of Present Illness) Category Sub-Category Detail Notes Category Not es HPI Patient is here today for Pt is here today for a 3 month check up. Pt sts she has been doing well and has no concerns or complaints at this time Examination Category Sub-Category Detail Notes Category Not es General Examination HEENT: unremarkable Heart: RSR Lungs: clear to auscultatio n Abdomen: bowel sounds present , soft and nontender, no organomegaly or masses, no guarding or rigidity Extremities: no leg edema General Appearance: NAD Skin: normal, no rash Neurologic Exam: Intact, gait normal Neck: supple, no lymphaden opathy, tender along bilateral trapezius muscles (worse on the left) with spasm present Oral cavity: no lesions, mucosa m oist and WNL, no erythema Peripheral pulses: normal (2+) bilatera lly Chest: normal shape and exp ansion
--- OUTSIDE RECORDS SUMMARY | 2024-03-15 08:15 | XMS_ITS ---
Author Organization [facility] Address [address] [facility] [address] [place], [place] [id number] Care Team Providers Care Elephant Keeper Name Role Phone Owen Brown Primary Care Provider Meg Evans [phone] Allergies No Known Allergies REASON FOR VISIT 2 month and labs, Needs flu vaccine Encounters Encounter Location Date Provider Diagnosis [facility] [address] 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 2 month and labs. 2. Needs flu vaccine. * HPI: H PI: 58 year old female presents with c/o Patient is here today for?Pt is here today for a 2 month check up and labs. * ROS: D ERMATOLOGY: no R jelena. n o H esperanza. G ASTROENTEROLOGY: no N ausea. n o V omiting. n o D iarrhea.? U ROLOGY: no D ifficulty urinating. n o B lood in urine. * Medical History: B lepharitis. * Surgical History: p artial hysterectomy 2001. * Hospitalization/Major Diagno stic Procedure: c [facility] - partial hysterectomy 2001, [place] [facility] [place] - left leg pain 09/06/2020. * Family [...] Pending * Provider: REJI Obando Date: 0 03/15/2024 Generated for Debbie ceballos/Ame/eTransmitting on: 03/26/2024 12:35 PM EST History and Physical Notes * HPI (History of Present Illness) Category Sub-Category Detail Notes Category Not es HPI Patient is here today for Pt is here today for a 2 month check up and labs
--- OUTSIDE RECORDS SUMMARY | 2024-03-29 10:40 | XMS_ITS ---
Author Organization [facility] Address [address] [id number] Care Team Providers Care Carpet Repairer Name Role Phone Owen Brown Primary Care Provider [phone] Meg Evans Unavailable [phone] Allergies No Known Allergies Results Component Value Reference Range Notes P-Basic Metabolic Panel (BMP ) Reviewed date:04/03/2024 11:28:01 AM Interpretation:gluc 105, bun 22 Performing Lab: Notes/Report: CLIA: [id number] Geronimo Mcdonnell MD, Textile Slitting Machine Operator [id number] [facility] [facility] , [address], [place] [address] Test performed by [employer] [employer] Sodium 142 135-145 mmol/L Potassium 4.2 3.5-5.3 mmol/L Chloride 104 97-108 mmol/L CO2 26 22-32 mmol/L Glucose 105 65-99 mg/dL BUN 22 6-20 mg/dL Creatinine 0.68 0.50-1.00 mg/dL Calcium 9.7 8.6-10.4 mg/dL eGFR by Creatinine 101 >59 mL/min/1.73m2 REASON FOR VISIT ckup & labs, Needs colon cancer screening Medications Medication SIG (Take, Route, Frequency, Duration) Notes Start Date End Date Status Ubrelvy 100 MG 1 tablet as needed, may take second dose at least 2 hours after first dose up to 2 tablets per day as needed Orally Once a day 03/15/2024 Active Meloxicam 15 MG Take 1 tablet by once daily; Duration: 90 Active Venlafaxine HCl 37.5 MG Take 1 tablet by mouth once daily; Duration: 90 Active Rosuvastatin Calcium 10 MG 1 tab(s) oral ly once a day; Duration: 90 days Active Cyclobenzaprine HCl 5 MG 1 tablet at bed time as needed Orally Once a day 01/04/2024 Active Potassium Chloride ER 10 MEQ Take 1 tabl et by mouth twice daily; Duration: 90 Active Lisinopril-hydroCHLOROthiazi d e 20-25 MG 1 tablet Orally Once a day; Duration: 90 days Active Problems Problem Type SNOMED Code ICD Code Onset Dates Problem Status W/U Status Risk Notes Problem Essential hypertension (82092367) Essential hypertension (I10) Active confirmed Vital Signs Blood pressure systolic 120 mm Hg 03/29/19 Blood pressure diastolic 84 mm Hg 025 Heart Rate 83 /min 03/29/2024 Height 62 in 03/29/2024 Weight 170.4 lbs 03/29/2024 BMI 31.16 kg/m2 03/29/2024 Encounters Encounter Location Date Provider Diagnosis [facility] [address] [facility] [address] [place] [address] [place] [id number] 03/29/2024 Meg Evans Lower extremity elizabeth a R60.0 ; Essential hypertension I10 and Renal insufficiency N28.9 Assessments Encounter Date Diagnosis (ICD Code) Assessment Notes Treatment Notes Treatment Clinical Notes Section Notes 03/29/2024 Lower extremity edema (ICD-10 - R60.0) Resolved. 03/29/2024 Essential hypertension (ICD-10 - I10) 03/29/2024 Renal insufficiency (ICD-10 - N28.9) Plan Of Treatment Treatment Notes Assessment Notes Lower extremity edema Resolved. 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 Ckup & labs. 2. Needs colon cancer screening. * HPI: H PI: 58 year old female presents with c/o Patient is here today for?Pt is here today for a check up and labs. Pt sts she is doing well and has no new concerns or complaints at this time. * ROS: D ERMATOLOGY: no R jelena. n o H esperanza. G ASTROENTEROLOGY: no N ausea. n o V omiting. n o D iarrhea.? U ROLOGY: no D ifficulty urinating. n o B lood in urine. * Medical History: B lepharitis. * Surgical History: p artial hysterectomy 2001. * Hospitalization/Major Diagno stic Procedure[place] [facility] [place] [facility] [place] * Family History: F ather: . M other: alive, diagnosed with Hypertension. 2 brother(s) , 2 sister(s) - healthy. 2 son(s) - healthy. . * Social History: C URRENT TOBACCO USE: No . C affeine: no. Marital Status: . Alcohol: no. * Medications: T aking Lisinopril-hydroCHLOROthiazide 20-25 MG Tablet 1 tablet Orally Once a day , Taking Potassium Chloride ER 10 MEQ Tablet Extended Release Take 1 tablet by mouth twice daily , Taking Cyclobenzaprine HCl 5 MG Tablet 1 tablet at bedtime as needed Orally Once a day , Taking Rosuvastatin Calcium 10 MG Tablet 1 tab(s) orally once a day , Taking Venlafaxine HCl 37.5 MG Tablet Take 1 tablet by mouth once daily , Taking Meloxicam 15 MG Tablet Take 1 tablet by mouth once daily , Taking Ubrelvy 100 MG Tablet 1 tablet as needed, may take second dose at least 2 hours after first dose up to 2 tablets per day as needed Orally Once a day , Medication List reviewed and reconciled with the patient * Allergies: N .K.D.A. Objective: * Vitals: W t:170.4, Temp:98.9, BP:120/84, HR:83, Nurse:AVIVA, Ht: 62, BMI:31.16. * Examination: G eneral Examination: General Appearance: [...] bilaterally. E xtremities: n o leg edema. Assessment: * Assessment: 1. L ower extremity edema - R60.0 (Primary) 2 . E ssential hypertension - I10 3 . R enal insufficiency - N28.9 Plan: * Treatment: 2. R enal insufficiency L AB: P-Basic Metabolic Panel (BMP) (Collection Date & Time - 03/29/2024 03:12 PM) g joel 105, bun 22 Value Reference Range B UN 22 H 6-20 - mg/dL * C alcium 9.7 8.6-10.4 - mg/dL * C hloride 104 97-108 - mmol/L * C O2 26 22-32 - mmol/L * C reatinine 0.68 0.50-1.00 - mg/dL * G lucose 105 H 65-99 - mg/dL * P otassium 4.2 3.5-5.3 - mmol/L * S odium 142 135-145 - mmol/L * e GFR by Creatinine 101 >59 - mL/min/1.73m2 * Meg Evans 04/03/2024 11 :27:57 AM > see TE * Follow Up: v ia phone to report test results * Images: Billing Information: * Visit Code: 68370 Office Visit, Est Pt., Level 4. * Procedure Codes: * Electronic signature of REJI Hayes on 01/24/2025 at 12:33 PM EST Sign off status: Pending * Provider: REJI Obando Date: 0 03/29/2024 Generated for Esdrasi ng/Fazenaidag/eTransmitting on: 03/26/2024 12:33 PM EST History and Physical Notes * HPI (History of Present Illness) Category Sub-Category Detail Notes Category Not es HPI Patient is here today for Pt is here today for a check up and labs. Pt sts she is doing well and has no new concerns or complaints at this time Examination [...]
--- OUTSIDE RECORDS SUMMARY | 2024-08-30 05:00 | XMS_ITS ---
Author Organization [facility] Address [address] [id number] Care Team Providers Care Plumbing Designer Name Role Phone Owen Brown Primary Care Provider [phone] Meg Evans Unavailable [phone] Allergies No Known Allergies Results Component Value Reference Range Notes CBC Venipuncture (in house) Reviewed date:09/04/2024 12:57:23 PM Interpretation:Normal Performing Lab: Notes/Report: Normal wbc 5.3 3.5 - 10 lymph 25.4 15 - 50 mid 7.0 2 - 15 gran 67.6 35 - 80 rbc 6.61 3.5 - 5.5 hgb 18.4 11.5 - 16.5 hct 56.9 35 - 55 mcv 86.0 75 - 100 mch 27.8 25 - 35 mchc 32.3 31 - 38 platlet 182 100 - 400 P-Comprehensive Metabolic Pa bairon (CMP) Reviewed date:09/04/2024 12:57:23 PM Interpretation:Normal Performing Lab: Notes/Report: Test performed by [facility] , [address], [place] [address] Geronimo Mcdonnell MD, Awning Installer CLIA: [id number] Sodium 142 135-145 mmol/L Potassium 5.0 3.5-5.3 mmol/L Chloride 104 97-108 mmol/L CO2 24 22-32 mmol/L Glucose 93 65-99 mg/dL BUN 23 6-20 mg/dL Creatinine 0.72 0.50-1.00 mg/dL Calcium 10.2 8.6-10.4 mg/dL eGFR by Creatinine 97 >59 mL/min/1.73m2 Protein 7.2 6.0-8.3 g/dL Albumin 5.0 3.5-5.3 g/dL Alkaline Phosphatase 95 35-121 IU/L ALT (SGPT) 29 <5-47 IU/L AST (SGOT) 30 <5-40 IU/L Bilirubin, Total 0.4 <0.2-1.2 mg/dL A/G Ratio 2.3 1.1-2.5 P-Hemoglobin A1C Reviewed date:09/04/2024 12:57:23 PM Interpretation:5.9 Normal Performing Lab: Notes/Report: Test performed by [facility] [address] [place], [place] [address] [place] [address] Geronimo Mcdonnell MD, Awning Installer CLIA: [id number] Hemoglobin A1C 5.9 <5.7 % The following HbA1c ranges recommended by the [place] [employer] (ADA) may be used as an aid in the diagnosis of diabetes mellitus. HbA1c Suggested Diagnosis >=6.5% Diabetic 5.7% - 6.4% Pre-Diabetic <5.7% Non-Diabetic P-Lipid Panel Reviewed date:09/04/2024 12:57:23 PM Interpretation:Normal Performing Lab: Notes/Report: Test performed by [facility] [address] [place] [address] [address] , [place] [address] Geronimo Mcdonnell MD, Awning Installer CLIA: [id number] Cholesterol 172 <200 mg/dL Triglycerides 150 <150 mg/dL HDL Cholesterol 51 >39 mg/dL Cholesterol / HDL Ratio 3.37 0.00-4.44 Ratio Non-HDL Cholesterol 121 <130 mg/dL LDL Cholesterol (Calculation) 91 <130 mg/dL LDL Cholesterol Levels* Less than 100 mg/dL Optimal 100 to 129 mg/dL Near Optimal/ Above Optimal 130 to 159 mg/dL Borderline High 160 to 189 mg/dL High 190 mg/dL and above Very High * Categories as recommended by the 2004 ATPIII guidelines LDL/HDL Ratio 1.8 <3.3 Ratio LDL Cholesterol Patient History Test Date: 08/30/2024 LDL Results: 91 Units: mg/dL % Change: - Estimated Average Glucose Reviewed date:09/04/2024 12:57:23 PM Interpretation:Normal Performing Lab: Notes/Report: Test performed by [employer] [facility] [address] , [place] [id number] Geronimo Mcdonnell MD, Awning Installer CLIA: [id number] Estimated Average Glucose (eAG) 123 Estimated Average Glucose (eAG) is calculated using the equation eAG = (28.7 x HbA1c) - 46.7 based on the guidelines established by the ADA. If the patient has certain diseases including kidney disease, sickle cell anemia, thalassemia, or is taking medications such as dapsone, erythropoietin, or iron, eAG should not be evaluated. proBrain Natriuretic Peptide Reviewed date:09/04/2024 12:57:23 PM Interpretation:Normal Performing Lab: Notes/Report: Test performed by [employer] [address], [place] [address] Geronimo Mcdonnell MD, Awning Installer CLIA: [id number] proBrain Natriuretic Peptide 52 <300 pg/mL Please note the updated reference range values which are stratified by age. Positive >900 pg/mL Indeterminate 300-900 pg/mL Negative <300 pg/mL REASON FOR VISIT 6 months w/labs Medications Medication SIG (Take, Route, Frequency, Duration) Notes Start Date End Date Status Rizatriptan Benzoate 10 MG 1 tablet at o nset of migraine, may repeat dose in 2 hours if migraine has not resolved Orally Once a day 04/17/2024 Active Potassium Chloride ER 10 MEQ Take 1 tabl et by mouth twice daily; Duration: 90 Active Meloxicam 15 MG 1 tablet Orally Once a day; Duration: 30 days Active Rosuvastatin Calcium 10 MG 1 tab(s) oral ly once a day; Duration: 90 days Active Ubrelvy 100 MG 1 tablet as needed, may take second dose at least 2 hours after first dose up to 2 tablets per day as needed Orally Once a day 03/15/2024 Active Cyclobenzaprine HCl 5 MG 1 tablet at bed time as needed Orally Once a day 01/04/2024 Active Lisinopril-hydroCHLOROthiazi d e 20-25 MG 1 tablet Orally Once a day; Duration: 30 days Active Venlafaxine HCl 37.5 MG 1 tablet with fo od Orally Once a day; Duration: 30 days Active Vital Signs Blood pressure systolic 122 mm Hg 08/31/19 25 Blood pressure diastolic 82 mm Hg 025 Heart Rate 75 /min 08/30/2024 Height 62 in 08/30/2024 Weight 166.0 lbs 08/30/2024 BMI 30.36 kg/m2 08/30/2024 Encounters Encounter Location Date [facility] [id number] [address] [id number] 08/30/2024 Meg Cristina Lower extremity elizabeth a R60.0 ; Essential hypertension I10 ; Renal insufficiency N28.9 ; Neck muscle spasm M62.838 ; Pure hypercholesterolemia E78.00 and Impaired fasting glucose R73.01 Assessments Encounter Date Diagnosis (ICD Code) Assessment Notes Treatment Notes Treatment Clinical Notes Section Notes 08/30/2024 Lower extremity elizabeth a (ICD-10 - R60.0) 08/30/2024 Essential hypertensi on (ICD-10 - I10) 08/30/2024 Renal insufficiency (ICD-10 - N28.9) 08/30/2024 Neck muscle spasm (ICD-10 - M62.838) Getting injections at pain management. 08/30/2024 Pure hypercholesterolemia (ICD-10 - E78.00) 08/30/2024 Impaired fasting glu cose (ICD-10 - R73.01) Plan Of Treatment Treatment Notes Assessment Notes Neck muscle spasm Getting injections a t pain management. Pending Test Test Name Order Date P-BNP (Brain Natriuretic Peptide) 2024 Next Appt Details Follow Up: via phone to repo rt test results, Reason: Progress Notes * NAIF ROSADODOB:1965 ( 59 yo F)Acc No.[id number]:08/30/2024 Progress Notes Patient: NAIF STRINGER Provider: REJI Obando :1965 A ge:59 Y S ex:Female Date:08/30/2024 Address:[address] [place], [place] [address], [phone] Pcp:Owen Brown Subjective: * Chief Complaints: * 1 . 6 months w/labs. * HPI: H PI: 59 year old female presents with c/o Patient is here today for?Pt is here today for a 6 month check up. Pt sts she is doing well and has no concerns at this time. Pt is fasting. * ROS: D ERMATOLOGY: no R jelena. n o H esperanza. G ASTROENTEROLOGY: no N ausea. n o V omiting. n o D iarrhea.? U ROLOGY: no D ifficulty urinating. n o B lood in urine. * Medical History: B lepharitis. * Surgical History: p artial hysterectomy 2001. * Hospitalization/Major Diagno stic Procedure[place] [facility] [place] [facility] [place] * Family History: F ather: . M other: alive, diagnosed with Hypertension. 2 brother(s) , 2 sister(s) - healthy. 2 son(s) - healthy. . * Social History: C URRENT TOBACCO USE: No . C affeine: no. Marital Status: . Alcohol: no. * Medications: T aking Cyclobenzaprine HCl 5 MG Tablet 1 tablet at bedtime as needed Orally Once a day , Taking Ubrelvy 100 MG Tablet 1 tablet as needed, may take second dose at least 2 hours after first dose up to 2 tablets per day as needed Orally Once a day , Taking Potassium Chloride ER 10 MEQ Tablet Extended Release Take 1 tablet by mouth twice daily , Taking Rizatriptan Benzoate 10 MG Tablet Disintegrating 1 tablet at onset of migraine, may repeat dose in 2 hours if migraine has not resolved Orally Once a day , Taking Rosuvastatin Calcium 10 MG Tablet 1 tab(s) orally once a day , Taking Meloxicam 15 MG Tablet 1 tablet Orally Once a day , Taking Venlafaxine HCl 37.5 MG Tablet 1 tablet with food Orally Once a day , Taking Lisinopril- hydroCHLOROthiazide 20-25 MG Tablet 1 tablet Orally Once a day , Medication List reviewed and reconciled with the patient * Allergies: N .K.D.A. Objective: * Vitals: W t: 166.0, Temp: 98.6, BP: 122/82, HR: 75, Nurse: kelly, Ht: 62, BMI:30.36. * Examination: G eneral Examination: General Appearance: N AD. H EENT: u nremarkable.?Oral cavity: n o lesions, mucosa moist and WNL, no erythema. N tarun: s upple, no lymphadenopathy. C hest: n ormal shape and expansion. H eart: R SR. L ungs: c lear to auscultation. A bdomen: b owel sounds present, soft and nontender. N eurologic Exam: I ntact, gait normal. S kin: n ormal, no rash. P eripheral pulses: n ormal (2+) bilaterally. E xtremities: t race bilaterally. Assessment: * Assessment: 1. E ssential hypertension - I10 (Primary) 2 . L ower extremity edema - R60.0 3 . R enal insufficiency - N28.9 4 . N tarun muscle spasm - M62.838 5 . P ure hypercholesterolemia - E78.00 6 . I mpaired fasting glucose - R73.01 Plan: * Treatment: Value Reference Range A /G Ratio 2.3 1.1-2.5 - * A lbumin 5.0 3.5-5.3 - g/dL * A lkaline Phosphatase 95 35-121 - IU/L * A LT (SGPT) 29 <5-47 - IU/L * A ST (SGOT) 30 <5-40 - IU/L * B ilirubin, Total 0.4 <0.2-1.2 - mg/dL * B UN 23 H 6-20 - mg/dL * C alcium 10.2 8.6-10.4 - mg/dL * C hloride 104 97-108 - mmol/L * C O2 24 22-32 - mmol/L * C reatinine 0.72 0.50-1.00 - mg/dL * G lucose 93 65-99 - mg/dL * P otassium 5.0 3.5-5.3 - mmol/L * S odium 142 135-145 - mmol/L * P rotein 7.2 6.0-8.3 - g/dL * e GFR by Creatinine 97 >59 - mL/min/1.73m2 * Meg Evans 08/30/2024 1 0:26:34 AM EDT >room 5, purple Maureen Wetzel 09/04/2024 12:50:55 PM EDT >left message for pt to call back Maureen Wetzel 09/04/2024 12:57:10 PM EDT > Patient informed of normal results. ?LAB: CBC Venipuncture (in house) (Collection Date & Time - 08/30/2024)? Normal* Value Reference Range w bc 5.3 3.5 - 10 * l ymph 25.4 15 - 50 * m id 7.0 2 - 15 * g ran 67.6 35 - 80 * r bc 6.61 3.5 - 5.5 * h gb 18.4 11.5 - 16.5 * h ct 56.9 35 - 55 * m cv 86.0 75 - 100 * m ch 27.8 25 - 35 * m chc 32.3 31 - 38 * p latlet 182 100 - 400 * Areln Gibson 08/30/2024 11:4 4:44 AM EDT > Maureen Wetzel 09/04/2024 12:50:55 PM EDT >left message for pt to call back Maureen Wetzel 09/04/2024 12:57:10 PM EDT > Patient informed of normal results. 2.?Lower extremity edema?LAB: P-BNP (Brain Natriuretic Peptide)* Meg Evans 08/30/2024 1 0:26:34 AM EDT >room 5, purple 3.?Neck muscle spasm? Notes: Getting injections at pain management.??4.?Pure hypercholesterolemia?LAB: P-Lipid Panel (Collection Date & Time - 08/30/2024 09:37 AM)?Normal* Value Reference Range C holesterol / HDL Ratio 3.37 0.00-4.44 - Ratio * C holesterol 172 <200 - mg/dL * H DL Cholesterol 51 >39 - mg/dL * L DL Cholesterol (Calculation) 91 <130 - mg/d L * L DL/HDL Ratio 1.8 <3.3 - Ratio * N on-HDL Cholesterol 121 <130 - mg/dL * T riglycerides 150 H <150 - mg/dL * Meg Evans 08/30/2024 1 0:26:34 AM EDT >room 5, Maureen Hansen 09/04/2024 12:50:55 PM EDT >left message for pt to call back Maureen Wetzel 09/04/2024 12:57:10 PM EDT > Patient informed of normal results. 5.?Impaired fasting glucose?LAB: P-Hemoglobin A1C (Collection Date & Time - 08/30/2024 09:37 AM)?5.9 Normal* Value Reference Range H emoglobin A1C 5.9 H <5.7 - % * Meg Evans 08/30/2024 1 0:26:34 AM EDT >room 5, Maureen Hansen 09/04/2024 12:50:55 PM EDT >left message for pt to call back Maureen Wetzel 09/04/2024 12:57:10 PM EDT > Patient informed of normal results. * Labs: * L ab: proBrain Natriuretic Peptide (Collection Date & Time - 08/30/2024 09:37 AM) N ormal Value Reference Range p roBrain Natriuretic Peptide 52 <300 - pg/mL * [facility], IT support 08/31/2024 11:20:05 : This order was created by the Interface. Maureen Wetzel 09/04/2024 12:50:55 PM EDT >left message for pt to call back Maureen Wetzel 09/04/2024 12:57:10 PM EDT > Patient informed of normal results. ?Lab: Estimated Average Glucose (Collection Date & Time - 08/30/2024 09:37 AM)?Normal* Value Reference Range E stimated Average Glucose 123 - mg/dL * [facility], IT support 08/31/2024 11:20:06 : This order was created by the Interface. Maureen Wetzel 09/04/2024 12:50:55 PM EDT >left message for pt to call back Maureen Wetzel 09/04/2024 12:57:10 PM EDT > Patient informed of normal results. * Procedure Codes: 8 5025 CBC WITH AUTO DIFF, 51211 VENIPUNCT, ROUTINE*, 1036F TOBACCO NON-USER, 3044F HG A1C LEVEL LT 7.0%, G8950 PREHTN/HTN BP DOC INDCD F/U DOC, G8752 MOST RECENT SYSTOLIC BP < 140MM HG, G8754 MOST RECENT DIASTOLIC BP < 90MM HG * Follow Up: v ia phone to report test results * Images: Billing Information: * Visit Code: 23351 Office Visit, Est Pt., Level 4. * Procedure Codes: 14805 CBC WITH AUTO DIFF. 53292 VENIPUNCT, ROUTINE*. 1036F TOBACCO NON-USER. 3044F HG A1C LEVEL LT 7.0%. G8950 PREHTN/HTN BP DOC INDCD F/U DOC. G8752 MOST RECENT SYSTOLIC BP < 140MM HG. G8754 MOST RECENT DIASTOLIC BP < 90MM HG. * Electronic signature of REJI Hayes on 01/24/2025 at 12:36 PM EST Sign off status: Pending * Provider: REJI Obando Date: 0 08/30/2024 Generated for Debbie ceballos/Ame/Juanjose on: 1 03/26/2024 12:36 PM EST History and Physical Notes * HPI (History of Present Illness) Category Sub-Category Detail Notes Category Not es HPI Patient is here today for Pt is here today for a 6 month check up. Pt sts she is doing well and has no concerns at this time. Pt is fasting Examination Category Sub-Category Detail Notes Category Not es General Examination HEENT: unremarkable Heart: RSR Lungs: clear to auscultatio n Abdomen: bowel sounds present , soft and nontender Extremities: trace bilaterally General Appearance: NAD Skin: normal, no rash Neurologic Exam: Intact, gait normal Neck: supple, no lymphaden opathy Oral cavity: no lesions, mucosa m oist and WNL, no erythema Peripheral pulses: normal (2+) bilatera lly Chest: normal shape and exp ansion
--- OUTSIDE RECORDS SUMMARY | 2024-11-29 08:30 | XMS_ITS ---
Author Organization [facility] Address [address] [place] [id number] Care Team Providers Care Ground [employer] Name Role Phone Owen Brown Primary Care Provider [phone] Meg Evans Unavailable [phone] Allergies No Known Allergies REASON FOR VISIT physical for work Medications Medication SIG (Take, Route, Frequency, Duration) Notes Start Date End Date Status Venlafaxine HCl 37.5 MG 1 tablet with fo od Orally Once a day; Duration: 30 days Active Flonase Allergy Relief 50 MCG/ACT 1 spray in each nostril Nasally Once a day; Duration: 30 days 11/29/2024 Active Cyclobenzaprine HCl 5 MG 1 tablet at bed time as needed Orally Once a day 01/04/2024 Active Ubrelvy 100 MG 1 tablet as needed, may take second dose at least 2 hours after first dose up to 2 tablets per day as needed Orally Once a day 03/15/2024 Active Loratadine 10 MG 1 tablet Orally Once a day; Duration: 30 days 11/29/2024 Active Lisinopril-hydroCHLOROthiazi d e 20-25 MG Take 1 tablet by mouth once daily for 30 days; Duration: 30 Active Meloxicam 15 MG Take 1 tablet by mayank once daily; Duration: 30 Active Rizatriptan Benzoate 10 MG 1 tablet at o nset of migraine, may repeat dose in 2 hours if migraine has not resolved Orally Once a day 04/17/2024 Active Rosuvastatin Calcium 10 MG 1 tab(s) oral ly once a day; Duration: 90 days Active Potassium Chloride ER 10 MEQ Take 1 tabl et by mouth twice daily; Duration: 90 Active Immunizations Vaccine Route Administration Date Status Comme nts Fluzone Quad (6months&older) IM Intramuscular 11/29/2024 Administered Problems Problem Type SNOMED Code ICD Code Onset Dates Problem Status W/U Status Risk Notes Problem Seasonal allergic rhinitis (782840062) Seasonal allergic rhinitis, unspecified trigger (J30.2) Active confirmed Vital Signs Blood pressure systolic 130 mm Hg 11/30/19 25 Blood pressure diastolic 78 mm Hg 025 Heart Rate 78 /min 11/29/2024 Height 62 in 11/29/2024 Weight 170.2 lbs 11/29/2024 BMI 31.13 kg/m2 11/29/2024 Encounters Encounter Location Date Provider Diagnosis [facility] [address] [facility] [address] [place] [id number] 11/29/2024 Meg Evans Routine physical examination Z00.00 and Seasonal allergic rhinitis, unspecified trigger J30.2 Assessments Encounter Date Diagnosis (ICD Code) Assessment Notes Treatment Notes Treatment Clinical Notes Section Notes 11/29/2024 Routine physical examination (ICD-10 - Z00.00) Healthy female, form filled out for work. 11/29/2024 Seasonal allergic rhinitis, unspecified trigger (ICD-10 - J30.2) Patient would like something for allergies. Plan Of Treatment Medication Medication Name Sig Start Date Stop Date Notes Flonase Allergy Relief 50 MCG/ACT 1 spray in each nostril Nasally Once a day; Duration: 30 days 11/29/2024 Loratadine 10 MG 1 tablet Orally Once a day; Duration: 30 days 11/29/2024 Treatment Notes Assessment Notes Routine physical examination Healthy fem rico, form filled out for work. Seasonal allergic rhinitis, unspecified trigger Patient would like something for allergies. Next Appt Details Follow Up: prn, Reason: Progress Notes * NAIF ROSADODOB:1965 ( 59 yo F)Acc No.[id number]:11/29/2024 Physical Patient: NAIF STRINGER Provider: REJI Obando :1965 A ge:59 Y S ex:Female Date:11/29/2024 Address:[address] [place] [address], [place] [id number] Pcp:Owen Brown Subjective: * Chief Complaints: * 1 . Physical for work. * HPI: H PI: 59 year old female presents with c/o Patient is here today for?Pt is here today to have a physical done for work. * ROS: D ERMATOLOGY: no R jelena. n o H esperanza. G ASTROENTEROLOGY: no N ausea. n o V omiting. n o D iarrhea.? U ROLOGY: no D ifficulty urinating. n o B lood in urine. * Medical History: B lepharitis. * Surgical History: p artial hysterectomy 2001. * Hospitalization/Major Diagno stic Procedure: c [facility] - partial hysterectomy 2001, [facility] [place] - left leg pain [...] needed Orally Once a day , Taking Rizatriptan Benzoate 10 MG Tablet Disintegrating 1 tablet at onset of migraine, may repeat dose in 2 hours if migraine has not resolved Orally Once a day , Taking Rosuvastatin Calcium 10 MG Tablet 1 tab(s) orally once a day , Taking Lisinopril-hydroCHLOROthiazide 20-25 MG Tablet Take 1 tablet by mouth once daily for 30 days , Taking Meloxicam 15 MG Tablet Take 1 tablet by mouth once daily , Taking Potassium Chloride ER 10 MEQ Tablet Extended Release Take 1 tablet by mouth twice daily , Taking Venlafaxine HCl 37.5 MG Tablet 1 tablet with food Orally Once a day , Medication List reviewed and reconciled with the patient * Allergies: N .K.D.A. Objective: * Vitals: W t: 170.2, Temp: 98.4, BP: 130/78, HR: 78, O2 Sat: 96% on RA, Nurse: mmh, Ht: 62, BMI:31.13. * Examination: G eneral Examination: General Appearance: N AD. H EENT: u nremarkable.?Oral cavity: n o lesions, mucosa moist and WNL, no erythema. N tarun: s upple, no lymphadenopathy. C hest: n ormal shape and expansion. H eart: R SR. L ungs: c lear to auscultation. A bdomen: b owel sounds present, soft and nontender, no organomegaly or masses. N eurologic Exam: I ntact, gait normal. S kin: n ormal, no rash. P eripheral pulses: n ormal (2+) bilaterally. E xtremities: n o leg edema. ? Assessment: * Assessment: 1. R outine physical examination - Z00.00 (Primary) 2 . S easonal allergic rhinitis, unspecified trigger - J30.2 Plan: * Treatment: 2. S easonal allergic rhinitis, unspecified trigger Start Loratadine Tablet, 10 MG, 1 tablet, Orally, Once a day, 30 days, 30 Tablet, Refills 2; S tart Flonase Allergy Relief Suspension, 50 MCG/ACT, 1 spray in each nostril, Nasally, Once a day, 30 days, 1, Refills 2. Notes: Patient would like something for allergies. * Immunizations: Fluzone Quad (6months&older) : 0.5 mL (Route: Intramuscular) given by AVIVA Logan on Right Arm (Routine physical examination) * Procedure Codes: 1 036F TOBACCO NON-USER, 3075F SYST BP GE 130 - 139MM HG, 3078F DIAST BP < 80 MM HG * Follow Up: p rn * Images: Billing Information: * Visit Code: 81074 Preventive Care Est Pt Age 40-64. Modifiers: 91791 Office Visit, Est Pt., Level 3. * Procedure Codes: 1036F TOBACCO NON-USER. 3075F SYST BP GE 130 - 139MM HG. 3078F DIAST BP < 80 MM HG. * Electronic signature of REJI Hayes on 01/24/2025 at 12:34 PM EST Sign off status: Pending * Provider: REJI Obando Date: 0 11/29/2024 Generated for Debbie ceballos/Ame/eTransmitting on: 03/26/2024 12:34 PM EST History and Physical Notes * HPI (History of Present Illness) Category Sub-Category Detail Notes Category Not es HPI Patient is here today for Pt is here today to have a physical done for work Examination Category Sub-Category Detail Notes Category Not es General Examination HEENT: unremarkable Heart: RSR Lungs: clear to auscultatio n Abdomen: bowel sounds present , soft and nontender, no organomegaly or masses Extremities: no leg edema General Appearance: NAD Skin: normal, no rash Neurologic Exam: Intact, gait normal Neck: supple, no lymphaden opathy Oral cavity: no lesions, mucosa m oist and WNL, no erythema Peripheral pulses: normal (2+) bilatera lly Chest: normal shape and exp ansion
--- OUTSIDE RECORDS SUMMARY | 2024-12-17 07:04 | XMS_ITS ---
Author [facility] Address [address] [facility] [address] [place] [id number] Care Team Providers Care Partner Manager Name Role Phone Owen Brown Primary Care Provider [phone] REASON FOR VISIT due bharat Encounters Encounter Location Date Provider Diagnosis [facility] [address] [place] [phone] 12/17/2024 Owen Brown Breast cancer screening by mammogram Z12.31 Assessments Encounter Date Diagnosis (ICD Code) Assessment Notes Treatment Notes Treatment Clinical Notes Section Notes 12/17/2024 Breast cancer screening by mammogram (ICD-10 - Z12.31) Plan Of Treatment Pending Test Test Name Order Date Mammogram 12/17/2024 Progress Notes * NAIF ROSADODOB:1965 ( 59 yo F)Acc No.[id number]:12/17/2024 Patient: NAIF STRINGER :1965 A ge:59 Y S ex:Female [facility] [facility] [place] [address] Subjective: * Chief Complaints: * D ue bharat * Medical History: * Surgical History: * Hospitalization/Major Diagno stic Procedure: * Medications: Objective: * Vitals: * Physical Examination: Assessment: * Assessment: 1. B reast cancer screening by mammogram - Z12.31 (Primary) Plan: * Treatment: * Procedure Codes: * true * Date: Generated for Printi ng/Faxing/eTransmitting on: 03/26/2024 12:37 PM EST
--- NOTE | 2025-01-24 12:34 | MM_ITS ---
PROCEDURE INFORMATION: Exam: MG Bilateral Screening 3D Mammography Exam date and time: 01/24/2025 12:37 PM Age: 59 years old Clinical indication: Screening. No family history of breast cancer. TECHNIQUE: Imaging protocol: Bilateral Screening tomosynthesis and 2D mammography including computer-aided detection (CAD) when performed. COMPARISON: 1. MG MM DIG SCREENING MAMM BI W/CAD 01/22/2024 3:46 PM 2. MG MM DIG SCREENING MAMM BI W/CAD 01/20/2023 3:15 PM 3. MG MM DIG SCREENING MAMM BI W/CAD 01/18/2022 9:17 AM 4. MG DMSB DIG MAMM-SCREEN PAIGE 12/16/2013 2:32 PM FINDINGS: MAMMOGRAPHY: Breast composition: The breasts are almost entirely fatty. Mass: No suspicious mass. A Architectural distortion: None. Calcifications: No suspicious calcifications. Asymmetric density: None. Skin thickening: None. Axillary adenopathy: None. IMPRESSION: No mammographic evidence of malignancy. Annual screening is recommended unless otherwise clinically indicated. ASSESSMENT: BI-RADS Category 1: Negative.
--- OUTSIDE RECORDS SUMMARY | 2025-01-24 12:36 | XMS_ITS | Patient Health Record ---
Author Organization [facility] Address [address] [place] [phone] Care Team Providers Care Trade Specialist Name Role Phone Owen Brown Primary Care Provider Meg Evans Unavailable [phone] Allergies No Known Allergies Results Component Value Reference Range Notes P-Basic Metabolic Panel (BMP ) Reviewed date:04/03/2024 11:28:01 AM Interpretation:gluc 105, bun 22 Performing Lab: Notes/Report: Test performed by [facility] [address] [place] [address] , [address], [place] [address] Geronimo Mcdonnell MD, Sider Mechanic CLIA: [id number] Sodium 142 135-145 mmol/L Potassium 4.2 3.5-5.3 mmol/L Chloride 104 97-108 mmol/L CO2 26 22-32 mmol/L Glucose 105 65-99 mg/dL BUN 22 6-20 mg/dL Creatinine 0.68 0.50-1.00 mg/dL Calcium 9.7 8.6-10.4 mg/dL eGFR by Creatinine 101 >59 mL/min/1.73m2 proBrain Natriuretic Peptide Reviewed date:09/04/2024 12:57:23 PM Interpretation:Normal Performing Lab: Notes/Report: CLIA: [id number] Geronimo Mcdonnell MD, Sider Mechanic [address] [place] [address] , [address], [place] [address] Test performed by [facility] proBrain Natriuretic Peptide 52 <300 pg/mL Please note the updated reference range values which are stratified by age. Positive >900 pg/mL Indeterminate 300-900 pg/mL Negative <300 pg/mL Estimated Average Glucose Reviewed date:09/04/2024 12:57:23 PM Interpretation:Normal Performing Lab: Notes/Report: Test performed by [facility] [address] [place] [address] [address] Noble , [place] [address] Geronimo Mcdonnell MD, Sider Mechanic CLIA: [id number] Estimated Average Glucose (eAG) 123 Estimated Average Glucose (eAG) is calculated using the equation eAG = (28.7 x HbA1c) - 46.7 based on the guidelines established by the ADA. If the patient has certain diseases including kidney disease, sickle cell anemia, thalassemia, or is taking medications such as dapsone, erythropoietin, or iron, eAG should not be evaluated. CBC Venipuncture (in house) Reviewed date:09/04/2024 12:57:23 [...] Interpretation:Normal Performing Lab: Notes/Report: Test performed by [facility] [address] [place] [address] Michael Noble, [place] [address] Geronimo Mcdonnell MD, Sider Mechanic CLIA: [id number] Sodium 142 135-145 mmol/L Potassium 5.0 3.5-5.3 [...] Normal Performing Lab: Notes/Report: Test performed by [facility] [address] [place], [place] [address] [place] [address] Geronimo Mcdonnell MD, Sider Mechanic CLIA: [id number] Hemoglobin A1C 5.9 <5.7 % The following HbA1c ranges recommended by the [place] [employer] (ADA) may be used as an aid in the diagnosis of diabetes mellitus. HbA1c Suggested Diagnosis >=6.5% Diabetic 5.7% - 6.4% Pre-Diabetic <5.7% Non-Diabetic P-Lipid Panel Reviewed date:09/04/2024 12:57:23 PM Interpretation:Normal Performing Lab: Notes/Report: Test performed by [facility] [address] [place] [address] [address] C, [place] [address] Geronimo Mcdonnell MD, Sider Mechanic CLIA: [id number] Cholesterol 172 <200 mg/dL Triglycerides 150 <150 [...] Results: 91 Units: mg/dL % Change: - Reason For Referral No Information Medications Medication SIG (Take, Route, Frequency, Duration) [...] needed Orally Once a day 03/15/2024 Active Potassium Chloride ER 10 MEQ Take 1 tabl et by mouth twice daily; Duration: 90 Active Venlafaxine HCl 37.5 MG 1 tablet with fo od Orally Once a day; Duration: 30 days Active Flonase Allergy Relief 50 MCG/ACT 1 spray in each nostril Nasally Once a day; Duration: 30 days 11/29/2024 Active Cyclobenzaprine HCl 5 MG 1 tablet at bed time as needed Orally Once a day 01/04/2024 Active Meloxicam 15 MG Take 1 tablet by [facility] once daily; Duration: 30 Active Lisinopril-hydroCHLOROthiazi d e 20-25 MG 1 tablet Orally Once a day; Duration: 30 days Active Loratadine 10 MG 1 tablet Orally Once a day; Duration: 30 days 11/29/2024 Active Immunizations Vaccine Route Administration Date Status Roseanne nts Shingrix Unknown 09/17/2022 Administered Hepatitis A (adult) Unknown 02/27/2018 Administered Fluzone Quad (6months&older) IM Intramuscular 11/29/2024 Administered Fluzone PF Quad (6-35 months) Unknown 12/07/2015 Administered Fluzone PF Quad (6-35 months) Unknown 11/30/2016 Administered Fluzone PF Quad (6-35 months) Unknown 11/23/2019 Administered Flublok Unknown 11/11/2020 Administered COVID 19 Pfizer Unknown 05/25/2020 Administered COVID 19 Pfizer Unknown 06/22/2020 Administered COVID 19 Pfizer Unknown 11/18/2020 Administered COVID 19 Moderna Unknown 09/22/2021 Administered Problems Problem Type SNOMED Code ICD Code Onset Dates Problem Status W/U Status Risk Notes Problem Essential hypertension (73725729) Essential hypertension (I10) Active confirmed Problem Diverticulitis (60113514) Diverticulitis (K57.92) Active confirmed Problem Migraine without aura, not refractory (248465015) Migraine without aura and without status migrainosus, not intractable (G43.009) Active confirmed Problem Neck pain (26911712) Neck pain (M54.2) Active c onfirmed Problem New daily persistent headache (966711386558818) New daily persistent headache (G44.52) Active confirmed Problem Allergic rhinitis caused by pollen (16274204) Seasonal allergic rhinitis due to pollen (J30.1) Active confirmed Problem Pure hypercholesterolemia (458957818) Pure hypercholesterolemia (E78.00) Active confirmed Problem Seasonal allergic rhinitis (360408380) Seasonal allergic rhinitis, unspecified trigger (J30.2) Active confirmed Problem Menopausal symptom (22693372) Hot flashes due to menopause (N95.1) Active confirmed Problem Primary hypertension (63071182) Primary hypertension (I10) Active confirmed Problem Screening mammograph y (55549711) Screening mammogram for breast cancer (Z12.31) Active confirmed Problem Ptosis of left eyeli d (361549933317877) 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) Active confirmed Vital Signs Heart Rate 78 /min 11/29/2024 Blood pressure diastolic 78 mm Hg 11/29/2024 Height 62 in 11/29/2024 Blood pressure systolic 130 mm Hg 11/29/2024 Weight 170.2 lbs 11/29/2024 BMI 31.13 kg/m2 11/29/2024 Encounters Encounter Location Date Provider Diagnosis [facility] [address] [place] [id number] 03/29/2024 Meg Evans Lower extremity elizabeth a R60.0 ; Essential hypertension I10 and Renal insufficiency N28.9 [facility] [address] [place], [place] [id number] 08/30/2024 Meg Evans Lower extremity elizabeth a R60.0 ; Essential hypertension I10 ; Renal insufficiency N28.9 ; Neck muscle spasm M62.838 ; Pure hypercholesterolemia E78.00 and Impaired fasting glucose R73.01 [facility] [address] [place], [place] [id number] 11/29/2024 Meg Evans Routine physical examination Z00.00 and Seasonal allergic rhinitis, unspecified trigger J30.2 [facility] [address] [place], [place] [id number] 03/07/2024 Owen Brown [facility] [address] [place], [place] [id number] 03/15/2024 Owen Brown [facility] [address] [place], [place] [id number] 04/03/2024 Meglily Evans [facility] [address] [place], [place] [id number] 04/11/2024 Meglily Evans [facility] [address] [place], [place] [id number] 07/12/2024 Owen Brown [facility] [address] [place], [place] [id number] 08/28/2024 Meglily Evans [facility] [address] [place], [place] [id number] 11/21/2024 Owen Brown [facility] [address] [place], [place] [id number] 12/09/2024 Owen Brown [facility] [address] [place], [place] [id number] 12/17/2024 Owen Brown Breast cancer screen ing by mammogram Z12.31 [facility] [address] [place], [place] [id number] 12/20/2024 Owen [facility] [address] [place], [place] [id number] 01/06/2025 Owen Brown Assessments Encounter Date Diagnosis (ICD Code) Assessment Notes Treatment Notes Treatment Clinical Notes Section Notes 03/29/2024 Essential hypertensi on (ICD-10 - I10) 03/29/2024 Lower extremity elizabeth a (ICD-10 - R60.0) Resolved. 08/30/2024 Essential hypertensi on (ICD-10 - I10) 08/30/2024 Lower extremity elizabeth a (ICD-10 - R60.0) 11/29/2024 Routine physical examination (ICD-10 - Z00.00) Healthy female, form filled out for work. 11/29/2024 Seasonal allergic rhinitis, unspecified trigger (ICD-10 - J30.2) Patient would like something for allergies. 12/17/2024 Breast cancer screen ing by mammogram (ICD-10 - Z12.31) 08/30/2024 Renal insufficiency (ICD-10 - N28.9) 03/29/2024 Renal insufficiency (ICD-10 - N28.9) 08/30/2024 Neck muscle spasm (ICD-10 - M62.838) Getting injections at pain management. 08/30/2024 Pure hypercholesterolemia (ICD-10 - E78.00) 08/30/2024 Impaired fasting glu cose (ICD-10 - R73.01) Plan Of Treatment Pending Test Test Name Order Date Mammogram 12/17/2024 P-BNP (Brain Natriuretic Peptide) 2024 Insurance Providers Payer Name Payer Address Payer Phone Subscriber Number Group Number Insured Name Patient Relationship to Insured Coverage Start Date Coverage End Date [employer] [address] [place] [address] [id number] DANIEL Self - patient is the insured Medical (General) History Medical History History ICD Code Blepharitis Surgical History Surgery Date(Month/Year) partial hysterectomy 2001 [place] History Reason Date[place] [facility] [place] [facility] - partial hysterec mary 2001
--- OUTSIDE RECORDS SUMMARY | 2025-01-24 12:36 | XMS_ITS | Clinical Summary ---
Author Organization [facility] Address [address] [place] [address] Care Team Providers Care Oil Recovery Operator Name Role Phone Unavailable Primary Care Provider [...]
== END 2025-01-24 23:59 | disposition home or self-care (01) ==
LOC: RAD 12:32
PROVIDERS: PCP Physician Assistant; Visit Provider Family Medicine
DX: Z12.31 Encounter for screening mammogram for malignant neoplasm of breast (principal)
CPT/HCPCS: 77063; 77067